=== PATIENT | female | born 1950 | race Caucasian/White ===

== ENCOUNTER → 2017-07-14 11:21 | Outpatient (CLI) | payer MEDICARE, BC, SELFPAY ==
[2017-07-14 11:39] LABS: Basophils # 0.1 K/mm3 (0-0.2); Basophils % 0.9 % (0.1-2.0); Eosinophils # 0.2 K/mm3 (0.0-0.4); Eosinophils % 3.5 % (0.1-12.0); Hematocrit 41.8 % (37.0-47.0); Hemoglobin 13.8 g/dL (12.2-16.2); Lymphocytes # 1.6 K/mm3 (0.7-4.5); Mean Corpuscular HGB Conc 33.1 g/dL (31.8-35.4); Mean Corpuscular Hemoglobin 28.3 pg (27.0-31.2); Mean Corpuscular Volume 85.4 fl (81-99); Mean Platelet Volume 7.2 fl (7.4-10.4); Monocytes # 0.4 K/mm3 (0.1-1.0); Monocytes % 5.6 % (1.7-9.3); Neutrophils # 4.4 K/mm3 (1.8-7.8); Neutrophils % 66.1 % (37.0-80.0); Platelet Count 346 K/mm3 (142-424); Red Blood Count 4.89 M/mm3 (4.20-5.40); Red Cell Distribution Width 13.1 % (11.5-17.5); White Blood Count 6.7 K/mm3 (4.8-10.8)
[2017-07-14 11:58] LABS: Hemoglobin A1C 7.2 % (0.0-7.0)
[2017-07-14 12:44] LABS: Alanine Aminotransferase 29 U/L (12-78); Albumin Level 4.1 gm/dL (3.4-5.0); Albumin/Globulin Ratio 1.6 (1.1-1.8); Alkaline Phosphatase 65 U/L (46-116); Anion Gap 13.1 mEq/L (5-15); Aspartate Amino Transferase 19 U/L (15-37); Bilirubin,Total 0.4 mg/dL (0.2-1.0); Blood Urea Nitrogen 22 mg/dL (7-18); Calcium 9.5 mg/dL (8.5-10.1); Carbon Dioxide 28 mmol/L (21.0-32.0); Chloride 105 mmol/L (98-107); Cholesterol 182 mg/dL (140-200); Creatinine,Serum 0.96 mg/dL (0.55-1.02); Estimated Glomerular Filt Rate 58 ml/min (>60); GFR (African American) 70 ML/MIN (>60); Globulin 2.6 gm/dl (1.3-3.2); Glucose 178 mg/dL (74-106); HDL Cholesterol 46 mg/dL (29-89); LDL Cholesterol 101 mg/dL (0-130); Potassium 5.1 mmoL/L (3.5-5.1); Sodium 141 mmol/L (136-145); Total Protein,Serum 6.7 gm/dL (6.4-8.2); Triglycerides 173 mg/dL (30-200); VLDL Cholesterol 35 mg/dL (0-40)
== END ==
PROVIDERS: Visit Provider Internal Medicine
DX: Z79.899 Other long term (current) drug therapy (principal); I10 Essential (primary) hypertension; E78.5 Hyperlipidemia, unspecified; F41.9 Anxiety disorder, unspecified
CPT/HCPCS: 36415; 80053; 80061; 83036; 85025

== ENCOUNTER → 2018-05-04 14:50 | Outpatient (CLI) | payer MEDICARE, BC, SELFPAY ==
--- NOTE | 2018-05-04 14:56 | MM_ITS ---
MM Dig screening mamm BI w/CAD ORDERING PHYSICIAN : Kulwant Bautista PATIENT AGE: 67 years GENDER: Female COMPARISON: Prior June 2011, April 2015 bilateral mammogram. From [facility] INDICATION: Routine: SCREENINGBilateral breast reductions. No hormones no new complaints. Noncontributory family history. Previous excisional & biopsy breast reductions TECHNIQUE: Standard CC and MLO images were obtained. R2 CAD reviewed. FINDINGS: Very heterogeneous pattern with Moderate asymmetry. Scattered islands of fibroglandular density and minimal nodularity again seen which which appear similar &, overall stable-to 2012 mammograms studies when technique is considered. . No discrete new areas of significant concern... However I would recommended and encouraged annual mammography in this heterogeneous appearing breast , Reflecting the prior breast reduction, yielding slightly difficult to evaluate breast . There are some benign appearing punctate mainly skin calcifications also noted bilaterally, left breast more than right. . IMPRESSION: ...... .No new areas of significant concern Heterogeneous asymmetric breast,- in part reflecting the prior breast reduction procedure Recommend & encouraged bilateral mammography in one year BI-RADS Category: 2 Benign Finding(s) RECOMMENDED FOLLOW-UP: 1YR 1 YEAR FOLLOW-UP (A letter has been sent to the patient regarding results of the study.) .
== END ==
PROVIDERS: PCP Internal Medicine; Visit Provider Internal Medicine
DX: Z12.31 Encounter for screening mammogram for malignant neoplasm of breast (principal)
CPT/HCPCS: 77067

== ENCOUNTER → 2018-09-28 16:31 | Outpatient (CLI) | payer MEDICARE, BC, SELFPAY ==
--- NOTE | 2018-09-28 16:39 | CT_ITS ---
CT HEAD WITHOUT CONTRAST [Referring physician:Kulwant Bautista History:ITS.REASON: DIFFICULTY SPEAKING Ordering physician:Kulwant Bautista Patient age:68 years Comparison:None TECHNIQUE: Axial images obtained without contrast. Brain and bone windows reviewed. All CT scans at the facility use one or more dose reduction, viz: automated exposure control, ma/kV adjustment per patient size (including targeted exams where dose is matched to indication, i.e. head), or iterative reconstruction technique. There is no mass, acute hemorrhage or extra-axial fluid collection. Ventricles, sulci and cortical areas are normal. There are symmetrical periventricular areas of hypodensity involving the white matter with some involvement of the anterior limb of the internal capsule areas bilaterally. There is a 5 mm punctate focus of CSF density in the superior right frontal deep white matter. There is a area of opacification of the superior visualized portion of the right maxillary sinus. The remainder of the visualized paranasal sinuses and mastoid air cells are clear. There is no acute osseous process. Impression:No acute intracranial process. Although nonspecific white matter findings likely from chronic microvascular ischemic change. 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 Right maxillary sinus mucosal thickening.
== END ==
PROVIDERS: PCP Internal Medicine; Visit Provider Internal Medicine
DX: I10 Essential (primary) hypertension (principal); R47.9 Unspecified speech disturbances
CPT/HCPCS: 70450

== ENCOUNTER → 2018-10-07 09:24 | Outpatient (CLI) | payer MEDICARE, BC, SELFPAY ==
--- NOTE | 2018-10-07 | CI_ITS ---
Cerebrovascular Exam Indications: 435.9 Unspecified transient cerebral ischemia. IMPRESSIONS 1. The bilateral vertebral arteries are patent with normal antegrade flow. 2. Study suggests less than 20% stenosis involving the right internal carotid artery and the left internal carotid artery. History: Headaches. Transient ischemic attack. Carotid duplex study. Complete study and Doppler flow study including spectral analysis, color and monroy scale imaging. Height: Height: 165.1cm. Height: 65in. Weight: Weight: 70.3kg. Weight: 154.7lb. Body mass index: BMI: 25.8kg/m^2. Body surface area: BSA: 1.81m^2. Location: Vascular laboratory. Patient status: Outpatient. Tables: Arterial flow: + +--------+---------+ Location V sys V ed + +--------+---------+ Right CCA - proximal 71.7cm/s 13.3cm/s + +--------+---------+ Right CCA - distal 61.9cm/s 11.8cm/s + +--------+---------+ Right ECA 127cm/s --------- + +--------+---------+ Right ICA - proximal 69.5cm/s 22.1cm/s + +--------+---------+ Right ICA - mid 99.3cm/s 35.2cm/s + +--------+---------+ Right ICA - distal 90.5cm/s 39.6cm/s + +--------+---------+ Right vertebral 60.3cm/s --------- + +--------+---------+ Left CCA - proximal 67.8cm/s 15.7cm/s + +--------+---------+ Left CCA - distal 45.7cm/s 15.4cm/s + +--------+---------+ Left ECA 57.3cm/s --------- + +--------+---------+ Left ICA - proximal 51.7cm/s -16.8cm/s + +--------+---------+ Left ICA - mid 91.8cm/s 28.9cm/s + +--------+---------+ Left ICA - distal 98.3cm/s 28.2cm/s + +--------+---------+ Left vertebral 55.9cm/s --------- + +--------+---------+ Velocity ratios: + + + + + + Right, V sys Right, V ed Left, V sys Left, V ed + + + + + + Max ICA/dist CCA 1.6 3.36 2.15 1.88 + + + + + + (Report amended ) Electronically signed by: Rey Epperson [id number]
== END ==
PROVIDERS: PCP Internal Medicine; Visit Provider Internal Medicine
DX: G45.8 Other transient cerebral ischemic attacks and related syndromes (principal)
CPT/HCPCS: 93880

== ENCOUNTER → 2018-12-23 15:01 | Outpatient (CLI) | payer MEDICARE, BC, SELFPAY ==
[2018-12-23 15:49] LABS: Basophils # 0.1 K/mm3 (0-0.2); Basophils % 1.1 % (0.1-2.0); Eosinophils # 0.3 K/mm3 (0.0-0.4); Eosinophils % 4.6 % (0.1-12.0); Hematocrit 39.3 % (37.0-47.0); Lymphocytes # 1.5 K/mm3 (0.7-4.5); Lymphocytes % 25.8 % (10-50); Mean Corpuscular HGB Conc 30.4 g/dL (31.8-35.4); Mean Corpuscular Hemoglobin 26.6 pg (27.0-31.2); Mean Corpuscular Volume 87.3 fl (81-99); Mean Platelet Volume 7.2 fl (7.4-10.4); Monocytes # 0.5 K/mm3 (0.1-1.0); Monocytes % 8.5 % (1.7-9.3); Neutrophils # 3.5 K/mm3 (1.8-7.8); Neutrophils % 59.9 % (37.0-80.0); Platelet Count 281 K/mm3 (142-424); Red Blood Count 4.51 M/mm3 (4.20-5.40); Red Cell Distribution Width 14.4 % (11.5-17.5); White Blood Count 5.8 K/mm3 (4.8-10.8)
[2018-12-23 16:34] LABS: Hemoglobin A1C 6.2 % (0.0-7.0)
[2018-12-23 17:05] LABS: Alanine Aminotransferase 19 U/L (12-78); Albumin Level 3.8 gm/dL (3.4-5.0); Albumin/Globulin Ratio 1.5 (1.1-1.8); Alkaline Phosphatase 63 U/L (46-116); Anion Gap 11.6 mEq/L (5-15); Aspartate Amino Transferase 10 U/L (15-37); Bilirubin,Total 0.3 mg/dL (0.2-1.0); Blood Urea Nitrogen 25 mg/dL (7-18); Calcium 8.8 mg/dL (8.5-10.1); Carbon Dioxide 30 mmol/L (21.0-32.0); Chloride 103 mmol/L (98-107); Chol/HDL Ratio 3.9 (1-3.5); Cholesterol 214 mg/dL (140-200); Creatinine,Serum 0.96 mg/dL (0.55-1.02); Estimated Glomerular Filt Rate 57 ml/min (>60); GFR (African American) 70 ML/MIN (>60); Globulin 2.6 gm/dl (1.3-3.2); Glucose 105 mg/dL (74-106); HDL Cholesterol 55 mg/dL (29-89); LDL Cholesterol 126 mg/dL (0-130); Potassium 4.6 mmoL/L (3.5-5.1); Sodium 140 mmol/L (136-145); Total Protein,Serum 6.4 gm/dL (6.4-8.2); Triglycerides 167 mg/dL (30-200); VLDL Cholesterol 33 mg/dL (0-40)
[2018-12-25 17:27] LABS: Microalbumin, Urine 3.8 ug/mL (Not Estab.)
== END ==
PROVIDERS: Visit Provider Internal Medicine
DX: E11.59 Type 2 diabetes mellitus with other circulatory complications (principal); I10 Essential (primary) hypertension; E78.5 Hyperlipidemia, unspecified; I73.9 Peripheral vascular disease, unspecified; G45.8 Other transient cerebral ischemic attacks and related syndromes
CPT/HCPCS: 36415; 80053; 80061; 82043; 83036; 85025

== ENCOUNTER → 2019-05-12 12:55 | Outpatient (CLI) | payer MEDICARE, BC, SELFPAY | PROVIDERS: PCP Internal Medicine; Visit Provider Specialist | DX: G47.19 Other hypersomnia (principal); G93.40 Encephalopathy, unspecified; R06.83 Snoring; R41.3 Other amnesia; G47.33 Obstructive sleep apnea (adult) (pediatric) | CPT/HCPCS: G0399 ==

== ENCOUNTER → 2019-06-14 08:19 | Outpatient (CLI) | payer MEDICARE, BC, SELFPAY ==
--- NOTE | 2019-06-14 10:13 | MR_ITS ---
PROCEDURE: MR HEAD/BRAIN WO CON CLINICAL INDICATION: memory loss, encephalopathy Memory loss COMPARISON: HEADWO CT head/brain wo con from 09/28/2018 TECHNIQUE: Routine multiplanar multi echo sequences are performed without gadolinium enhancement. FINDINGS: No midline shift, mass effect, intracranial hemorrhage, or hydrocephalus evident. There is slight increased diffusion signal in the periventricular white matter of the right parietal lobe. This however is felt to be due to T2 shine through and not an area of acute infarction. The cerebellopontine angles, cerebellum, and brainstem have an unremarkable appearance. No midline shift or mass effect is evident. There is generalized atrophy with scattered periventricular and subcortical T2 white matter hyperintensities consistent with ischemic gliotic change from microvascular disease. Scattered perivascular dilated spaces are noted. There is opacification of the right maxillary sinus. No mastoid effusion is evident. The pituitary, optic chiasm, and craniocervical junction have an unremarkable appearance. IMPRESSION: 1. No acute intracranial findings. 2. Atrophy with chronic periventricular ischemic gliotic change. 3. Right maxillary sinus disease Dictated by: Rey Epperson MD 06/14/2019 12:14 Electronically signed by Rey Epperson MD in [place] 06/14/2019 12:14
== END ==
PROVIDERS: PCP Internal Medicine; Visit Provider Specialist
DX: G47.19 Other hypersomnia (principal); G47.30 Sleep apnea, unspecified; G93.40 Encephalopathy, unspecified; R06.83 Snoring; R41.3 Other amnesia
CPT/HCPCS: 70551; 95816

== ENCOUNTER → 2019-06-21 12:27 | Outpatient (CLI) | payer MEDICARE, BC, SELFPAY ==
[2019-06-21 15:29] LABS: Thyroid Stimulating Hormone 3.02 uIU/mL (0.465-4.68)
[2019-06-22 09:51] LABS: Folate >20.0 ng/mL (>3.0); Vitamin B12 134 pg/mL (232-1245)
== END ==
PROVIDERS: Visit Provider Specialist
DX: G47.19 Other hypersomnia (principal); G47.30 Sleep apnea, unspecified; G93.40 Encephalopathy, unspecified; R06.83 Snoring; R41.3 Other amnesia
CPT/HCPCS: 36415; 82607; 82746; 84443

== ENCOUNTER → 2019-06-24 08:30 | Outpatient (CLI) | payer MEDICARE, BC, SELFPAY ==
[2019-06-24 09:45] LABS: Chloride 104 mmol/L (98-107); Potassium 5.1 mmoL/L (3.5-5.1); Sodium 140 mmol/L (136-145)
[2019-06-24 09:47] LABS: Blood Urea Nitrogen 21 mg/dl (7-17); Estimated Glomerular Filt Rate 49 ml/min (>60); GFR (African American) 59 ML/MIN (>60)
[2019-06-24 09:48] LABS: Alanine Aminotransferase 18 U/L (12-78); Albumin Level 4.1 g/dl (3.5-5.0); Albumin/Globulin Ratio 2.2 (1.1-1.8); Alkaline Phosphatase 66 U/L (38-126); Anion Gap 14.1 mEq/L (5-15); Aspartate Amino Transferase 20 U/L (14-36); Bilirubin,Total 0.4 mg/dl (0.2-1.3); Calcium 9.3 mg/dl (8.4-10.2); Carbon Dioxide 27 mmol/L (22.0-30.0); Chol/HDL Ratio 2.5 (1-3.5); Cholesterol 112 mg/dl (140-200); Globulin 1.9 g/dL (1.3-3.2); Glucose 150 mg/dl (74-100); HDL Cholesterol 45 mg/dl (40-60); Triglycerides 142 mg/dl (30-150); VLDL Cholesterol 28 mg/dL (0-40)
[2019-06-24 09:59] LABS: Direct LDL Cholesterol 58.52 mg/dL (100-129)
[2019-06-26 16:24] LABS: Antiparietal Cell Antibody 36.8 Units (0.0-20.0)
== END ==
PROVIDERS: PCP Internal Medicine; Visit Provider Nurse Practitioner Family
DX: E53.8 Deficiency of other specified B group vitamins (principal); E78.5 Hyperlipidemia, unspecified; I10 Essential (primary) hypertension; E11.9 Type 2 diabetes mellitus without complications; Z79.84 Long term (current) use of oral hypoglycemic drugs; Z79.891 Long term (current) use of opiate analgesic
CPT/HCPCS: 36415; 80053; 80061; 83036; 83516; 86340

== ENCOUNTER → 2019-10-06 12:50 | Outpatient (CLI) | payer MEDICARE, BC, SELFPAY | PROVIDERS: PCP Internal Medicine; Visit Provider Nurse Practitioner Family | DX: G47.33 Obstructive sleep apnea (adult) (pediatric) (principal) | CPT/HCPCS: 94762 ==

== ENCOUNTER → 2019-12-22 14:21 | Outpatient (CLI) | payer MEDICARE, BC, SELFPAY ==
--- NOTE | 2019-12-22 14:27 | XR_ITS ---
PROCEDURE: XR FOOT WT BEARING LT 3V CLINICAL INDICATION: foot pain COMPARISON: No exams were available for comparison FINDINGS: No fracture or dislocation. No lytic or blastic change. There is normal mineralization. The joint spaces are well-preserved. No significant degenerative/arthritic changes. No erosive changes evident. Other findings:None. IMPRESSION: No acute findings. Dictated by: Rey Epperson MD 12/22/2019 16:32 Rey Epperson MD in [place] 12/22/2019 16:32
--- NOTE | 2019-12-22 14:27 | XR_ITS ---
PROCEDURE: XR FOOT WT BEARING RT 3V CLINICAL INDICATION: foot pain COMPARISON: No exams were available for comparison FINDINGS: No fracture or dislocation. No lytic or blastic change. There is normal mineralization. The joint spaces are well-preserved. No significant degenerative/arthritic changes. No erosive changes evident. Other findings:None. IMPRESSION: No acute findings. Dictated by: Rey Epperson MD 12/22/2019 16:32 Rey Epperson MD in [place] 12/22/2019 16:32
[2019-12-22 14:59] LABS: Basophils # 0.1 K/mm3 (0-0.2); Basophils % 1.1 % (0.1-2.0); Eosinophils # 0.3 K/mm3 (0.0-0.4); Eosinophils % 3.6 % (0.1-12.0); Hematocrit 41.7 % (37.0-47.0); Hemoglobin 13.3 g/dL (12.2-16.2); Lymphocytes # 2.2 K/mm3 (0.7-4.5); Lymphocytes % 26.4 % (10-50); Mean Corpuscular Hemoglobin 27.8 pg (27.0-31.2); Mean Corpuscular Volume 86.9 fl (81-99); Mean Platelet Volume 7.2 fl (7.4-10.4); Monocytes # 0.6 K/mm3 (0.1-1.0); Monocytes % 7.5 % (1.7-9.3); Neutrophils # 5.2 K/mm3 (1.8-7.8); Neutrophils % 61.4 % (37.0-80.0); Platelet Count 315 K/mm3 (142-424); Red Cell Distribution Width 13.4 % (11.5-17.5); White Blood Count 8.4 K/mm3 (4.8-10.8)
[2019-12-22 16:33] LABS: Erythrocyte Sedimentation Rate 11 mm/hr (0-30)
[2019-12-22 16:44] LABS: Alanine Aminotransferase 23 U/L (12-78); Albumin Level 4.4 g/dl (3.5-5.0); Albumin/Globulin Ratio 1.9 (1.1-1.8); Alkaline Phosphatase 95 U/L (38-126); Anion Gap 15.9 mEq/L (5-15); Aspartate Amino Transferase 26 U/L (14-36); Bilirubin,Total 0.4 mg/dl (0.2-1.3); Blood Urea Nitrogen 23 mg/dl (7-17); Calcium 9.2 mg/dl (8.4-10.2); Carbon Dioxide 26 mmol/L (22.0-30.0); Chloride 104 mmol/L (98-107); Estimated Glomerular Filt Rate 37 ml/min (>60); GFR (African American) 45 ML/MIN (>60); Globulin 2.3 g/dL (1.3-3.2); Glucose 116 mg/dl (74-100); Potassium 4.9 mmoL/L (3.5-5.1); Sodium 141 mmol/L (136-145); Total Protein,Serum 6.7 g/dl (6.3-8.2)
[2019-12-22 16:49] LABS: C-Reactive Protein 0.4 mg/L (0-4)
[2019-12-22 17:15] LABS: Hemoglobin A1C 6.4 % (4.0-6.0)
== END ==
PROVIDERS: PCP Internal Medicine; Visit Provider Nurse Practitioner
DX: E11.8 Type 2 diabetes mellitus with unspecified complications (principal); L60.0 Ingrowing nail; Z79.84 Long term (current) use of oral hypoglycemic drugs
CPT/HCPCS: 36415; 73630; 80053; 83036; 85025; 85651; 86140; 87070; 87077; 87186; 87205

== ENCOUNTER → 2020-03-13 10:26 | Outpatient (CLI) | payer MEDICARE, BC, SELFPAY ==
[2020-03-13 12:45] LABS: Coronavirus 19 IgG Antibody Negative (Negative); Coronavirus 19 IgM Antibody Negative (Negative)
== END ==
PROVIDERS: Visit Provider Nurse Practitioner Family
DX: Z01.812 Encounter for preprocedural laboratory examination (principal); Z11.52 Encounter for screening for COVID-19
CPT/HCPCS: 36415; 86328

== ENCOUNTER → 2020-03-14 20:16 | Outpatient (CLI) | payer MEDICARE, BC, SELFPAY | PROVIDERS: PCP Internal Medicine; Visit Provider Nurse Practitioner Family | DX: G47.33 Obstructive sleep apnea (adult) (pediatric) (principal) | CPT/HCPCS: 95811 ==

== ENCOUNTER → 2020-06-26 10:00 | Outpatient (CLI) | payer MEDICARE, BC, SELFPAY ==
--- NOTE | 2020-06-26 10:21 | ECG_ITS ---
APPROVED REPORT Exam: Resting ECG HR:66 bpm ECG Measurements Heart Rate 66 AXES OH 150 P 38 QRSd 90 QRS -23 QT 420 T 30 QTc 440 Conclusion Normal sinus rhythm Poor R Wave Progression ST & T wave abnormality, consider lateral ischemia Abnormal ECG Electronically signed by : Kulwant Bautista, 06/26/2020 11:56:27
== END ==
PROVIDERS: PCP Internal Medicine; Visit Provider Internal Medicine
DX: Z01.810 Encounter for preprocedural cardiovascular examination (principal); M17.12 Unilateral primary osteoarthritis, left knee
CPT/HCPCS: 93005

== ENCOUNTER → 2020-07-04 07:49 | Outpatient (CLI) | payer MEDICARE, BC, SELFPAY ==
--- NOTE | 2020-07-04 | CA_ITS ---
APPROVED REPORT EXAM: Comprehensive 2D, Doppler, and color-flow Echocardiogram Glacing Machine Tender: Letitia Donahue CRT Ht: 5 ft 4 in Wt: 165lbs BSA: 1.80 BP: 110/62 mmHg Indications: Chest Pain, Diabetes, CAD, Hyperlipidemia, Hypertension/HDD, GERD 2D Dimensions LVOT 1.79 cm (M/F) 1.5-2.5 LA Volume 42.50 mL LA Volume Index 23.60 mL/m2 (M/F) 16-34 M-Mode Dimensions RVDd 3.76 cm (0.9-2.6) LA Diam 3.59 cm (1.9-4.0) LVDd 4.86 cm (3.5-5.7) Ao Diam 4.41 cm (2.0-3.7) LVDs 3.76 cm (3.5-5.7) IVSd 1.67 cm (0.6-1.1) PWd 0.95 cm (0.6-1.1) EF (Teich) 45.40% FS 22.60% EDV (Teich) 110.70 mL TAPSE 2.26 (<1.7) ESV (Teich) 60.40 mL LV Diastology E Decel Time 170.00 (160-240 msec) E/A Ratio 0.53 MED E' 3.20 (< 7 cm/sec) MED A' 8.20 cm/s E'/MED E' Ratio 14.72 (>14) LAT E' 4.90 (<10 cm/sec) LAT A' 10.20 cm/s E/LAT E' Ratio 9.61 (>14) Aortic Valve AI PHT 461.00 ms AO Peak GR. 5.60 mmHg Mitral Valve MV A Velocity 89.00 (40-130 cm/s) E/A Ratio 0.53 MV Decel. Time 170.00 (160-240 ms) Pulmonary Valve PV Peak Velocity 101.00 (50-150 cm/s) Tricuspid Valve TR P. Velocity 321.00 cm/s RAP Estimate 10.00 mmHg RVSP 51.10 mmHg Left Ventricle Left atrium is mildly enlarged, left ventricle is normal size, mild concentric left ventricular hypertrophy, visually estimated ejection fraction 55% with no regional wall motion abnormality, grade 1 diastolic dysfunction seen without tissue Doppler evidence of raise left atrial pressure. Right Ventricle Right atrium and right ventricle are normal size and contractility. Aortic Valve Aortic valve is minimally thickened and fibrosed, there is no aortic stenosis, there is mild aortic insufficiency. Mitral Valve Mitral valve grossly normal, there is trace mitral regurgitation. Tricuspid Valve Tricuspid grossly normal, there is trace tricuspid regurgitation. Pulmonic Valve Pulmonic valve is poorly visualized. Great Vessels Aortic root qualitatively appears to be mildly enlarged. Pericardium No significant pericardial effusion noted. Conclusion 1. Mildly enlarged left atrium, normal left ventricular size, mild concentric left ventricular hypertrophy, visually estimated ejection fraction 55% with no regional wall motion abnormality, grade 1 diastolic dysfunction seen without tissue Doppler evidence of raise left atrial pressure. 2. Thickened and calcified aortic valve with mild aortic stenosis. 3. Qualitatively mildly enlarged aortic root and ascending aorta. 4. Trace mitral and tricuspid regurgitation. 5. No significant pericardial effusion noted. Electronically signed by : Bob Lemus, 07/04/2020 19:12:12
[2020-07-04 09:53] LABS: Activated Partial Thrombo Time 23.4 seconds (22.8-30.6); INR 0.86 (0.9-1.1); Prothrombin Time 10.3 seconds (10.1-12.5)
== END ==
PROVIDERS: PCP Internal Medicine; Visit Provider Internal Medicine Cardiovascular Disease
DX: R07.9 Chest pain, unspecified (principal); R79.1 Abnormal coagulation profile
CPT/HCPCS: 36415; 85610; 85730; 93306

== ENCOUNTER → 2020-12-07 12:11 | Outpatient (CLI) | payer MEDICARE, BC, SELFPAY ==
[2020-12-07 14:25] LABS: Vitamin B12 747 pg/mL (239-931)
[2020-12-07 16:44] LABS: Folate > 20.00 ng/mL
[2020-12-08 16:20] LABS: Antiparietal Cell Antibody 31.4 Units (0.0-20.0)
== END ==
PROVIDERS: Visit Provider Specialist
DX: G47.33 Obstructive sleep apnea (adult) (pediatric) (principal); E53.8 Deficiency of other specified B group vitamins; F39 Unspecified mood [affective] disorder; Z87.898 Personal history of other specified conditions
CPT/HCPCS: 36415; 82607; 82746; 83516; 86340

== ENCOUNTER → 2022-09-18 12:08 | Outpatient (CLI) | payer MEDICARE, BC, SELFPAY ==
[2022-09-18 13:06] LABS: Microalbumin < 6.000 mg/L (0-16.7)
[2022-09-18 13:20] LABS: Creatinine,Urine Random 82 mg/dL (Not Estab.)
[2022-09-18 13:26] LABS: Alanine Aminotransferase 18 U/L (12-78); Albumin Level 4.3 g/dl (3.5-5.0); Albumin/Globulin Ratio 2.2 (1.1-1.8); Alkaline Phosphatase 49 U/L (38-126); Anion Gap 11.5 mEq/L (5-15); Aspartate Amino Transferase 23 U/L (14-36); Bilirubin,Total 0.4 mg/dl (0.2-1.3); Blood Urea Nitrogen 28 mg/dl (7-17); Calcium 9.3 mg/dl (8.4-10.2); Carbon Dioxide 29 mmol/L (22.0-30.0); Chloride 102 mmol/L (98-107); Cholesterol 177 mg/dl (140-200); Estimated Glomerular Filt Rate 40 ml/min (>60); GFR (African American) 48 ML/MIN (>60); Glucose 123 mg/dl (74-100); HDL Cholesterol 59 mg/dl (40-60); Potassium 4.5 mmoL/L (3.5-5.1); Sodium 138 mmol/L (136-145); Total Protein,Serum 6.3 g/dl (6.3-8.2); Triglycerides 129 mg/dl (30-150); VLDL Cholesterol 26 mg/dL (0-40)
[2022-09-18 13:36] LABS: Direct LDL Cholesterol 91.34 mg/dL (100-129)
[2022-09-18 14:22] LABS: Basophils % 0.3 % (0.1-2.0); Eosinophils # 0.1 K/mm3 (0.0-0.4); Eosinophils % 1.6 % (0.1-12.0); Hemoglobin 12.1 g/dL (12.2-16.2); Lymphocytes # 0.6 K/mm3 (0.7-4.5); Lymphocytes % 6.9 % (10-50); Mean Corpuscular HGB Conc 31.9 g/dL (31.8-35.4); Mean Corpuscular Hemoglobin 27.3 pg (27.0-31.2); Mean Corpuscular Volume 85.5 fl (81-99); Mean Platelet Volume 9.1 fl (7.4-10.4); Monocytes # 0.5 K/mm3 (0.1-1.0); Monocytes % 6.5 % (1.7-9.3); Neutrophils # 6.7 K/mm3 (1.8-7.8); Neutrophils % 84.7 % (37.0-80.0); Platelet Count 293 K/mm3 (142-424); Red Blood Count 4.45 M/mm3 (4.20-5.40); White Blood Count 7.9 K/mm3 (4.8-10.8)
[2022-09-18 15:45] LABS: Hemoglobin A1C 6.2 % (4.0-6.0)
== END ==
PROVIDERS: PCP Internal Medicine; Visit Provider Internal Medicine
DX: I25.10 Atherosclerotic heart disease of native coronary artery without angina pectoris (principal); I10 Essential (primary) hypertension; E11.59 Type 2 diabetes mellitus with other circulatory complications; E78.5 Hyperlipidemia, unspecified; E53.8 Deficiency of other specified B group vitamins; Z86.73 Personal history of transient ischemic attack (TIA), and cerebral infarction without residual deficits; Z79.84 Long term (current) use of oral hypoglycemic drugs
CPT/HCPCS: 80053; 80061; 82043; 82570; 83036; 85025

== ENCOUNTER 2022-11-14 11:10 | Emergency (ER) | payer MEDICARE, BC, SELFPAY ==
[2022-11-14] VITALS (7 sets, daily range): BP systolic 130–148; BP diastolic 72–80; PULSE 58–75; RESP 17–19; TEMP 36.7; O2SAT 92–98; BMI 26.6
--- NOTE | 2022-11-14 11:10 | ECG_ITS ---
APPROVED REPORT Exam: Resting ECG HR:56 bpm ECG Measurements Heart Rate 56 AXES DC 165 P 46 QRSd 110 QRS -21 QT 422 T 3 QTc 413 Conclusion SINUS BRADYCARDIA BORDERLINE LEFT AXIS DEVIATION [QRS AXIS < -20] NONSPECIFIC ST & T-WAVE ABNORMALITY BORDERLINE ECG UNCONFIRMED REPORT Electronically signed by : Dano Morelos MD 11/14/2022 19:56:45
[2022-11-14 11:22] LABS: POC Glucose,Bedside 131 (70-110)
--- NOTE | 2022-11-14 11:41 | XR_ITS ---
FINAL REPORT CLINICAL HISTORY: weakness FINDINGS: SINGLE VIEW CHEST The heart is normal in size. The mediastinum is unremarkable. There are mild right base opacities, favor atelectasis. There is no pneumothorax. IMPRESSION: Favor right base atelectasis. Reviewed, Interpreted and Dictated by Clovis Skaggs III, MD Transcribed by Mary Sampson Authenticated and [facility]
--- NOTE | 2022-11-14 11:41 | CT_ITS ---
FINAL REPORT TECHNIQUE: Thin section axial CT with IV contrast supplemented with multiplanar reconstruction under CT angiogram protocol. This study was performed with techniques to keep radiation doses as low as reasonably achievable (ALARA). Individualized dose reduction techniques using automated exposure control or adjustment of mA and/or kV according to the patient''s size were employed. NASCET criteria was utilized during interpretation. CLINICAL HISTORY: off balance, vision changes, LKN 1000 yesterday FINDINGS: Aortic arch: Arch shows no significant narrowing. Great vessel origins are widely patent. Right carotid: No significant stenosis is seen of the cervical common or internal carotid artery. Left carotid: No significant stenosis is seen of the cervical common or internal carotid artery. Vertebral: Left vertebral artery is dominant. No significant stenosis is present. IMPRESSION: No significant stenosis. Reviewed, Interpreted and Dictated by Clovis Skaggs III, MD Transcribed by Mary Sampson Authenticated and [facility]
--- NOTE | 2022-11-14 11:41 | CT_ITS ---
FINAL REPORT TECHNIQUE: Thin section axial CT with IV contrast supplemented with multiplanar reconstruction under CT angiogram protocol. 3-D reconstructions were performed. This study was performed with techniques to keep radiation doses as low as reasonably achievable (ALARA). Individualized dose reduction techniques using automated exposure control or adjustment of mA and/or kV according to the patient''s size were employed. CLINICAL HISTORY: off balance, vision changes, LKN 1000 yesterday FINDINGS: The distal vertebral, basilar and distal internal carotid arteries have an unremarkable appearance. No aneurysm is seen. Major intracranial vessels are patent without significant stenosis. IMPRESSION: No significant stenosis. Reviewed, Interpreted and Dictated by Clovis Skaggs III, MD Transcribed by Mary Sampson Authenticated and [facility]
--- NOTE | 2022-11-14 11:41 | CT_ITS ---
FINAL REPORT CLINICAL HISTORY: off balance, vision changes, LKN 1000 yesterday FINDINGS: Axial images of the head were obtained without contrast. Coronal reformatted images were also obtained. This study was performed with techniques to keep radiation doses as low as reasonably achievable (ALARA). Individualized dose reduction techniques using automated exposure control or adjustment of mA and/or kV according to the patient's size were employed. There is generalized age-appropriate atrophy. Periventricular low-attenuation areas are seen consistent with mild chronic ischemic changes. There is no evidence of intracranial hemorrhage or mass. There are several small chronic lacunar infarcts. There is no evidence of acute infarct. There is no evidence of shift of the midline structures. No skull abnormality is seen on the bone window images. IMPRESSION: Atrophy and mild periventricular chronic ischemic changes. No acute intracranial abnormality identified. Reviewed, Interpreted and Dictated by Clovis Skaggs III, MD Transcribed by Mary Sampson Authenticated and [facility]
[2022-11-14 11:52] LABS: Basophils % 0.6 % (0.1-2.0); Eosinophils # 0.2 K/mm3 (0.0-0.4); Eosinophils % 3.6 % (0.1-12.0); Hematocrit 39.3 % (37.0-47.0); Hemoglobin 12.9 g/dL (12.2-16.2); Lymphocytes # 1.3 K/mm3 (0.7-4.5); Lymphocytes % 22.9 % (10-50); Mean Corpuscular HGB Conc 32.7 g/dL (31.8-35.4); Mean Corpuscular Hemoglobin 27.9 pg (27.0-31.2); Mean Corpuscular Volume 85.2 fl (81-99); Mean Platelet Volume 7.8 fl (7.4-10.4); Monocytes # 0.4 K/mm3 (0.1-1.0); Monocytes % 7.3 % (1.7-9.3); Neutrophils # 3.6 K/mm3 (1.8-7.8); Neutrophils % 65.6 % (37.0-80.0); Platelet Count 275 K/mm3 (142-424); Red Blood Count 4.61 M/mm3 (4.20-5.40); Red Cell Distribution Width 13.8 % (11.5-17.5); White Blood Count 5.5 K/mm3 (4.8-10.8)
[2022-11-14 11:53] LABS: Chloride 105 mmol/L (98-107)
[2022-11-14 11:54] LABS: Potassium 4.1 mmoL/L (3.5-5.1); Sodium 140 mmol/L (136-145)
[2022-11-14 11:56] LABS: Alanine Aminotransferase 24 U/L (12-78); Aspartate Amino Transferase 30 U/L (14-36); Blood Urea Nitrogen 26 mg/dl (7-17); Creatinine Clearance Estimated 42 mL/min (50-200); Estimated Glomerular Filt Rate 40 ml/min (>60); GFR (African American) 48 ML/MIN (>60)
[2022-11-14 11:57] LABS: Albumin Level 3.9 g/dl (3.5-5.0); Albumin/Globulin Ratio 1.7 (1.1-1.8); Alkaline Phosphatase 52 U/L (38-126); Anion Gap 12.1 mEq/L (5-15); Bilirubin,Total 0.4 mg/dl (0.2-1.3); Calcium 9.4 mg/dl (8.4-10.2); Carbon Dioxide 27 mmol/L (22.0-30.0); Globulin 2.3 g/dL (1.3-3.2); Glucose 140 mg/dl (74-100); Magnesium 1.4 mg/dl (1.6-2.3); Total Protein,Serum 6.2 g/dl (6.3-8.2)
--- NOTE | 2022-11-14 12:30 | HMH.EDGENADL ---
Discharge Plan Disposition Patient Disposition: Home, Self-Care Condition: Good Prescriptions Prescriptions: New levofloxacin 750 mg tablet 750 mg PO DAILY 7 Days Qty: 7 0RF No Action icosapent ethyl 1 gram capsule 2 g PO ONCE paroxetine HCl 25 mg tablet extended release 24 hr 25 mg PO DAILY Patient Comments: TAKE 2 TABLETS BY MOUTH ONCE DAILY melatonin 10 mg capsule 10 mg PO HS atenolol 50 mg tablet 50 mg PO DAILY Patient Comments: TAKE 1 TABLET BY MOUTH ONCE DAILY sitagliptin phos-metformin 50-1,000 mg tablet 1 tab PO ONCE bupropion HCl 300 mg tablet extended release 24 hr PO DAILY amlodipine 5 mg tablet 5 mg PO DAILY lisinopril-hydrochlorothiazide 20-12.5 mg tablet 1 tab PO DAILY omeprazole 20 mg capsule,delayed release(DR/EC) 20 mg PO ONCE Patient Comments: TAKE 1 CAPSULE BY MOUTH IN THE MORNING FOR GERD simvastatin 40 mg tablet 40 mg PO HS Patient Comments: TAKE 1 TABLET BY MOUTH ONCE DAILY AT BEDTIME aspirin [Adult Low Dose Aspirin] 81 mg tablet,delayed release (DR/EC) 81 mg PO DAILY vit C-vit F-ftcuop-oejyhswc-omega 3 100 mg-15 unit-2 mg-100 mg capsule [id number]-[id number]-mg capsule See Rx Instructions PO .COMPLEX Rx Instructions: PO DAILY; vitamin E 200 unit capsule 200 unit PO DAILY cyanocobalamin (vitamin B-12) 1,000 mcg/mL solution 1,000 mcg SQ QMONTH Referrals Follow up/Referrals: Kulwant Bautista MD [Primary Care Provider] - See instructions Clinical Impressions Clinical Impression: Acute UTI, SHAD (acute kidney injury), Hypomagnesemia, Intention tremor Instructions Patient Instructions: Acute Kidney Injury, DI for Urinary Tract Infection (UTI), DI for Hypomagnesemia Discharge ED Provider: Tamiko Gibbs General Adult HPI General Chief complaint: Neuro Symptoms/Deficit Stated complaint: Neuro symptoms Time Seen by Provider: 11/14/22 11:21 Mode of Arrival: Family Vehicle Source of Information: Patient and Spouse Limitations: No Limitations Description of Symptoms (Recalled from ER Triage Doc. by RN): Pt sent over from [facility], [facility], after evaluation for poissible stroke symtoms. Pt reports yesterday, after water aerobics class, she felt off . States she was having difficulty moving her left side d/t new tremors. Pt states she would see things not there like bugs and fuzzy brown spots . reports that the pt had a couple bad hours but after she woke up things were better and wanted to make sure she was ok . NIHSS 0 at this time. History of Present Illness HPI narrative: This patient is a 72-year-old female with a history of diabetes and previous intracranial hemorrhage presenting from primary care provider's office for evaluation with concern for neurologic symptoms. Patient reports that for few days now, she has felt off. Yesterday, she seemed to be in her normal state of health when she went to [employer] aerobics around 10 AM. Once there, she stated that she felt like she was off balance, felt dizzy and like everything was spinning, and was seeing fuzzy brown spots. Patient felt like her tremor was significant worse on the left side and she was having issues walking and holding onto things. Patient states that she had some juice and ate once she got home because she was starving, and then she laid down to take a nap. When she woke up, she felt like she was better and thought that she was okay. They took their dog to the vet this morning and everything was fine. She went to see PCP today who noted a new bilateral intention tremor and sent the patient here for further evaluation and management. She states that she is currently feeling okay aside from the tremor and feeling slightly weak. She states that she still feels a little bit off, but her symptoms are significantly improved from how they were yesterday. She denies any current headaches, visi
[2022-11-14 12:45] LABS: Appearance,Urine CLEAR (Clear); Bilirubin,Urine Negative (Negative); Blood, Urine Negative (Negative); Color,Urine YELLOW (Yellow); Glucose,Urine (UA) Negative (Negative); Ketones,Urine Negative (Negative); Leukocyte Esterase,Urine 2+ (Negative); Microscopic, Urine URINE MICROSCOPIC (MICROSCOPIC); Nitrate,Urine POSITIVE (Negative); Protein,Urine Negative (Negative); Urobilinogen,Urine 0.2 EU/dl (0.2)
[2022-11-14 13:21] LABS: Bacteria,Urine 2+ /lpf; WBC,Urine 20-50 #/hpf (0-3)
--- NOTE | 2022-11-14 13:39 | PC.NURSE ---
SANDRA Stevenson rounded on patient, no needs at this time. Call light within reach.
== END 2022-11-14 15:12 | disposition home or self-care (01) ==
PROVIDERS: Emergency Provider Emergency Medicine; PCP Internal Medicine
DX: N17.9 Acute kidney failure, unspecified (principal); N39.0 Urinary tract infection, site not specified; E83.42 Hypomagnesemia; R25.1 Tremor, unspecified; Z87.891 Personal history of nicotine dependence; R00.1 Bradycardia, unspecified
CPT/HCPCS: 70450; 70496; 70498; 71045; 80053; 81001; 82962; 83735; 85025; 87086; 87088; 87186; 93005; 96365; 99285; J3475; Q9967

== ENCOUNTER 2022-11-17 21:07 | Emergency (ER) | payer MEDICARE, BC, SELFPAY ==
[2022-11-17 21:18] VITALS: BP 185/86; PULSE 65; RESP 20; TEMP 36.4; O2SAT 96; BMI 26.6
[2022-11-17 21:39] LABS: Basophils # 0.1 K/mm3 (0-0.2); Basophils % 0.7 % (0.1-2.0); Eosinophils # 0.4 K/mm3 (0.0-0.4); Eosinophils % 4.5 % (0.1-12.0); Hematocrit 42.1 % (37.0-47.0); Hemoglobin 13.3 g/dL (12.2-16.2); Lymphocytes # 1.4 K/mm3 (0.7-4.5); Lymphocytes % 17.3 % (10-50); Mean Corpuscular HGB Conc 31.7 g/dL (31.8-35.4); Mean Corpuscular Hemoglobin 27.1 pg (27.0-31.2); Mean Corpuscular Volume 85.5 fl (81-99); Mean Platelet Volume 7.6 fl (7.4-10.4); Monocytes # 0.6 K/mm3 (0.1-1.0); Monocytes % 7.6 % (1.7-9.3); Neutrophils # 5.8 K/mm3 (1.8-7.8); Neutrophils % 69.9 % (37.0-80.0); Platelet Count 294 K/mm3 (142-424); Red Blood Count 4.93 M/mm3 (4.20-5.40); Red Cell Distribution Width 13.8 % (11.5-17.5); White Blood Count 8.3 K/mm3 (4.8-10.8)
[2022-11-17 21:55] LABS: Alanine Aminotransferase 23 U/L (12-78); Albumin Level 4.2 g/dl (3.5-5.0); Albumin/Globulin Ratio 1.8 (1.1-1.8); Alkaline Phosphatase 71 U/L (38-126); Anion Gap 15.2 mEq/L (5-15); Aspartate Amino Transferase 28 U/L (14-36); Bilirubin,Total 0.2 mg/dl (0.2-1.3); Blood Urea Nitrogen 28 mg/dl (7-17); Calcium 9.1 mg/dl (8.4-10.2); Carbon Dioxide 25 mmol/L (22.0-30.0); Chloride 104 mmol/L (98-107); Creatinine Clearance Estimated 46 mL/min (50-200); Estimated Glomerular Filt Rate 44 ml/min (>60); GFR (African American) 53 ML/MIN (>60); Globulin 2.4 g/dL (1.3-3.2); Glucose 147 mg/dl (74-100); Potassium 4.2 mmoL/L (3.5-5.1); Sodium 140 mmol/L (136-145); Total Protein,Serum 6.6 g/dl (6.3-8.2)
[2022-11-17 22:00] VITALS: BP 158/86; PULSE 64; RESP 18; O2SAT 95
--- NOTE | 2022-11-17 22:15 | PC.NURSE ---
patient assisted to bathroom
[2022-11-17 22:26] LABS: Microscopic, Urine URINE MICROSCOPIC (MICROSCOPIC)
[2022-11-17 22:30] VITALS: BP 139/80; PULSE 64; RESP 20; O2SAT 95
[2022-11-17 22:33] LABS: Appearance,Urine CLEAR (Clear); Bilirubin,Urine Negative (Negative); Blood, Urine Negative (Negative); Color,Urine YELLOW (Yellow); Glucose,Urine (UA) Negative (Negative); Ketones,Urine Negative (Negative); Leukocyte Esterase,Urine TRACE (Negative); Nitrate,Urine Negative (Negative); Protein,Urine Negative (Negative); Specific Gravity, Urine 1.025 (1.005-1.030); Urobilinogen,Urine 0.2 EU/dl (0.2)
[2022-11-17 22:52] LABS: RBC,Urine Occasional #/hpf (0-3)
[2022-11-17 23:00] VITALS: BP 142/83; PULSE 63; RESP 16; O2SAT 94
[2022-11-17 23:30] VITALS: BP 147/78; PULSE 66; RESP 18; O2SAT 93
[2022-11-17 23:55] LABS: Magnesium 1.4 mg/dl (1.6-2.3)
[2022-11-18] VITALS: BP 143/76; PULSE 68; RESP 16; O2SAT 94
[2022-11-18 00:30] VITALS: BP 149/77; PULSE 70; RESP 16; O2SAT 95
--- NOTE | 2022-11-18 00:35 | HMH.EDGENADL ---
Discharge Plan Disposition Patient Disposition: Home, Self-Care Condition: Good Prescriptions Prescriptions: New ondansetron HCl 4 mg tablet 4 mg PO Q8H PRN (Reason: nausea and vomiting) 5 Days Qty: 30 0RF magnesium chloride 70 mg tablet,delayed release (DR/EC) 140 mg PO TID 5 Days Qty: 30 0RF No Action icosapent ethyl 1 gram capsule 2 g PO ONCE paroxetine HCl 25 mg tablet extended release 24 hr 25 mg PO DAILY Patient Comments: TAKE 2 TABLETS BY MOUTH ONCE DAILY melatonin 10 mg capsule 10 mg PO HS atenolol 50 mg tablet 50 mg PO DAILY Patient Comments: TAKE 1 TABLET BY MOUTH ONCE DAILY sitagliptin phos-metformin 50-1,000 mg tablet 1 tab PO ONCE bupropion HCl 300 mg tablet extended release 24 hr PO DAILY amlodipine 5 mg tablet 5 mg PO DAILY lisinopril-hydrochlorothiazide 20-12.5 mg tablet 1 tab PO DAILY omeprazole 20 mg capsule,delayed release(DR/EC) 20 mg PO ONCE Patient Comments: TAKE 1 CAPSULE BY MOUTH IN THE MORNING FOR GERD simvastatin 40 mg tablet 40 mg PO HS Patient Comments: TAKE 1 TABLET BY MOUTH ONCE DAILY AT BEDTIME aspirin [Adult Low Dose Aspirin] 81 mg tablet,delayed release (DR/EC) 81 mg PO DAILY vit C-vit J-kaarwo-omquxtbr-omega 3 100 mg-15 unit-2 mg-100 mg capsule [id number]-mg capsule See Rx Instructions PO .COMPLEX Rx Instructions: PO DAILY; vitamin E 200 unit capsule 200 unit PO DAILY cyanocobalamin (vitamin B-12) 1,000 mcg/mL solution 1,000 mcg SQ QMONTH levofloxacin 750 mg tablet 750 mg PO DAILY 7 Days Qty: 7 0RF Referrals Follow up/Referrals: Kulwant Bautista MD [Primary Care Provider] - See instructions Activity Restrictions/Add. Instructions Additional Instructions/Restrictions: Please take magnesium as prescribed. Please take Zofran as needed for nausea. Please follow-up with your primary care provider. Please return to the emergency department if you develop any new or worsening symptoms or become concerned for your health. Clinical Impressions Clinical Impression: Acute dehydration, Hypomagnesemia Instructions Patient Instructions: Magnesium, DI for Dehydration -- Adult Discharge ED Provider: Rosalio Conti Adult HPI General Chief complaint: Recheck/Abnormal Lab/Rx Stated complaint: weakness, dizziness, h/a, naesua Time Seen by Provider: 11/17/22 23:32 Mode of Arrival: Wheelchair Source of Information: Patient and Spouse Limitations: No Limitations Description of Symptoms (Recalled from ER Triage Doc. by RN): pt c/o HADDAD, BLE/BUE heaviness, dizziness, N/V intermittantly since 11/14. pt states she was seen here in the ED on 11/14 and was positive for UTI. pt has been on levaquin. History of Present Illness HPI narrative: 72-year-old female history of diabetes, recently seen for tremors, noted to have UTI, SHAD and hypomagnesemia. She presents for multiple complaints she reports that she is feeling weak in the bilateral lower extremities and in the right arm, though now spontaneously improved compared to earlier today. No reported facial droop or slurred speech. She reports that she has been taking her Levaquin as prescribed but reports that it makes her feel nauseous and she has not been able to eat or drink as much is normal. She denies fevers. She reports that she had a headache earlier but it is improved currently. She reports that she is primarily concerned about feeling weak and nauseous. Related Data Home Medications Medication Instructions Recorded Confirmed atenolol 50 mg tablet 50 mg PO DAILY 05/03/19 11/14/22 sitagliptin phosphate 50 1 tab PO ONCE 05/03/19 11/14/22 mg-metformin 1,000 mg tablet paroxetine HCl 25 mg 25 mg PO DAILY 09/22/19 11/14/22 tablet,extended release 24 hr icosapent ethyl 1 gram capsule 2 g PO ONCE 02/28/20 11/14/22 bupropion HCl 300 mg 24 hr tablet, mg PO DAILY 05/31/20 11/14/22
[2022-11-18 00:50] VITALS: BP 127/74; PULSE 69; RESP 18; O2SAT 92
[2022-11-18 01:43] VITALS: BP 134/71; PULSE 63; RESP 11; TEMP 36.4; O2SAT 94
== END 2022-11-18 01:56 | disposition home or self-care (01) ==
PROVIDERS: Emergency Medicine; Emergency Provider Emergency Medicine; PCP Internal Medicine
DX: E86.0 Dehydration (principal); E83.42 Hypomagnesemia; R53.1 Weakness; R42 Dizziness and giddiness; Z87.891 Personal history of nicotine dependence
CPT/HCPCS: 80053; 81001; 83735; 85025; 96361; 96365; 96375; 99285; J2405

== ENCOUNTER 2023-03-21 11:35 | Outpatient (CLI) | payer MEDICARE, BC, SELFPAY ==
[2023-03-21 12:29] LABS: Hemoglobin A1C 6.1 % (4.0-6.0)
[2023-03-21 12:34] LABS: Creatinine,Urine Random 114 mg/dL (Not Estab.)
[2023-03-21 12:36] LABS: Microalbumin < 6.000 mg/L (0-16.7)
[2023-03-21 12:41] LABS: Alanine Aminotransferase 17 U/L (12-78); Albumin Level 4.1 g/dl (3.5-5.0); Albumin/Globulin Ratio 2.1 (1.1-1.8); Alkaline Phosphatase 112 U/L (38-126); Aspartate Amino Transferase 22 U/L (14-36); Bilirubin,Total 0.3 mg/dl (0.2-1.3); Blood Urea Nitrogen 32 mg/dl (7-17); Calcium 8.7 mg/dl (8.4-10.2); Carbon Dioxide 28 mmol/L (22.0-30.0); Chloride 103 mmol/L (98-107); Cholesterol 170 mg/dl (140-200); Estimated Glomerular Filt Rate 44 ml/min (>60); GFR (African American) 53 ML/MIN (>60); Glucose 124 mg/dl (74-100); Magnesium 1.2 mg/dl (1.6-2.3); Total Protein,Serum 6.1 g/dl (6.3-8.2); Triglycerides 158 mg/dl (30-150); VLDL Cholesterol 32 mg/dL (0-40)
[2023-03-21 12:43] LABS: Anion Gap 9.5 mEq/L (5-15); HDL Cholesterol 43 mg/dl (40-60); Potassium 4.5 mmoL/L (3.5-5.1); Sodium 136 mmol/L (136-145)
[2023-03-21 12:52] LABS: Direct LDL Cholesterol 91.58 mg/dL (100-129)
== END 2023-03-21 23:59 ==
LOC: LAB.DROPOF 11:36
PROVIDERS: PCP Internal Medicine; Visit Provider Internal Medicine
DX: E11.59 Type 2 diabetes mellitus with other circulatory complications (principal); I25.10 Atherosclerotic heart disease of native coronary artery without angina pectoris; E78.5 Hyperlipidemia, unspecified; E53.8 Deficiency of other specified B group vitamins; E83.42 Hypomagnesemia; I10 Essential (primary) hypertension; I77.9 Disorder of arteries and arterioles, unspecified; Z79.84 Long term (current) use of oral hypoglycemic drugs
CPT/HCPCS: 80053; 80061; 82043; 82570; 83036; 83735

== ENCOUNTER 2023-04-14 18:54 | Emergency (ER) | payer MEDICARE, BC, SELFPAY ==
[2023-04-14 18:55] VITALS: BMI 26.6
--- NOTE | 2023-04-14 19:25 | XR_ITS ---
PROCEDURE INFORMATION: Exam: XR Right Foot Exam date and time: 04/14/2023 7:21 PM Age: 72 years old Clinical indication: Injury or trauma; Other: Stepped on nail; Puncture; Foot; Right; Foreign body involvement not specified TECHNIQUE: Imaging protocol: Radiologic exam of the right foot. Views: 3 or more views. COMPARISON: CR XR FOOT WT BEARING RT 3V 12/22/2019 2:30 PM FINDINGS: Bones/joints: Osteopenia. Soft tissues: Normal. IMPRESSION: 1. No evidence of acute osseous injury. 2. No evidence of radiopaque foreign body.
[2023-04-14 19:59] VITALS: BP 112/63; PULSE 67; RESP 16; TEMP 36.6; O2SAT 96; BMI 26.6
--- NOTE | 2023-04-14 19:59 | ED_ITS ---
Discharge Plan Disposition Patient Disposition: Home, Self-Care Condition: Good Prescriptions Prescriptions: New cephalexin 500 mg capsule 500 mg PO QID Qty: 40 0RF No Action icosapent ethyl 1 gram capsule 2 g PO ONCE paroxetine HCl 25 mg tablet extended release 24 hr 25 mg PO DAILY Patient Comments: TAKE 2 TABLETS BY MOUTH ONCE DAILY atenolol 50 mg tablet 50 mg PO DAILY Patient Comments: TAKE 1 TABLET BY MOUTH ONCE DAILY sitagliptin phos-metformin 50-1,000 mg tablet 1 tab PO ONCE amlodipine 5 mg tablet 5 mg PO DAILY lisinopril-hydrochlorothiazide 20-12.5 mg tablet 1 tab PO DAILY omeprazole 20 mg capsule,delayed release(DR/EC) 20 mg PO ONCE Patient Comments: TAKE 1 CAPSULE BY MOUTH IN THE MORNING FOR GERD simvastatin 40 mg tablet 40 mg PO HS Patient Comments: TAKE 1 TABLET BY MOUTH ONCE DAILY AT BEDTIME aspirin [Adult Low Dose Aspirin] 81 mg tablet,delayed release (DR/EC) 81 mg PO DAILY vit C-vit Y-fkhyia-nabcqqjd-omega 3 100 mg-15 unit-2 mg-100 mg capsule [id number] ne-cxdw-tm-mg capsule See Rx Instructions PO .COMPLEX Rx Instructions: PO DAILY; vitamin E 200 unit capsule 200 unit PO DAILY cyanocobalamin (vitamin B-12) 1,000 mcg/mL solution 1,000 mcg SQ QMONTH magnesium chloride 70 mg tablet,delayed release (DR/EC) 140 mg PO TID 5 Days Qty: 30 0RF Referrals Follow up/Referrals: Kulwant Bautista MD [Primary Care Provider] - See instructions Rupinder Vidal DPM [Staff Physician] - See instructions Activity Restrictions/Add. Instructions Additional Instructions/Restrictions: Keep the wound clean and dry. Keep a dressing on it if you are going to be getting it dirty. Watch the wound for signs of infection, such as redness, swelling, drainage, fe joshua. etc. Take tylenol for pain. Follow up with your regular doctor. I want you to follow up with Dr. Vidal (podiatry). Return in 10 days to have the sutures removed. GO TO THE ER FOR ANY WORSENING SYMPTOMS OR CONCERNS. 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 She has a puncture wound and a laceration on her right heel. She is a diabetic. Her tetanus immunization is not up to date. Related Data Home Medications Medication Instructions Recorded Confirmed atenolol 50 mg tablet 50 mg PO DAILY 05/03/19 02/05/23 sitagliptin phosphate 50 1 tab PO ONCE 05/03/19 02/05/23 mg-metformin 1,000 mg tablet paroxetine HCl 25 mg 25 mg PO DAILY 09/22/19 02/05/23 tablet,extended release 24 hr icosapent ethyl 1 gram capsule 2 g PO ONCE 02/28/20 02/05/23 amlodipine 5 mg tablet 5 mg PO DAILY 11/29/20 02/05/23 aspirin 81 mg tablet,delayed 81 mg PO DAILY 05/30/21 02/05/23 release (Adult Low Dose Aspirin) cyanocobalamin (vitamin B-12) 1,000 mcg SQ QMONTH 05/30/21 02/05/23 1,000 mcg/mL injection solution lisinopril 20 1 tab PO DAILY 05/30/21 02/05/23 mg-hydrochlorothiazide 12.5 mg tablet omeprazole 20 mg capsule,delayed 20 mg PO ONCE 05/30/21 02/05/23 release simvastatin 40 mg tablet 40 mg PO HS 05/30/21 02/05/23 vit C-vit P-dottax-lqjekzwp-omega See Rx Instructions PO .COMPLEX 05/30/21 02/05/23 3 100 mg-15 unit-2 mg-100 mg capsule vitamin E 200 unit capsule 200 unit PO DAILY 05/30/21 02/05/23 Previous Rx's Medication Instructions Recorded magnesium chloride 70 mg 140 mg PO TID 5 days #30 tabs 11/18/22 (magnesium chloride) tablet,delayed release cephalexin 500 mg capsule 500 mg PO QID #40 caps 04/14/23 Allergies Allergy/AdvReac Type Severity Reaction Status Date / Time Penicillins [PENICILLINS] Allergy Severe BREATHING Verified 04/14/23 20:03 DIFFICULTY Sulfa (Sulfonamide Allergy Verified 04/14/23 20:03 Antibiotics) [facility] Disclaimer: The information contained in this section may have been updated after the patient was seen, as this information can be updated by other users. Medical History Deficient knowledge of hysterectomy Surgical History Hx of breast reduction, elective Family History Other Family history non-contributory Social History Smoking Status: Former smoker alcohol intake: current substance use type: denies use current occupational status: retired Travel in the last 8 weeks: None household members: spouse housing: house ROS Obtained: Yes All systems reviewed & no additional complaints except as documented Constitutional Constitutional: Denies chills and Denies fever(s) Eyes Eyes: Denies eye discharge ENT Ears, Nose, Mouth, and Throat: Denies dizziness, Denies otalgia and Denies sore throat Cardiovascular Cardiovascular: Denies chest pain Respiratory Respiratory: Denies shortness of breath, Denies chest congestion, Denies cough, Denies stridor and Denies wheezing Gastrointestinal Gastrointestingal: Denies nausea or vomiting Musculoskeletal Musculoskeletal: Reports system reviewed and no additional complaints, except as documented and Denies arthralgias Integumentary/Breasts Skin/Breast: Reports as per HPI and Reports wounds Neurologic Neurologic: Denies dizziness and Denies paresthesias Allergic/Immunologic Allergic/Immunologic: Denies wheezing Physical Exam General General appearance: alert and in no apparent distress Head Head exam: atraumatic, normocephalic and normal inspection Eye Eye exam: Present normal appearance, PERRL and EOMI ENT ENT exam: Present normal exam, normal oropharynx, mucous membranes moist, TM's normal bilaterally and normal external ear exam Neck Neck exam: Present normal inspection, full ROM and trachea midline; Absent meningismus or lymphadenopathy Chest Chest inspection: Present normal inspection and symmetric chest wall rise; Absent tenderness Respiratory Respiratory exam: Present normal lung sounds bilaterally; Absent respiratory distress Cardiovascular Cardiovascular exam: Present regular rate and normal rhythm; Absent JVD Abdominal Exam Abdominal exam: Present soft and normal bowel sounds; Absent distention, tenderness or guarding Extremities Exam Extremities exam: Present normal inspection, full ROM and normal capillary refill; Absent calf tenderness Back Exam Back exam: Present normal inspection; Absent tenderness Neurological Exam Neurological exam: Present alert and oriented X3 Psychiatric Psychiatric exam: Present normal affect and normal mood Skin Skin exam: Present other (there is 3 cm linear laceration on the bottom of her right heel, no deep tissue damage noted, no foreign body noted. ) Lymphatic Lymphatic Findings: no adenopathy Medical Decision Making Medical Records Medical records reviewed: No I reviewed the patient's medical records. [place] Inquiry Pt receiving controlled substance: No Orders (Tests/Meds): ORDERS Category Date Time Status Foot XR right minimum 3 views [XR foot RT min 3V] Stat Exams 04/14/23 19:25 Completed Radiology Data #1: Image(s): Foot/Toes Image Reviewed: Yes I reviewed the patient's radiology image and Yes I have reviewed radiologist's interpretation Preliminary Findings: Normal/NAD and No Fracture Seen PROCEDURE INFORMATION: Exam: XR Right Foot Exam date and time: 04/14/2023 7:21 PM Age: 72 years old Clinical indication: Injury or trauma; Other: Stepped on nail; Puncture; Foot; Right; Foreign body involvement not specified TECHNIQUE: Imaging protocol: Radiologic exam of the right foot. Views: 3 or more views. COMPARISON: CR XR FOOT WT BEARING RT 3V 12/22/2019 2:30 PM FINDINGS: Bones/joints: Osteopenia. Soft tissues: Normal. IMPRESSION: 1. No evidence of acute osseous injury. 2. No evidence of radiopaque foreign body. Procedures Risk/Benefits of Procedure(s) Were Explained: Yes Laceration Laceration 1: Site: foot Side (If applicable): right Size (cm): 3 Description: linear Depth: simple, single layer Local Anesthetic: lidocaine 1% Amount of anesthesia used (mL): 1 Pre-repair: wound explored, irrigated extensively and deep structures intact Skin layer closed with: nylon Size (cm): 5-0 Number of sutures: 8 Technique: simple, interrupted (She tolerated this well, good closure was obtained, the edges were approximated well. )
[2023-04-14] MEDS: TET/DIPHTH/PERT-ADULT 0.5ML SYRINGE 0.5 ML IM (20:59)
--- NOTE | 2023-04-14 21:03 | PC.NURSE ---
8 stitches were placed in right heel
[2023-04-14 21:05] VITALS: BP 112/63; PULSE 67; RESP 16; TEMP 36.6; O2SAT 96
== END 2023-04-14 21:05 | disposition home or self-care (01) ==
PROVIDERS: Emergency Provider Nurse Practitioner Family; PCP Internal Medicine
DX: S91.311A Laceration without foreign body, right foot, initial encounter (principal); S91.331A Puncture wound without foreign body, right foot, initial encounter; E11.9 Type 2 diabetes mellitus without complications; Z23 Encounter for immunization; W45.0XXA Nail entering through skin, initial encounter; Z79.84 Long term (current) use of oral hypoglycemic drugs
CPT/HCPCS: 12002; 73630; 90471; 90715; 99204; 99213; G0463

== ENCOUNTER 2023-06-20 12:29 | Outpatient (CLI) | payer MEDICARE, BC, SELFPAY ==
[2023-06-20 15:06] LABS: Hemoglobin A1C 6.7 % (4.0-6.0)
[2023-06-20 16:00] LABS: Magnesium 1.7 mg/dl (1.6-2.3)
== END 2023-06-20 23:59 ==
LOC: LAB.DROPOF 12:30
PROVIDERS: PCP Internal Medicine; Visit Provider Internal Medicine
DX: E11.59 Type 2 diabetes mellitus with other circulatory complications (principal); I25.10 Atherosclerotic heart disease of native coronary artery without angina pectoris; I10 Essential (primary) hypertension; E83.42 Hypomagnesemia; D51.0 Vitamin B12 deficiency anemia due to intrinsic factor deficiency; I77.9 Disorder of arteries and arterioles, unspecified; Z79.84 Long term (current) use of oral hypoglycemic drugs
CPT/HCPCS: 83036; 83735

== ENCOUNTER 2023-09-18 16:09 | Outpatient (CLI) | payer MEDICARE, BC, SELFPAY ==
[2023-09-18 15:06] LABS: Basophils # 0.1 K/mm3 (0-0.2); Basophils % 1.1 % (0.1-2.0); Eosinophils # 0.2 K/mm3 (0.0-0.4); Eosinophils % 3.2 % (0.1-12.0); Hematocrit 37.2 % (37.0-47.0); Hemoglobin 12.5 g/dL (12.2-16.2); Lymphocytes % 19.2 % (10-50); Mean Corpuscular HGB Conc 33.7 g/dL (31.8-35.4); Mean Corpuscular Hemoglobin 28.8 pg (27.0-31.2); Mean Corpuscular Volume 85.5 fl (81-99); Mean Platelet Volume 8.8 fl (7.4-10.4); Monocytes # 0.4 K/mm3 (0.1-1.0); Monocytes % 8.2 % (1.7-9.3); Neutrophils # 3.5 K/mm3 (1.8-7.8); Neutrophils % 68.2 % (37.0-80.0); Platelet Count 231 K/mm3 (142-424); Red Blood Count 4.35 M/mm3 (4.20-5.40); Red Cell Distribution Width 14.6 % (11.5-17.5); White Blood Count 5.1 K/mm3 (4.8-10.8)
[2023-09-18 15:34] LABS: Alanine Aminotransferase 14 U/L (12-78); Albumin/Globulin Ratio 1.8 (1.1-1.8); Alkaline Phosphatase 95 U/L (38-126); Anion Gap 7.8 mEq/L (5-15); Aspartate Amino Transferase 21 U/L (14-36); Bilirubin,Total 0.5 mg/dl (0.2-1.3); Blood Urea Nitrogen 26 mg/dl (7-17); Calcium 9.3 mg/dl (8.4-10.2); Carbon Dioxide 29 mmol/L (22.0-30.0); Chloride 105 mmol/L (98-107); Chol/HDL Ratio 3.4 (1-3.5); Cholesterol 159 mg/dl (140-200); Estimated Glomerular Filt Rate 61 ml/min (>60); GFR (African American) 74 ML/MIN (>60); Globulin 2.2 g/dL (1.3-3.2); Glucose 126 mg/dl (74-100); HDL Cholesterol 47 mg/dl (40-60); Magnesium 1.4 mg/dl (1.6-2.3); Potassium 4.8 mmoL/L (3.5-5.1); Sodium 137 mmol/L (136-145); Total Protein,Serum 6.2 g/dl (6.3-8.2); Triglycerides 139 mg/dl (30-150); VLDL Cholesterol 28 mg/dL (0-40)
[2023-09-18 15:38] LABS: Hemoglobin A1C 6.3 % (4.0-6.0)
[2023-09-18 15:44] LABS: Direct LDL Cholesterol 76.85 mg/dL (100-129)
== END 2023-09-18 23:59 | disposition home or self-care (01) ==
LOC: LAB.DROPOF 16:10
PROVIDERS: PCP Internal Medicine; Visit Provider Internal Medicine
DX: E83.42 Hypomagnesemia (principal); I10 Essential (primary) hypertension; E11.59 Type 2 diabetes mellitus with other circulatory complications; E78.5 Hyperlipidemia, unspecified; E11.69 Type 2 diabetes mellitus with other specified complication; E53.8 Deficiency of other specified B group vitamins
CPT/HCPCS: 80053; 80061; 83036; 83735; 85025

== ENCOUNTER 2024-02-13 14:16 | Emergency (ER) | payer MEDICARE, BC, SELFPAY ==
[2024-02-13 14:17] VITALS: BP 120/80; PULSE 64; RESP 13; TEMP 36.5; O2SAT 95; BMI 25.4
--- NOTE | 2024-02-13 14:23 | ED_ITS ---
<Statement entered by Lizeth Cespedes MD - 02/13/24 23:22> I was consulted by the LADONNA, and we discussed the complexity of the problems being addressed. I approved the treatment and management plan for this patient's care in the emergency department, thus performing a substantive portion of the medical decision making. Lizeth Cespedes MD, LYNDA, FACEP Discharge Plan Disposition Patient Disposition: Home, Self-Care Condition: Good Prescriptions Prescriptions: New nitrofurantoin monohyd/m-cryst 100 mg capsule 100 mg PO BID 5 Days Qty: 10 0RF Rx Instructions: must administer with a meal/food No Action paroxetine HCl 20 mg tablet 20 mg PO DAILY Patient Comments: TAKE 1 TABLET BY MOUTH IN THE EVENING paroxetine HCl 30 mg tablet 30 mg PO DAILY Patient Comments: TAKE 1 TABLET BY MOUTH ONCE DAILY IN THE MORNING aspirin [Adult Low Dose Aspirin] 81 mg tablet,delayed release (DR/EC) 81 mg PO DAILY vit C-vit L-eumxgt-fmu-om-3 [id number] xm-fflj-ar-mg capsule See Rx Instructions PO .COMPLEX Rx Instructions: PO DAILY; vitamin E 200 unit capsule 200 unit PO DAILY cyanocobalamin (vitamin B-12) 1,000 mcg/mL solution 1,000 mcg SQ QMONTH metformin 1,000 mg tablet 1,000 mg PO BIDWMEAL Qty: 180 1RF ciprofloxacin HCl 250 mg tablet 250 mg PO BID Qty: 6 1RF simvastatin 40 mg tablet 40 mg PO HS Qty: 90 1RF magnesium oxide 400 mg magnesium tablet 400 mg PO DAILY Qty: 90 1RF lisinopril-hydrochlorothiazide 20-12.5 mg tablet See Rx Instructions .ROUTE .COMPLEX Qty: 90 1RF Dose Instruction: Take 1 tablet by mouth once daily Rx Instructions: Take 1 tablet by mouth once daily atenolol 50 mg tablet See Rx Instructions .ROUTE .COMPLEX Qty: 90 1RF Dose Instruction: Take 1 tablet by mouth once daily for 90 days Rx Instructions: Take 1 tablet by mouth once daily for 90 days omeprazole 20 mg capsule,delayed release(DR/EC) 20 mg PO ONCE Qty: 90 1RF amlodipine 5 mg tablet 5 mg PO DAILY Qty: 90 1RF Ozempic 0.25 mg or 0.5 mg (2 mg/3 mL) pen injector 0.5 mg SQ WEEKLY Qty: 3 0RF Rx Instructions: INJECT 0.5 MG WEEKLY FOR 4 WEEKS trazodone 50 mg tablet 50 mg PO HS Qty: 30 2RF Referrals Follow up/Referrals: Kulwant Bautista MD [Primary Care Provider] - See instructions Activity Restrictions/Add. Instructions Additional Instructions/Restrictions: Follow-up with your PCP on Friday for recheck. Return to ER for any worsening signs or symptoms as needed. I have sent a prescription to your pharmacy. Please take it till it is completed. Clinical Impressions Clinical Impression: Urinary tract infectious disease Qualifiers: Urinary tract infection type: site unspecified Hematuria presence: with hematuria Qualified Code(s): N39.0 - Urinary tract infection, site not specified Instructions Patient Instructions: DI for Urinary Tract Infection (UTI) Print Language Print Language: Setswana Discharge ED Provider: Juan Muhammad General Adult HPI General Chief complaint: Headache Stated complaint: headache, memory loss, stress Time Seen by Provider: 02/13/24 14:23 History of Present Illness HPI narrative: Patient presents for multiple complaints but primarily is here to be evaluated for possible stroke. Patient has had a reported infarct in her remote past and continues periodically to have memory issues. Additionally patient has obstructive sleep apnea on CPAP, reported insomnia for which she sees Dr. Ybarra, type 2 diabetes mellitus with diabetic polyneuropathy. Patient states that she has been having trouble sleeping over the last week on top of her normal chronic sleep issues. She saw her PCP who prescribed her trazodone yesterday. However patient states it is not helping and this morning she woke up with a headache. As she thought she might be having a stroke she attempted to go to Dr. Ybarra's office however they were closed today. She did decide to come to the ER for evaluation. On arrival patient denies chest pain fever chills hemoptysis hematochezia melena nausea vomiting diarrhea neck pain change in vision or sensory. Related Data Home Medications ?Medication ?Instructions ?Recorded ?Confirmed aspirin 81 mg tablet,delayed 81 mg PO DAILY 05/30/21 02/11/24 release (Adult Low Dose Aspirin) cyanocobalamin (vitamin B-12) 1,000 mcg SQ QMONTH 05/30/21 02/11/24 1,000 mcg/mL injection solution vit C-vit O-lbjzsi-sexeghgt-omega See Rx Instructions PO .COMPLEX 05/30/21 02/11/24 3 100 mg-15 unit-2 mg-100 mg capsule vitamin E 200 unit capsule 200 unit PO DAILY 05/30/21 02/11/24 paroxetine HCl 20 mg tablet 20 mg PO DAILY 09/18/23 02/11/24 paroxetine HCl 30 mg tablet 30 mg PO DAILY 09/18/23 02/11/24 Previous Rx's ?Medication ?Instructions ?Recorded magnesium oxide 400 mg PO DAILY #90 tabs 09/18/23 lisinopril 20 See Rx Instructions .Route 09/22/23 mg-hydrochlorothiazide 12.5 mg .COMPLEX #90 tabs tablet atenolol 50 mg tablet See Rx Instructions .Route 10/08/23 .COMPLEX #90 tabs metformin 1,000 mg tablet 1,000 mg PO BIDWMEAL #180 tabs 12/18/23 ciprofloxacin HCl 250 mg tablet 250 mg PO BID #6 tabs 01/08/24 simvastatin 40 mg tablet 40 mg PO HS #90 tabs 01/08/24 amlodipine 5 mg tablet 5 mg PO DAILY #90 tabs 01/20/24 omeprazole 20 mg capsule,delayed 20 mg PO ONCE #90 caps 01/20/24 release semaglutide 0.25 mg or 0.5 mg (2 0.5 mg (0.736 mL) SQ WEEKLY #3 mL 01/29/24 mg/3 mL) subcutaneous pen injector (Ozempic) trazodone 50 mg tablet 50 mg PO HS For sleep #30 tabs 02/11/24 nitrofurantoin 100 mg PO BID 5 days #10 caps 02/13/24 monohydrate/macrocrystals 100 mg capsule Allergies Allergy/AdvReac Type Severity Reaction Status Date / Time Penicillins (PENICILLINS) Allergy Severe BREATHING Verified 02/11/24 13:22 DIFFICULTY Sulfa (Sulfonamide Allergy Verified 02/11/24 13:22 Antibiotics) [facility] Disclaimer: The information contained in this section may have been updated after the patient was seen, as this information can be updated by other users. Medical History Deficient knowledge of hysterectomy Surgical History Hx of hysterectomy, total Hx of total knee replacement Hx of breast reduction, elective Family History Other Family history non-contributory Social History Smoking Status: Never smoker alcohol intake: current alcohol intake frequency: holidays/special occasions only substance use type: denies use current occupational status: retired Travel in the last 8 weeks: None household members: spouse housing: house Other Medical History Have you received the Pneumonia Vaccine: Yes ROS Obtained: Yes Systems reviewed as appropriate & no additional complaints except as documented Physical Exam General General appearance: alert and in no apparent distress Respiratory Respiratory exam: Present normal lung sounds bilaterally Cardiovascular Cardiovascular exam: Present regular rate Neurological Exam Neurological exam: Present alert, oriented X3, CN II-XII intact and normal gait; Absent motor sensory deficit Medical Decision Making Medical Records Medical records reviewed: Yes I reviewed the patient's medical records. Screening: Per USPSTF and CDC recommendations, given the prevalence of disease in our region, it is our hospital?s policy to screen for HIV and viral Hepatitis for all patients aged 18 and over and those with ongoing risk factors. [place] Inquiry Pt receiving controlled substance: No Vital Signs: 02/13/24 14:17 02/13/24 14:30 02/13/24 15:45 Temperature 97.7 F Temperature Source Oral Pulse Rate 62 75 Pulse Rate [Left Radial] 64 Respiratory Rate 13 Blood Pressure 117/70 Blood Pressure [Right Arm] 120/80 Blood Pressure Mean [Right Arm] 93 02 Sat by Pulse Oximetry 95 99 94 L Oxygen Delivery Method Room Air Room Air 02/13/24 16:43 Temperature 98.0 F Temperature Source Pulse Rate 73 Pulse Rate [Left Radial] Respiratory Rate 16 Blood Pressure 120/72 Blood Pressure [Right Arm] Blood Pressure Mean [Right Arm] 02 Sat by Pulse Oximetry Oxygen Delivery Method Room Air Lab Data Lab results reviewed: Yes I reviewed the patient's lab results. Lab Results 02/13/24 14:45: WBC 4.8, RBC 4.56, Hgb 13.2, Hct 37.6, MCV 82.5, MCH 28.9, MCHC 35.0, RDW 14.3, Plt Count 203, MPV 7.4, Neut % (Auto) 64.8, Lymph % (Auto) 22.0, [place] % (Auto) 7.1, Eos % (Auto) 4.5, Baso % (Auto) 1.6, Neut # (Auto) 3.1, Lymph # (Auto) 1.1, [place] # (Auto) 0.3, Eos # (Auto) 0.2, Baso # (Auto) 0.1, Sodium 141, Potassium 4.1, Chloride 107, Carbon Dioxide 27, Anion Gap 11.1, BUN 24 H, C reatinine 1.10 H, Estimated Creat Clear 47, Estimated GFR 48 L, Est GFR ( Amer) 59, Glucose 135 H, Calcium 9.0, Total Bilirubin 0.6, AST 26, ALT 20, Alkaline Phosphatase 84, Total Protein 5.9 L, Albumin 4.0, Globulin 1.9, A lbumin/Globulin Ratio 2.1 H, HIV 1&2 Antibody Rapid Nonreactive 02/13/24 15:34: Urine Color Yellow, Urine Appearance Clear, Urine pH 6.0, Ur Specific [place] 1.010, Urine Protein Negative, Urine Glucose (UA) Negative, Urine Ketones Negative, Urine Blood Negative, Urine Nitrate Negative, Urine Bilirubin Negative, Urine Urobilinogen 0.2, Ur Leukocyte Esterase Negative, Urine RBC 3-5, Urine WBC 50-100, Ur Squamous Epith Cells 5-10, Urine Bacteria 2+ 02/13/24 14:45 02/13/24 14:45 Orders (Tests/Meds): ED MEDICATIONS Discontinued Medications Generic Name Dose Route Start Last Admin Trade Name Freq PRN Reason Stop Dose Admin Acetaminophen 1,000 mg 02/13/24 14:39 02/13/24 14:49 Acetaminophen 500mg Tab PO 02/13/24 14:40 1,000 mg ONCE ONE Administration Diphenhydramine HCl 50 mg 02/13/24 14:39 02/13/24 14:49 Diphenhydramine 50mg/Ml Vial IV 02/13/24 14:40 50 mg ONCE ONE Administration Iopamidol 80 ml 02/13/24 15:12 02/13/24 15:15 Iopamidol-370 (76%);100ml Bottle IV 02/13/24 15:13 80 ml ONCE ONE Administration Nitrofurantoin Macrocrystals 100 mg 02/13/24 16:11 02/13/24 16:25 Nitrofurantoin 100mg Capsule PO 02/13/24 16:12 100 mg ONCE ONE Administration Sodium Chloride 10 ml 02/13/24 14:50 Sodium Chloride 0.9% 10ml Flush Syringe IV 03/14/24 14:49 NEEDED PRN Maintain IV Site Sodium Chloride 50 ml 02/13/24 15:12 02/13/24 15:14 0.9 % Sodium Chloride 50 Ml Vial IV 02/13/24 15:13 50 ml ONCE ONE Administration Sodium Chloride 10 ml 02/13/24 15:12 02/13/24 15:14 Sodium Chloride 0.9% 10ml Syr (Rad Only) IV 02/13/24 15:13 10 ml ONCE ONE Administration ORDERS Category Date Time Status CT angio head Stat Cat Scan 02/13/24 14:[address] angio neck Stat Cat Scan 02/13/24 14:[address] head/brain wo con Stat Cat Scan 02/13/24 14:39 Completed CBC w/Auto Diff [Complete Blood Count Auto Diff] Stat Lab 02/13/24 14:45 Completed CMP [Comprehensive Metabolic Panel] Stat Lab 02/13/24 14:45 Completed HIV (1&2) Antibody Rapid Stat Lab 02/13/24 14:45 Completed Hep C Ab with Reflex to RNA Stat Lab 02/13/24 14:45 Received UA [Urinalysis and Microscopic] Stat Lab 02/13/24 15:34 Completed Urine Culture Stat Micro 02/13/24 15:34 Received Medical Decision Narrative: In summary patient is a 73-year-old female who presents to the emergency department for evaluation of self-reported feelings of a stroke. Patient is hemodynamically stable upon arrival, afebrile. Sickle exam is remarkable for a Mcgee Coma Score 15, patient is awake alert and oriented person place and circumstance, cranial nerves II through XII are intact grossly to exam, patient has no gait abnormalities as she walked without assistance to the room in the ER, pupils equal round reactive to light without nystagmus, neck is supple without JVD or carotid bruits, breath sounds clinical bilaterally to the bases with adventitious sounds, patient has normal sinus rhythm apparently on the bedside monitor.. Differential diagnosis includes although not very likely based on her physiologic exam CVA versus TIA, anxiety, insomnia, encephalopathy etc. Initial workup will be conducted with hematologic labs CT scan of the head without contrast CTA of the head and neck urinalysis. Initial interventions include Tylenol and ibuprofen. Initial workup reviewed by me shows that her hematologic labs are nonactionable however her urinalysis is suggestive of a urinary tract infection. My informal interpretation of her imaging shows no acute intracranial processes prior to radiology read. Upon repeat evaluation patient reported complete resolution of her headache. Given this patient is appropriate for discharge with a prescription for Macrobid with first dose given here. Patient follow-up with PCP next week. Critical Care Critical Care Time Critical Care Time: No
--- NOTE | 2024-02-13 14:26 | ECG_ITS ---
APPROVED REPORT Exam: Resting ECG HR:71 bpm ECG Measurements Heart Rate 71 AXES GA 169 P 64 QRSd 97 QRS -11 QT 387 T 73 QTc 410 Conclusion SINUS RHYTHM NONSPECIFIC T-WAVE ABNORMALITY BORDERLINE ECG UNCONFIRMED REPORT Electronically signed by : TEJ PUGA, 02/15/2024 04:32:18
[2024-02-13 14:30] VITALS: BP 117/70; PULSE 62; O2SAT 99
--- NOTE | 2024-02-13 14:39 | CT_ITS ---
FINAL REPORT CLINICAL HISTORY: Memory loss and confusion COMPARISON: 11/14/2022 FINDINGS: Axial images of the head were obtained without contrast. Coronal reformatted images were also obtained. This study was performed with techniques to keep radiation doses as low as reasonably achievable (ALARA). Individualized dose reduction techniques using automated exposure control or adjustment of mA and/or kV according to the patient's size were employed. There is generalized age-appropriate atrophy. Periventricular low-attenuation areas are seen consistent with mild chronic ischemic changes. There is no evidence of intracranial hemorrhage or mass. There are several chronic basal ganglier lacunar infarcts which are stable. There is no evidence of acute infarct. There is no evidence of shift of the midline structures. No skull abnormality is seen on the bone window images. IMPRESSION: Atrophy and mild periventricular chronic ischemic changes. No acute intracranial abnormality identified. Reviewed, Interpreted and Dictated by Clovis Skaggs III, MD Transcribed by Daiana Mark Authenticated and [facility]
--- NOTE | 2024-02-13 14:40 | CT_ITS ---
FINAL REPORT TECHNIQUE: Thin section axial CT with IV contrast supplemented with multiplanar reconstruction under CT angiogram protocol. 3-D reconstructions were performed. This study was performed with techniques to keep radiation doses as low as reasonably achievable (ALARA). Individualized dose reduction techniques using automated exposure control or adjustment of mA and/or kV according to the patient''s size were employed. CLINICAL HISTORY: Memory loss and confusion FINDINGS: The distal vertebral, basilar and distal internal carotid arteries have an unremarkable appearance. No aneurysm is seen. Major intracranial vessels are patent without significant stenosis. IMPRESSION: No significant stenosis. Stable exam. Reviewed, Interpreted and Dictated by Clovis Skaggs III, MD Transcribed by Daiana Mark Authenticated and [facility]
--- NOTE | 2024-02-13 14:40 | CT_ITS ---
FINAL REPORT TECHNIQUE: Thin-section axial CT with IV contrast supplemented with multi planar reconstruction under CT angiogram protocol was performed of the neck. This study was performed technique to keep radiation doses as low as reasonably achievable, (ALARA). NASCET criteria was utilized during interpretation. CLINICAL HISTORY: Memory loss and confusion COMPARISON: 11/14/2022 FINDINGS: Aortic arch: Arch shows no significant narrowing. Great vessel origins are widely patent. Right carotid: No significant stenosis is seen at the cervical common or internal carotid artery. Left carotid: No significant stenosis is seen at the cervical common or internal carotid artery. Vertebrals: Left vertebral artery is dominant. No significant stenosis is present. IMPRESSION: No evidence of significant stenosis or major branch occlusion. Stable exam. Reviewed, Interpreted and Dictated by Clovis Skaggs III, MD Transcribed by Daiana Mark Authenticated and [facility]
[2024-02-13] MEDS: ACETAMINOPHEN 500MG TAB 1000 MG PO (14:49)
[2024-02-13] MEDS: diphenhydrAMINE 50MG/ML VIAL 50 MG IV (14:49)
[2024-02-13 14:53] LABS: Basophils # 0.1 K/mm3 (0-0.2); Basophils % 1.6 % (0.1-2.0); Eosinophils # 0.2 K/mm3 (0.0-0.4); Eosinophils % 4.5 % (0.1-12.0); Hematocrit 37.6 % (37.0-47.0); Hemoglobin 13.2 g/dL (12.2-16.2); Lymphocytes # 1.1 K/mm3 (0.7-4.5); Mean Corpuscular Hemoglobin 28.9 pg (27.0-31.2); Mean Corpuscular Volume 82.5 fl (81-99); Mean Platelet Volume 7.4 fl (7.4-10.4); Monocytes # 0.3 K/mm3 (0.1-1.0); Monocytes % 7.1 % (1.7-9.3); Neutrophils # 3.1 K/mm3 (1.8-7.8); Neutrophils % 64.8 % (37.0-80.0); Platelet Count 203 K/mm3 (142-424); Red Blood Count 4.56 M/mm3 (4.20-5.40); Red Cell Distribution Width 14.3 % (11.5-17.5); White Blood Count 4.8 K/mm3 (4.8-10.8)
[2024-02-13 15:03] LABS: Alanine Aminotransferase 20 U/L (12-78); Albumin/Globulin Ratio 2.1 (1.1-1.8); Alkaline Phosphatase 84 U/L (38-126); Anion Gap 11.1 mEq/L (5-15); Aspartate Amino Transferase 26 U/L (14-36); Bilirubin,Total 0.6 mg/dl (0.2-1.3); Blood Urea Nitrogen 24 mg/dl (7-17); Carbon Dioxide 27 mmol/L (22.0-30.0); Chloride 107 mmol/L (98-107); Creatinine Clearance Estimated 47 mL/min (50-200); Estimated Glomerular Filt Rate 48 ml/min (>60); GFR (African American) 59 ML/MIN (>60); Globulin 1.9 g/dL (1.3-3.2); Glucose 135 mg/dl (74-100); Potassium 4.1 mmoL/L (3.5-5.1); Sodium 141 mmol/L (136-145); Total Protein,Serum 5.9 g/dl (6.3-8.2)
[2024-02-13] MEDS: 0.9 % SODIUM CHLORIDE 50 ML VIAL IV (15:14)
[2024-02-13] MEDS: SODIUM CHLORIDE 0.9% 10ML SYR (RAD ONLY) 10 ML IV (15:14)
[2024-02-13] MEDS: IOPAMIDOL-370 (76%);100ML BOTTLE 80 ML IV (15:15)
[2024-02-13 15:36] LABS: Microscopic, Urine URINE MICROSCOPIC (MICROSCOPIC)
[2024-02-13 15:45] VITALS: PULSE 75; O2SAT 94
[2024-02-13 15:47] LABS: Appearance,Urine CLEAR (Clear); Bilirubin,Urine Negative (Negative); Blood, Urine Negative (Negative); Color,Urine YELLOW (Yellow); Glucose,Urine (UA) Negative (Negative); Ketones,Urine Negative (Negative); Leukocyte Esterase,Urine Negative (Negative); Nitrate,Urine Negative (Negative); Protein,Urine Negative (Negative); Urobilinogen,Urine 0.2 EU/dl (0.2)
[2024-02-13 16:06] LABS: Bacteria,Urine 2+ /lpf; WBC,Urine 50-100 #/hpf (0-3)
[2024-02-13] MEDS: NITROFURANTOIN 100MG CAPSULE 100 MG PO (16:25)
[2024-02-13 16:43] VITALS: BP 120/72; PULSE 73; RESP 16; TEMP 36.7; O2SAT 95
[2024-02-13 17:44] LABS: HIV (1&2) Antibody Rapid NONREACTIVE (NONREACTIVE)
[2024-02-14 09:01] LABS: HCV Ab Non Reactive (Non Reactive)
== END 2024-02-13 16:43 | disposition home or self-care (01) ==
PROVIDERS: Physician Assistant; Emergency Provider Student in an Organized Health Care Education/Training Program; PCP Internal Medicine
DX: N39.0 Urinary tract infection, site not specified (principal); R51.9 Headache, unspecified; R41.3 Other amnesia
CPT/HCPCS: 70450; 70496; 70498; 80053; 81001; 85025; 86803; 87086; 87389; 93005; 96374; 99285; J1200; Q9967

== ENCOUNTER 2024-07-01 11:40 | Outpatient (CLI) | payer MEDICARE, BC, SELFPAY ==
[2024-07-01 15:32] LABS: Hemoglobin A1C 5.5 % (4.0-6.0)
[2024-07-01 15:37] LABS: Creatinine,Urine Random 171 mg/dL (Not Estab.)
[2024-07-01 15:44] LABS: Albumin Level 4.1 g/dl (3.5-5.0); Chloride 102 mmol/L (98-107); Potassium 4.7 mmoL/L (3.5-5.1); Sodium 138 mmol/L (136-145)
[2024-07-01 15:47] LABS: Alanine Aminotransferase 16 U/L (12-78); Albumin/Globulin Ratio 1.9 (1.1-1.8); Alkaline Phosphatase 84 U/L (38-126); Anion Gap 12.7 mEq/L (5-15); Aspartate Amino Transferase 25 U/L (14-36); Bilirubin,Total 0.7 mg/dl (0.2-1.3); Blood Urea Nitrogen 20 mg/dl (7-17); Calcium 9.2 mg/dl (8.4-10.2); Carbon Dioxide 28 mmol/L (22.0-30.0); Cholesterol 112 mg/dl (140-200); Estimated Glomerular Filt Rate 48 ml/min (>60); GFR (African American) 59 ML/MIN (>60); Globulin 2.2 g/dL (1.3-3.2); Glucose 86 mg/dl (74-100); Total Protein,Serum 6.3 g/dl (6.3-8.2); Triglycerides 157 mg/dl (30-150); VLDL Cholesterol 31 mg/dL (0-40)
[2024-07-01 15:48] LABS: Chol/HDL Ratio 2.9 (1-3.5); HDL Cholesterol 39 mg/dl (40-60); Magnesium 1.2 mg/dl (1.6-2.3)
[2024-07-01 15:59] LABS: Direct LDL Cholesterol 41.06 mg/dL (100-129)
--- OUTSIDE RECORDS SUMMARY | 2024-07-02 10:07 | XMS_ITS | Clinical Summary ---
Author Organization [facility] Address [address] [place] [address] Phone Care Team Providers Care Rehabilitation Psychologist Name Role Phone Karley CONTEH, Chava Vaca Unavailable [phone] FANTASMA CONTEH, VEL Eugene Primary Care Provider [phone] Reason for Visit and Chief Complaint The Chief Complaint is: left knee pain Problems Includes: Problems addressed during this encounter and other active Problems All Visits Onset Date Resolved Date Provider Condition S tatus Joint Pain in the Left Knee 02/23/2020 Chava Crandall MD Active Last Documented On 0 1:09PM ; [facility] Plan of Treatment Follow up: 12 months with xoa - Last Documented On 08/15/2020 2:19PM ; [facility] Assessments Includes: Assessments from this encounter Findings Overall, the patient is very pleased with her knee surgery. We discussed the importance of continuing to follow our postoperative protocols diligently. They are at increased risk for permanent knee pain, stiffness, dissatisfaction. They expressed understanding. Follow up for six weeks - Last Documented On 08/15/2020 2:19PM ; [facility] Medical Equipment - Implanted Devices Includes: Current Devices No Medical Equipment Recorded Medications Includes: Medications discussed during this encounter and other current Medications New / Renewed during this visit Chava Crandall MD on 07/24/2020 Ultram 50 MG Oral Tablet Provider: Chava hook MD 5 day supply: 30 tablet, 0 refills Diagnosis: 1-2 po q6h prn pain Pharmacy: [id number] - [address], [phone] - Last Documented On 1 4:39PM By Shan Crandall ; [facility], [facility] Current Medications (continue as prescribed) B Complex-B12 Oral Tablet 02/23/2020 Provider: Diagnosis: Last Documented On 0 1:28PM By Rosie Morley ; [facility], [facility] Adult Aspirin Regimen 81 MG Oral Tablet Delayed Releas e 02/23/2020 Provider: Diagnosis: Last Documented On 0 1:28PM By Rosie Morley ; [facility] MegaRed [place]-3 Krill Oil 500 MG Oral Capsule 02/23/20 20 Provider: Diagnosis: Last Documented On 0 1:28PM By Rosie Morley ; [facility], [facility] Ocuvite Adult 50+ Oral Capsule 02/23/2020 Provider: Diagnosis: Last Documented On 0 1:28PM By Rosie Morley ; [facility], [facility] Vascepa 1 GM Oral Capsule 02/23/2020 Provider: Diagnosis: Last Documented On 0 1:27PM By Rosie Morley ; [facility], [facility] Simvastatin 40 MG Oral Tablet 02/23/2020 Provider: Diagnosis: Last Documented On 0 1:27PM By Rosie Morley ; [facility], [facility] Paxil CR 25 MG Oral Tablet Extended Release 24 Hour Provider: Diagnosis: Last Documented On 0 1:27PM By Rosie Morley ; [facility], [facility] Omeprazole 20 MG Oral Tablet Delayed Release 02/22 Provider: Diagnosis: Last Documented On 0 1:27PM By Rosie Morley ; [facility], [facility] Lisinopril-hydroCHLOROthiazide 10-12.5 MG Oral Tablet 02/23/2020 Provider: Diagnosis: Last Documented On 0 1:27PM By Rosie Morley ; [facility], [facility] Janumet 50-1000 MG Oral Tablet 02/23/2020 Provider: Diagnosis: Last Documented On 0 1:26PM By Rosie Morley ; [facility] buPROPion HCl ER (XL) 300 MG Oral Tablet Extended Release 24 Hour 02/23/2020 Provider: Diagnosis: Last Documented On 0 1:26PM By Rosie Morley ; [facility] Atenolol 50 MG Oral Tablet 02/23/2020 Provider: Diagnosis: Last Documented On 0 1:26PM By Rosie Morley ; [facility] amLODIPine Besylate 10 MG Oral Tablet 02/23/2020 Pro vider: Diagnosis: Last Documented On 0 1:26PM By Rosie Morley ; [facility] Past Medications on file Neurontin 300 MG Oral Capsule 07/06/2020 - 10/04/2020 Provider: Chava peña MD Diagnosis: 1 every bedtime *DO NOT FILL UNTIL 07-07-20 Last Documented On 1 4:40PM By Shan Crandall ; [facility] Ultram 50 MG Oral Tablet 07/06/2020 - 07/11/2020 Provider: Chava peña MD Diagnosis: 1-2 po q6h prn pain *DO NOT FILL UNTIL 07-07-20 Last Documented On 1 4:40PM By Shan Crandall ; [facility] oxyCODONE HCl 5 MG Oral Tablet 07/06/2020 - 07/11/2020 Provider: Chava peña MD Diagnosis: 1-2 po q 4-6h *DO NOT FILL UNTIL 07-07-20 Last Documented On 1 4:40PM By Shan Cradnall ; [facility], [facility] Ondansetron HCl 4 MG Oral Tablet 07/06/2020 - 07/11/2020 Provider: Chava Crandall MD Diagnosis: 2niu9-2t *DO NOT FILL UNTIL 07-07-20 Last Documented On 1 2:32PM By Mally Patel ; [facility] Meloxicam 15 MG Oral Tablet 07/06/2020 - 07/20/2020 Provider: Chava peña MD Diagnosis: once a day *DO NOT FILL UNTIL 07-07-20 Last Documented On 1 2:32PM By Mally Patel ; [facility] Colace 100 MG Oral Capsule 07/06/2020 - 10/04/2020 Provider: Chava peña MD Diagnosis: 1-2 tabs daily *DO NOT FILL UNTIL 07-07-20 Last Documented On 1 2:32PM By Mally Patel ; [facility] Cefadroxil 500 MG Oral Capsule 07/06/2020 - 2020 Provider: Chava peña MD Diagnosis: twice a day *DO NOT FILL UNTIL 07-07-20 Last Documented On 1 2:32PM By Mally Patel ; [facility] Acetaminophen 500 MG Oral Tablet 07/06/2020 - 08/05/2020 Provider: Chava Crandall MD Diagnosis: 2 three times a day *DO NOT FILL UNTIL 07-07-20 Last Documented On 1 2:32PM By Mally Patel ; [facility] Medications Administered Includes: Administered Medications from this encounter No Administered Medications Recorded Vital Signs Includes: Vital Signs from this encounter Vital Name 07/24/2020 03:54P Blood Pressure Sitting (mmHg) 128/64 Pulse Rate-Sitting (bpm) 62 Height (in) 64.5 Weight (lb) 158 Body Mass Index (kg/m2) 26.7 Body Surface Area (m2) 1.8 Note: rj Last Documented: On 07/24/2020 3:56PM ; [facility], [facility] Results Includes: Results discussed during this encounter No Results Recorded For Specified Dates History of Present Illness Includes: History of Present Illness from this encounter MUNIR Alba is a 70 year old female. - Allergy list reviewed - Problem list reviewed - Medication reconciliation performed - Medication list reviewed with patient Social History Description Last Updated Non-smoker 02/23/2020 Last Documented On 1 3:53PM ; [facility] Caffeine use 02/23/2020 Last Documented On 1 3:53PM ; [facility] Not a current smoker. 02/23/2020 Last Documented On 1 3:53PM ; [facility] Not exercising regularly 02/23/2020 Last Documented On 1 3:53PM ; [facility] Not using alcohol 02/23/2020 Last Documented On 1 3:53PM ; [facility] Not using drugs 02/23/2020 Last Documented On 1 3:53PM ; [facility] Recent change in diet 02/23/2020 Last Documented On 1 3:53PM ; [facility] Smoking Status Unknown Procedures and Surgical History Includes: Procedures from this encounter Procedures Code Diagnosis Performing Provider Service L ocation Service Date use of tobacco assessment performed 1000F Last Documented On 1 3:53PM ; [facility] Pt received screening for fall risk G8270 Last Documented On 1 3:53PM ; [facility] an X-ray was performed 45114 Last Documented On 1 3:53PM ; [facility] an MRI was performed 93183 Last Documented On 1 3:53PM ; [facility] Medical History Includes: Medical History addressed during this encounter Description Last Updated Use of CPAP 04/06/2020 Last Documented On 1 3:53PM ; [facility] Anemia 02/23/2020 Last Documented On 1 3:53PM ; [facility] Heartburn / Acid Reflux 02/23/2020 Last Documented On 1 3:53PM ; [facility] History of depression 02/23/2020 Last Documented On 1 3:53PM ; [facility] History of diabetes mellitus 02/23/2020 Last Documented On 1 3:53PM ; [facility] History of diverticulitis of colon 02/22 Last Documented On 1 3:53PM ; [facility] History of heart disease 02/23/2020 Last Documented On 1 3:53PM ; [facility] History of Rheumatology 02/23/2020 Last Documented On 1 3:53PM ; [facility] Hypertension 02/23/2020 Last Documented On 1 3:53PM ; [facility] Sleep Apnea 02/23/2020 Last Documented On 1 3:53PM ; [facility] Thyroid Disease 02/23/2020 Last Documented On 1 3:53PM ; [facility] A recent immunization for flu 02/23/2020 Last Documented On 1 3:53PM ; [facility] A recent immunization for pneumococcal p neumonia 02/23/2020 Last Documented On 1 3:53PM ; [facility], [facility] History of Arthroscopy 02/23/2020 Last Documented On 1 3:53PM ; [facility] Hysterectomy 02/23/2020 Last Documented On 1 3:53PM ; [facility], [facility] Family History Includes: Family History addressed during this encounter Description Last Updated Diabetes mellitus 02/23/2020 Last Documented On 1 3:53PM ; [facility] Family history of heart disease 02/23/20 20 Last Documented On 1 3:53PM ; [facility] Family history of hypertension 0 Last Documented On 1 3:53PM ; [facility] Stroke / Seizures 02/23/2020 Last Documented On 1 3:53PM ; [facility] Review of Systems Includes: Review of Systems from this encounter Systemic: Feeling tired. No recent weight loss and no recent weight gain. Head: No headache. Sinus pain. Eyes: No vision problems, no Cataracts, no Glasses/Contacts, and no Glaucoma. Otolaryngeal: No hearing loss and no tinnitus. Cardiovascular: Chest pain or discomfort, palpitations, and Hypertension. No High Cholesterol. Pulmonary: No daytime asthma symptoms and no chronic cough. No wheezing. Gastrointestinal: Heartburn. No abdominal pain. No Indigestion, no Acid Reflux, no Peptic Ulcer, no GI Stomach Bleed, and no Ulcers. Endocrine: No hot flashes. Muscle weakness and Diabetes. No Hypothyroid and no Hyperthyroid. Hematologic: No easy bleeding and no tendency for easy bruising. Anemia. Musculoskeletal: No Arthritis and no lower back pain. No soft tissue swelling and no localized joint pain. Neurological: Dizziness. No convulsions and no numbness. Psychological: Anxiety. No emotional lability and no depression. Insomnia. Not crying for no reason. Skin: No dry skin. Ulcers. No Scars. Rash: Allergic and Immunologic: Complaint of seasonal allergic reaction. Mental Status Includes: Mental Status from this encounter Description Anxiety Functional Status Includes: Functional Status from this encounter No Functional Status Recorded Physical Exam Includes: Physical Exam from this encounter Allergies Includes: Active Allergies Substance Type Reaction Onset Date Resolved Date Statu s Penicillins Allergy 08/01/2021 Active Last Documented On 2 1:49PM ; [facility] Neurontin Allergy hallucinations 07/24/2020 Acti ve Last Documented On 2 1:32PM ; [facility], [facility] Encounters Encounter Provider Location Date Check-In Time Check-Out Time Diagnosis Post Op Chava Crandall MD [facility] 07/25/19 2:20PM 4:15PM Insurance Includes: Active Insurance Policies Plan Name Member ID Group # Subscriber Relationship Effect briana Dates 1 - Medicare Part B [facility] [id number] Pattie Alba Self 07/08/2013 - Unknown 2 - [facility] [id number] Pattie Alba Self 03/10/2019 - Unknown Clinical Notes Includes: Clinical Notes from this encounter No Clinical Notes Recorded
--- OUTSIDE RECORDS SUMMARY | 2024-07-02 10:08 | XMS_ITS ---
Author Organization [facility] , [facility] Address [address] [place] [address] Phone Care Team Providers Care Cargo Services Coordinator Name Role Phone Karley CONTEH, Chava Vaca Unavailable [phone] VEL MEEK MD Primary Care Provider [phone] Reason for Referral Date Encounter Description Provider Reason for Referral 04/06/20 Follow Up Chava peña MD Referral To Physician - for elevated bp 02/23/20 Physician Specified Chava Crandall MD Referral To Physician - for elevated bp Problems Includes: Active, inactive, and resolved Problems All Visits Onset Date Resolved Date Provider Condition S tatus Joint Pain in the Left Knee 02/23/2020 Chava Crandall MD Active Last Documented On 0 1:09PM ; [facility], [facility] Plan of Treatment No Plan of Treatment Recorded Assessments Includes: Assessments for all patient encounters No Assessments Recorded Medical Equipment - Implanted Devices Includes: Current and historical Devices No Medical Equipment Recorded Medications Includes: Current and historical Medications Current Medications (continue as prescribed) B Complex-B12 Oral Tablet 02/23/2020 Provider: Diagnosis: Last Documented On 0 1:28PM By Rosie Morley ; [facility], [facility] Adult Aspirin Regimen 81 MG Oral Tablet Delayed Releas e 02/23/2020 Provider: Diagnosis: Last Documented On 0 1:28PM By Rosie Morley ; [facility], [facility] MegaRed [place]-3 Krill Oil 500 MG Oral Capsule 02/23/20 20 Provider: Diagnosis: Last Documented On 0 1:28PM By Rosie Morley ; [facility], [facility] Ocuvite Adult 50+ Oral Capsule 02/23/2020 Provider: Diagnosis: Last Documented On 0 1:28PM By Rosie Morley ; [facility], [facility] Vascepa 1 GM Oral Capsule 02/23/2020 Provider: Diagnosis: Last Documented On 0 1:27PM By Rosie Morley ; [facility], [facility] Simvastatin 40 MG Oral Tablet 02/23/2020 Provider: Diagnosis: Last Documented On 0 1:27PM By Rosie Morley ; [facility], [facility] Paxil CR 25 MG Oral Tablet Extended Release 24 Hour Provider: Diagnosis: Last Documented On 0 1:27PM By Rosie Morley ; [facility], [facility] Omeprazole 20 MG Oral Tablet Delayed Release 02/22 Provider: Diagnosis: Last Documented On 0 1:27PM By Rosie Morley ; [facility], [facility] Lisinopril-hydroCHLOROthiazide 10-12.5 MG Oral Tablet 02/23/2020 Provider: Diagnosis: Last Documented On 0 1:27PM By Rosie Morley ; [facility], [facility] Janumet 50-1000 MG Oral Tablet 02/23/2020 Provider: Diagnosis: Last Documented On 0 1:26PM By Rosie Morley ; [facility], [facility] buPROPion HCl ER (XL) 300 MG Oral Tablet Extended Release 24 Hour 02/23/2020 Provider: Diagnosis: Last Documented On 0 1:26PM By Rosie Morley ; [facility], [facility] Atenolol 50 MG Oral Tablet 02/23/2020 Provider: Diagnosis: Last Documented On 0 1:26PM By Rosie Morley ; [facility], [facility] amLODIPine Besylate 10 MG Oral Tablet 02/23/2020 Pro vider: Diagnosis: Last Documented On 0 1:26PM By Rosie Morley ; [facility], [facility] Past Medications on file Ultram 50 MG Oral Tablet 07/24/2020 - 07/29/2020 Provider: Chava peña MD Diagnosis: 1-2 po q6h prn pain Last Documented On 1 4:39PM By Shan Crandall ; [facility], [facility] Neurontin 300 MG Oral Capsule 07/06/2020 - 10/04/2020 Provider: Chava peña MD Diagnosis: 1 every bedtime *DO NOT FILL UNTIL 07-07-20 Last Documented On 1 4:40PM By Shan Crandall ; [facility] Ultram 50 MG Oral Tablet 07/06/2020 - 07/11/2020 Provider: Chava peña MD Diagnosis: 1-2 po q6h prn pain *DO NOT FILL UNTIL 07-07-20 Last Documented On 1 4:40PM By Shan Crandall ; [facility] oxyCODONE HCl 5 MG Oral Tablet 07/06/2020 - 07/11/2020 Provider: Chava peña MD Diagnosis: 1-2 po q 4-6h *DO NOT FILL UNTIL 07-07-20 Last Documented On 1 4:40PM By Shan Crandall ; [facility] Ondansetron HCl 4 MG Oral Tablet 07/06/2020 - 07/11/2020 Provider: Chava Crandall MD Diagnosis: [id number] *DO NOT FILL UNTIL 07-07-20 Last Documented On 1 2:32PM By Mally Patel ; [facility] Meloxicam 15 MG Oral Tablet 07/06/2020 - 07/20/2020 Provider: Chava peña MD Diagnosis: once a day *DO NOT FILL UNTIL 07-07-20 Last Documented On 1 2:32PM By Mally Patel ; [facility] Colace 100 MG Oral Capsule 07/06/2020 - 10/04/2020 Provider: Chava peña MD Diagnosis: 1-2 tabs daily *DO NOT FILL UNTIL 07-07-20 Last Documented On 1 2:32PM By Mally Patel ; [facility] Cefadroxil 500 MG Oral Capsule 07/06/2020 - 2020 Provider: Chava peña MD Diagnosis: twice a day *DO NOT FILL UNTIL 07-07-20 Last Documented On 1 2:32PM By Mally Patel ; [facility] Acetaminophen 500 MG Oral Tablet 07/06/2020 - 08/05/2020 Provider: Chava Crandall MD Diagnosis: 2 three times a day *DO NOT FILL UNTIL 07-07-20 Last Documented On 1 2:32PM By Mally Patel ; [facility] Medications Administered Includes: Administered Medications in patient's chart No Administered Medications Recorded Results Includes: Results from 07/03/2023 through 07/02/2024 No Results Recorded For Specified Dates History of Present Illness History of Present Illness not supported for this document type No History of Present Illness Recorded Social History Description Last Updated Non-smoker 02/23/2020 Last Documented On 0 2:21PM ; [facility] Caffeine use 02/23/2020 Last Documented On 0 2:21PM ; [facility] Not a current smoker. 02/23/2020 Last Documented On 0 2:21PM ; [facility] Not exercising regularly 02/23/2020 Last Documented On 0 2:21PM ; [facility] Not using alcohol 02/23/2020 Last Documented On 0 2:21PM ; [facility] Not using drugs 02/23/2020 Last Documented On 0 2:21PM ; [facility] Recent change in diet 02/23/2020 Last Documented On 0 2:21PM ; [facility] Smoking Status Unknown Medical History Includes: Medical History in patient's chart Description Last Updated Use of CPAP 04/06/2020 Last Documented On 1 9:51AM ; [facility] Anemia 02/23/2020 Last Documented On 0 2:21PM ; [facility] Heartburn / Acid Reflux 02/23/2020 Last Documented On 0 2:21PM ; [facility] History of depression 02/23/2020 Last Documented On 0 2:21PM ; [facility] History of diabetes mellitus 02/23/2020 Last Documented On 0 2:21PM ; [facility] History of diverticulitis of colon 02/22 Last Documented On 0 2:21PM ; [facility] History of heart disease 02/23/2020 Last Documented On 0 2:21PM ; [facility] History of Rheumatology 02/23/2020 Last Documented On 0 2:21PM ; [facility] Hypertension 02/23/2020 Last Documented On 0 2:21PM ; [facility] Sleep Apnea 02/23/2020 Last Documented On 0 2:21PM ; [facility] Thyroid Disease 02/23/2020 Last Documented On 0 2:21PM ; [facility] A recent immunization for flu 02/23/2020 Last Documented On 0 2:21PM ; [facility] A recent immunization for pneumococcal p neumonia 02/23/2020 Last Documented On 0 2:21PM ; [facility] History of Arthroscopy 02/23/2020 Last Documented On 0 2:21PM ; [facility] Hysterectomy 02/23/2020 Last Documented On 0 2:21PM ; [facility] Family History Includes: Family History in patient's chart Description Last Updated Diabetes mellitus 02/23/2020 Last Documented On 0 2:21PM ; [facility] Family history of heart disease 02/23/20 20 Last Documented On 0 2:21PM ; [facility] Family history of hypertension 0 Last Documented On 0 2:21PM ; [facility] Stroke / Seizures 02/23/2020 Last Documented On 0 2:21PM ; [facility] Review of Systems Review of Systems not supported for this document type No Review of Systems Recorded Mental Status Description Anxiety Functional Status No Functional Status Recorded Physical Exam Physical Exam not supported for this document type No Physical Exam Recorded Immunizations Includes: Immunizations in patient's chart Vaccine Dose # Date Site Reaction(s) Status Source Influenza 1 03/10/2019 Complete (Reported) Patient Last Documented On 0 1:11PM ; [facility] Influenza 2 12/13/2019 Complete (Reported) Patient Last Documented On 1 12:03PM ; [facility] PCV (Pneumovax 23) 1 03/10/2019 Complete ( Reported) Patient Last Documented On 0 1:11PM ; [facility] PCV (Pneumovax 23) 2 12/13/2019 Complete ( Reported) Patient Last Documented On 1 12:03PM ; [facility] Allergies Includes: Active, inactive, and resolved Allergies Substance Type Reaction Onset Date Resolved Date Statu s Penicillins Allergy 08/01/2021 Active Last Documented On 2 1:49PM ; [facility] Neurontin Allergy hallucinations 07/24/2020 Acti ve Last Documented On 2 1:32PM ; [facility], [facility] Insurance Includes: Active Insurance Policies Plan Name Member ID Group # Subscriber Relationship Effect briana Dates 1 - Medicare Part B [facility] [id number] Pattie Atkinson 07/08/2013 - Unknown 2 - [facility] [id number] Pattie Atkinson 03/10/2019 - Unknown Clinical Notes Includes: Signed Clinical Notes starting from 02/21/2022 No Clinical Notes Recorded
--- OUTSIDE RECORDS SUMMARY | 2024-07-02 10:08 | XMS_ITS | Clinical Summary ---
Author Organization [facility] , [facility] Address [address] [place] [address] Phone Care Team Providers Care Structural Designer Name Role Phone Karley CONTEH, Chava Vaca Unavailable [phone] VEL MEEK MD Primary Care Provider [phone] Reason for Visit and Chief Complaint The Chief Complaint is: left knee pain Problems Includes: Problems addressed during this encounter and other active Problems All Visits Onset Date Resolved Date Provider Condition S tatus Joint Pain in the Left Knee 02/23/2020 Chava Crandall MD Active Last Documented On 0 1:09PM ; [facility] Plan of Treatment Overall the patient is very pleased with her progress, she had some mild concern that she overdid it with the walking and standing, exercise. I described that she is still quite early in her recovery and this is normal. We will plan for follow-up one year postop for x-ray and exam - Last Documented On 09/18/2020 2:12PM ; [facility] Assessments Includes: Assessments from this encounter Findings 3 months status post left TKA - Last Documented On 09/18/2020 2:12PM ; [facility] Medical Equipment - Implanted Devices Includes: Current Devices No Medical Equipment Recorded Medications Includes: Medications discussed during this encounter and other current Medications Current Medications (continue as prescribed) B Complex-B12 Oral Tablet 02/23/2020 Provider: Diagnosis: Last Documented On 0 1:28PM By Rosie Morley ; [facility], [facility] Adult Aspirin Regimen 81 MG Oral Tablet Delayed Releas e 02/23/2020 Provider: Diagnosis: Last Documented On 0 1:28PM By Rosie Morley ; [facility], [facility] MegaRed [place]-3 Krill Oil 500 MG Oral Capsule 02/23/20 20 Provider: Diagnosis: Last Documented On 0 1:28PM By Rosie Morley ; [facility], [facility] Ocuvite Adult 50+ Oral Capsule 02/23/2020 Provider: Diagnosis: Last Documented On 0 1:28PM By Rosie Morley ; [facility], [facility] Vascepa 1 GM Oral Capsule 02/23/2020 Provider: Diagnosis: Last Documented On 0 1:27PM By Rosie Morley ; [facility], [facility] Simvastatin 40 MG Oral Tablet 02/23/2020 Provider: Diagnosis: Last Documented On 0 1:27PM By Rosie Morley ; [facility], [facility] Paxil CR 25 MG Oral Tablet Extended Release 24 Hour Provider: Diagnosis: Last Documented On 0 1:27PM By Rosie Morley ; [facility], [facility] Omeprazole 20 MG Oral Tablet Delayed Release 02/22 Provider: Diagnosis: Last Documented On 0 1:27PM By Rosie Morley ; [facility], [facility] Lisinopril-hydroCHLOROthiazide 10-12.5 MG Oral Tablet 02/23/2020 Provider: Diagnosis: Last Documented On 0 1:27PM By Rosie Morley ; [facility], [facility] Janumet 50-1000 MG Oral Tablet 02/23/2020 Provider: Diagnosis: Last Documented On 0 1:26PM By Rosie Morley ; [facility], [facility] buPROPion HCl ER (XL) 300 MG Oral Tablet Extended Release 24 Hour 02/23/2020 Provider: Diagnosis: Last Documented On 0 1:26PM By Rosie Morley ; [facility], [facility] Atenolol 50 MG Oral Tablet 02/23/2020 Provider: Diagnosis: Last Documented On 0 1:26PM By Rosie Morley ; [facility], [facility] amLODIPine Besylate 10 MG Oral Tablet 02/23/2020 Pro vider: Diagnosis: Last Documented On 0 1:26PM By Rosie Morley ; [facility], [facility] Past Medications on file Ultram 50 MG Oral Tablet 07/24/2020 - 07/29/2020 Provider: Chava peña MD Diagnosis: 1-2 po q6h prn pain Last Documented On 1 4:39PM By Shan Crandall ; [facility] Neurontin 300 MG Oral Capsule 07/06/2020 - 10/04/2020 Provider: Chava peña MD Diagnosis: 1 every bedtime *DO NOT FILL UNTIL 07-07-20 Last Documented On 1 4:40PM By Shan Crandall ; [facility] Ultram 50 MG Oral Tablet 07/06/2020 - 07/11/2020 Provider: Chava peña MD Diagnosis: 1-2 po q6h prn pain *DO NOT FILL UNTIL 07-07-20 Last Documented On 1 4:40PM By Shan Crandall ; [facility] oxyCODONE HCl 5 MG Oral Tablet 07/06/2020 - 07/11/2020 Provider: Chava peña MD Diagnosis: 1-2 po q 4-6h *DO NOT FILL UNTIL 07-07-20 Last Documented On 1 4:40PM By Shan Crandall ; [facility] Ondansetron HCl 4 MG Oral Tablet 07/06/2020 - 07/11/2020 Provider: Chava Crandall MD Diagnosis: [id number] *DO NOT FILL UNTIL 07-07-20 Last Documented On 1 2:32PM By Mally Patel ; [facility] Meloxicam 15 MG Oral Tablet 07/06/2020 - 07/20/2020 Provider: Chava peña MD Diagnosis: once a day *DO NOT FILL UNTIL 07-07-20 Last Documented On 1 2:32PM By Mally Patel ; [facility] Colace 100 MG Oral Capsule 07/06/2020 - 10/04/2020 Provider: Chava peña MD Diagnosis: 1-2 tabs daily *DO NOT FILL UNTIL 07-07-20 Last Documented On 1 2:32PM By Mally Patel ; [facility] Cefadroxil 500 MG Oral Capsule 07/06/2020 - 2020 Provider: Chava peña MD Diagnosis: twice a day *DO NOT FILL UNTIL 07-07-20 Last Documented On 1 2:32PM By Mally Patel ; [facility] Acetaminophen 500 MG Oral Tablet 07/06/2020 - 08/05/2020 Provider: Chava Crandall MD Diagnosis: 2 three times a day *DO NOT FILL UNTIL 07-07-20 Last Documented On 1 2:32PM By Mally Patel ; [facility] Medications Administered Includes: Administered Medications from this encounter No Administered Medications Recorded Vital Signs Includes: Vital Signs from this encounter Vital Name 09/18/2020 11:00A Blood Pressure Sitting (mmHg) 108/62 Pulse Rate-Sitting (bpm) 74 Height (in) 64.5 Weight (lb) 158 Body Mass Index (kg/m2) 26.7 Body Surface Area (m2) 1.8 Note: rj Last Documented: On 09/18/2020 11:19A M ; [facility] Results Includes: Results discussed during this encounter No Results Recorded For Specified Dates History of Present Illness Includes: History of Present Illness from this encounter MUNIR Alba is a 70 year old female. - Allergy list reviewed - Problem list reviewed - Medication reconciliation performed - Medication list reviewed with patient Social History Description Last Updated Non-smoker 02/23/2020 Last Documented On 1 11:00AM ; [facility] Caffeine use 02/23/2020 Last Documented On 1 11:00AM ; [facility] Not a current smoker. 02/23/2020 Last Documented On 1 11:00AM ; [facility] Not exercising regularly 02/23/2020 Last Documented On 1 11:00AM ; [facility] Not using alcohol 02/23/2020 Last Documented On 1 11:00AM ; [facility] Not using drugs 02/23/2020 Last Documented On 1 11:00AM ; [facility] Recent change in diet 02/23/2020 Last Documented On 1 11:00AM ; [facility], [facility] Smoking Status Unknown Procedures and Surgical History Includes: Procedures from this encounter Procedures Code Diagnosis Performing Provider Service L ocation Service Date use of tobacco assessment performed 1000F Last Documented On 1 11:00AM ; [facility] Pt received screening for fall risk G8270 Last Documented On 1 11:00AM ; [facility], [facility] an X-ray was performed 86366 Last Documented On 1 11:00AM ; [facility], [facility] an MRI was performed [id number] Last Documented On 1 11:00AM ; [facility], [facility] Medical History Includes: Medical History addressed during this encounter Description Last Updated Use of CPAP 04/06/2020 Last Documented On 1 11:00AM ; [facility] Anemia 02/23/2020 Last Documented On 1 11:00AM ; [facility] Heartburn / Acid Reflux 02/23/2020 Last Documented On 1 11:00AM ; [facility], [facility] History of depression 02/23/2020 Last Documented On 1 11:00AM ; [facility], [facility] History of diabetes mellitus 02/23/2020 Last Documented On 1 11:00AM ; [facility], [facility] History of diverticulitis of colon 02/22 Last Documented On 1 11:00AM ; [facility], [facility] History of heart disease 02/23/2020 Last Documented On 1 11:00AM ; [facility] History of Rheumatology 02/23/2020 Last Documented On 1 11:00AM ; [facility] Hypertension 02/23/2020 Last Documented On 1 11:00AM ; [facility] Sleep Apnea 02/23/2020 Last Documented On 1 11:00AM ; [facility] Thyroid Disease 02/23/2020 Last Documented On 1 11:00AM ; [facility] A recent immunization for flu 02/23/2020 Last Documented On 1 11:00AM ; [facility] A recent immunization for pneumococcal p neumonia 02/23/2020 Last Documented On 1 11:00AM ; [facility] History of Arthroscopy 02/23/2020 Last Documented On 1 11:00AM ; [facility] Hysterectomy 02/23/2020 Last Documented On 1 11:00AM ; [facility] Family History Includes: Family History addressed during this encounter Description Last Updated Diabetes mellitus 02/23/2020 Last Documented On 1 11:00AM ; [facility] Family history of heart disease 02/23/20 20 Last Documented On 1 11:00AM ; [facility] Family history of hypertension 0 Last Documented On 1 11:00AM ; [facility] Stroke / Seizures 02/23/2020 Last Documented On 1 11:00AM ; [facility] Review of Systems Includes: Review [...] Active Last Documented On 2 1:49PM ; [facility] Neurontin Allergy hallucinations 07/24/2020 Acti ve Last Documented On 2 1:32PM ; [facility], [facility] Encounters Encounter Provider Location Date Check-In Time Check-Out Time Diagnosis Post Op Chava Crandall MD [facility] 09/19/19 21 10:40AM 11:39AM Insurance Includes: Active Insurance Policies Plan Name Member ID Group # Subscriber Relationship Effect briana Dates 1 - Medicare Part B [facility] [id number] Pattie Alba Self 07/08/2013 - Unknown 2 - [facility] [id number] Pattie Atkinson 03/10/2019 - Unknown Clinical Notes Includes: Clinical Notes from this encounter No Clinical Notes Recorded
--- OUTSIDE RECORDS SUMMARY | 2024-07-02 10:08 | XMS_ITS | Clinical Summary ---
Author Organization [facility] Address [address] [place] [address] Phone Care Team Providers Care Wire Sawyer Name Role Phone Karley CONTEH, Chava Vaca Unavailable + [phone] FANTASMA CONTEH, VEL E Primary Care Provider [phone] Reason for Visit and Chief Complaint [Patient Encounter] Problems Includes: Problems addressed during this encounter and other active Problems All Visits Onset Date Resolved Date Provider Condition S tatus Joint Pain in the Left Knee 02/23/2020 Chava Crandall MD Active Last Documented On 0 1:09PM ; [facility], [facility] Plan of Treatment No Plan of Treatment Recorded Assessments Includes: Assessments from this encounter No Assessments Recorded Medical Equipment - Implanted Devices Includes: Current Devices No Medical Equipment Recorded Medications Includes: Medications discussed during this encounter and other current Medications Current Medications (continue as prescribed) B Complex-B12 Oral Tablet 02/23/2020 Provider: Diagnosis: Last Documented On 0 1:28PM By Rosie Morley ; [facility], [facility] Adult Aspirin Regimen 81 MG Oral Tablet Delayed Releas e 02/23/2020 Provider: Diagnosis: Last Documented On 0 1:28PM By Rosie Morley ; [facility], [facility] MegaRed [place]-3 Krill Oil 500 MG Oral Capsule 02/23/20 20 Provider: Diagnosis: Last Documented On 0 1:28PM By Rosie Morley ; [facility], [facility] Ocuvite Adult 50+ Oral Capsule 02/23/2020 Provider: Diagnosis: Last Documented On 0 1:28PM By Rosie Morley ; [facility], [facility] Vascepa 1 GM Oral Capsule 02/23/2020 Provider: Diagnosis: Last Documented On 0 1:27PM By Rosie Morley ; [facility] Simvastatin 40 MG Oral Tablet 02/23/2020 Provider: Diagnosis: Last Documented On 0 1:27PM By Rosie Morley ; [facility], [facility] Paxil CR 25 MG Oral Tablet Extended Release 24 Hour Provider: Diagnosis: Last Documented On 0 1:27PM By Rosie Morley ; [facility] Omeprazole 20 MG Oral Tablet Delayed Release 02/22 Provider: Diagnosis: Last Documented On 0 1:27PM By Rosie Morley ; [facility] Lisinopril-hydroCHLOROthiazide 10-12.5 MG Oral Tablet 02/23/2020 Provider: Diagnosis: Last Documented On 0 1:27PM By Rosie Morley ; [facility] Janumet 50-1000 MG Oral Tablet 02/23/2020 Provider: Diagnosis: Last Documented On 0 1:26PM By Rosie Morley ; [facility] buPROPion HCl ER (XL) 300 MG Oral Tablet Extended Release 24 Hour 02/23/2020 Provider: Diagnosis: Last Documented On 0 1:26PM By Rosie Morley ; [facility] Atenolol 50 MG Oral Tablet 02/23/2020 Provider: Diagnosis: Last Documented On 0 1:26PM By Rosie Morley ; [facility] amLODIPine Besylate 10 MG Oral Tablet 02/23/2020 Pro vider: Diagnosis: Last Documented On 0 1:26PM By Rosie Morley ; [facility] Medications Administered Includes: Administered Medications from this encounter No Administered Medications Recorded Results Includes: Results discussed during this encounter No Results Recorded For Specified Dates History of Present Illness Includes: History of Present Illness from this encounter No History of Present Illness Recorded Social History No Social History Recorded - Smoking Status Unknown Medical History Includes: Medical History addressed during this encounter No Medical History Recorded Family History Includes: Family History addressed during this encounter No Family History Recorded Review of Systems Includes: Review of Systems from this encounter No Review of Systems Recorded Mental Status Includes: Mental Status from this encounter No Mental Status Recorded Functional Status Includes: Functional Status from this encounter No Functional Status Recorded Physical Exam Includes: Physical Exam from this encounter No Physical Exam Recorded Allergies Includes: Active Allergies Substance Type Reaction Onset Date Resolved Date Statu s Penicillins Allergy 08/01/2021 Active Last Documented On 2 1:49PM ; [facility] Neurontin Allergy hallucinations 07/24/2020 Acti ve Last Documented On 2 1:32PM ; [facility] Encounters Encounter Provider Location Date Check-In Time Check-Out Time Diagnosis [Patient Encounter] Chava Crandall MD [facility] 07/15/19 21 8:42AM 11:59PM Insurance Includes: Active Insurance Policies Plan Name Member ID Group # Subscriber Relationship Effect briana Dates 1 - Medicare Part B [facility] [id number] Pattie Atkinson 07/08/2013 - Unknown 2 - [facility] [id number] Pattie Atkinson 03/10/2019 - Unknown Clinical Notes Includes: Clinical Notes from this encounter No Clinical Notes Recorded
--- OUTSIDE RECORDS SUMMARY | 2024-07-02 10:08 | XMS_ITS ---
Care Plan - [facility], [facility] Created on: July 02, 2024 Parth Pattie Rafael : 1950 Sex: Female Author Organization [facility] Address [address] [place] [address] Phone Care Team Providers Care Gear Changer Name Role Phone Karley CONTEH, Chava Vaca Unavailable + [phone] FANTASMA CONTEH, VEL Eugene Primary Care Provider [phone]
--- OUTSIDE RECORDS SUMMARY | 2024-07-02 10:08 | XMS_ITS | Clinical Summary ---
Author Organization [facility] Address [address] [place] [address] Phone Care Team Providers Care Flavoring Machine Operator Name Role Phone Karley CONTEH, Chava Vaca Unavailable [phone] VEL MEEK MD Primary Care Provider [phone] Reason for Visit and Chief Complaint The Chief Complaint is: left knee pain Problems Includes: Problems addressed during this encounter and other active Problems All Visits Onset Date Resolved Date Provider Condition S tatus Joint Pain in the Left Knee 02/23/2020 Chava Crandall MD Active Last Documented On 0 1:09PM ; [facility] Plan of Treatment Fall Risk Assessment: This patient has been identified as a fall risk. Balance/gait along with postural blood pressure, vision and home fall hazards have been assessed. Medications have been reviewed, and recommendations made with regard to contributing factors for future falls. Plan of care: Consideration of vitamin D supplementation along with balance and strength training with consideration for formal physical therapy has been discussed with the patient. - Last Documented On 08/01/2021 2:05PM ; [facility], [facility] Overall the patient is very pleased with her knee surgery, she has no complaints today. We will plan for follow-up 5 year postop intervals. - Last Documented On 08/01/2021 2:05PM ; [facility], [facility] Assessments Includes: Assessments from this encounter Findings One year status post left TKA - Last Documented On 08/01/2021 2:05PM ; [facility], [facility] Medical Equipment - Implanted Devices Includes: Current Devices No Medical Equipment Recorded Medications Includes: Medications discussed during this encounter and other current Medications Current Medications (continue as prescribed) B Complex-B12 Oral Tablet 02/23/2020 Provider: Diagnosis: Last Documented On 0 1:28PM By Rosie Morley ; [facility], [facility] Adult Aspirin Regimen 81 MG Oral Tablet Delayed Releas e 02/23/2020 Provider: Diagnosis: Last Documented On 0 1:28PM By Rosie Morley ; [facility], [facility] MegaRed [place]-3 Krill Oil 500 MG Oral Capsule 02/23/20 20 Provider: Diagnosis: Last Documented On 0 1:28PM By Rosie Morley ; [facility], [facility] Ocuvite Adult 50+ Oral Capsule 02/23/2020 Provider: Diagnosis: Last Documented On 0 1:28PM By Rosie Morley ; [facility], [facility] Vascepa 1 GM Oral Capsule 02/23/2020 Provider: Diagnosis: Last Documented On 0 1:27PM By Rosie Morley ; [facility], [facility] Simvastatin 40 MG Oral Tablet 02/23/2020 Provider: Diagnosis: Last Documented On 0 1:27PM By Rosie Morley ; [facility], [facility] Paxil CR 25 MG Oral Tablet Extended Release 24 Hour Provider: Diagnosis: Last Documented On 0 1:27PM By Rosie Morley ; [facility], [facility] Omeprazole 20 MG Oral Tablet Delayed Release 02/22 Provider: Diagnosis: Last Documented On 0 1:27PM By Rosie Morley ; [facility], [facility] Lisinopril-hydroCHLOROthiazide 10-12.5 MG Oral Tablet 02/23/2020 Provider: Diagnosis: Last Documented On 0 1:27PM By Rosie Morley ; [facility], [facility] Janumet 50-1000 MG Oral Tablet 02/23/2020 Provider: Diagnosis: Last Documented On 0 1:26PM By Rosie Morley ; [facility], [facility] buPROPion HCl ER (XL) 300 MG Oral Tablet Extended Release 24 Hour 02/23/2020 Provider: Diagnosis: Last Documented On 0 1:26PM By Rosie Morley ; [facility], [facility] Atenolol 50 MG Oral Tablet 02/23/2020 Provider: Diagnosis: Last Documented On 0 1:26PM By Rosie Morley ; [facility], [facility] amLODIPine Besylate 10 MG Oral Tablet 02/23/2020 Pro vider: Diagnosis: Last Documented On 0 1:26PM By Rosie Morley ; [facility] Past Medications on file Ultram 50 MG Oral Tablet 07/24/2020 - 07/29/2020 Provider: Chava peña MD Diagnosis: 1-2 po q6h prn pain Last Documented On 1 4:39PM By Shan Crandall ; [facility], [facility] Neurontin 300 MG Oral Capsule 07/06/2020 - 10/04/2020 Provider: Chava peña MD Diagnosis: 1 every bedtime *DO NOT FILL UNTIL 07-07-20 Last Documented On 1 4:40PM By Shan Crandall ; [facility], [facility] Ultram 50 MG Oral Tablet 07/06/2020 - 07/11/2020 Provider: Chava peña MD Diagnosis: 1-2 po q6h prn pain *DO NOT FILL UNTIL 07-07-20 Last Documented On 1 4:40PM By Shan Crandall ; [facility], [facility] oxyCODONE HCl 5 MG Oral Tablet 07/06/2020 - 07/11/2020 Provider: Chava peña MD Diagnosis: 1-2 po q 4-6h *DO NOT FILL UNTIL 07-07-20 Last Documented On 1 4:40PM By Shan Crandall ; [facility], [facility] Ondansetron HCl 4 MG Oral Tablet 07/06/2020 - 07/11/2020 Provider: Chava Crandall MD Diagnosis: [id number] *DO NOT FILL UNTIL 07-07-20 Last Documented On 1 2:32PM By Mally Patel ; [facility] Meloxicam 15 MG Oral Tablet 07/06/2020 - 07/20/2020 Provider: Chava peña MD Diagnosis: once a day *DO NOT FILL UNTIL 07-07-20 Last Documented On 1 2:32PM By Mally Patel ; [facility] Colace 100 MG Oral Capsule 07/06/2020 - 10/04/2020 Provider: Chava peña MD Diagnosis: 1-2 tabs daily *DO NOT FILL UNTIL 07-07-20 Last Documented On 1 2:32PM By Mally Patel ; [facility] Cefadroxil 500 MG Oral Capsule 07/06/2020 - 2020 Provider: Chava peña MD Diagnosis: twice a day *DO NOT FILL UNTIL 07-07-20 Last Documented On 1 2:32PM By Mally Patel ; [facility] Acetaminophen 500 MG Oral Tablet 07/06/2020 - 08/05/2020 Provider: Chava Crandall MD Diagnosis: 2 three times a day *DO NOT FILL UNTIL 07-07-20 Last Documented On 1 2:32PM By Mally Patel ; [facility] Medications Administered Includes: Administered Medications from this encounter No Administered Medications Recorded Vital Signs Includes: Vital Signs from this encounter Vital Name 08/01/2021 01:49P Blood Pressure Sitting (mmHg) 122/87 Pulse Rate-Sitting (bpm) 68 Height (in) 64.5 Weight (lb) 158 Body Mass Index (kg/m2) 26.7 Body Surface Area (m2) 1.8 Note: ab Last Documented: On 08/01/2021 1:50PM ; [facility], [facility] Results Includes: Results discussed during this encounter No Results Recorded For Specified Dates History of Present Illness Includes: History of Present Illness from this encounter MUNIR Alba is a 71 year old female. - Allergy list reviewed - Problem list reviewed - Medication reconciliation performed - Medication list reviewed - Medication list reviewed with patient Social History Description Last Updated Non-smoker 02/23/2020 Last Documented On 2 1:32PM ; [facility] Caffeine use 02/23/2020 Last Documented On 2 1:32PM ; [facility] Not a current smoker. 02/23/2020 Last Documented On 2 1:32PM ; [facility] Not exercising regularly 02/23/2020 Last Documented On 2 1:32PM ; [facility] Not using alcohol 02/23/2020 Last Documented On 2 1:32PM ; [facility] Not using drugs 02/23/2020 Last Documented On 2 1:32PM ; [facility] Recent change in diet 02/23/2020 Last Documented On 2 1:32PM ; [facility] Smoking Status Unknown Procedures and Surgical History Includes: Procedures from this encounter Procedures Code Diagnosis Performing Provider Service L ocation Service Date use of tobacco assessment performed 1000F Last Documented On 2 1:32PM ; [facility] patient screened for future fall risk 3288F Last Documented On 2 1:33PM ; [facility] Pt received screening for fall risk G8270 Last Documented On 2 1:32PM ; [facility] Medical History Includes: Medical History addressed during this encounter Description Last Updated Use of CPAP 04/06/2020 Last Documented On 2 1:32PM ; [facility] Anemia 02/23/2020 Last Documented On 2 1:32PM ; [facility] Heartburn / Acid Reflux 02/23/2020 Last Documented On 2 1:32PM ; [facility] History of depression 02/23/2020 Last Documented On 2 1:32PM ; [facility] History of diabetes mellitus 02/23/2020 Last Documented On 2 1:32PM ; [facility] History of diverticulitis of colon 02/22 Last Documented On 2 1:32PM ; [facility] History of heart disease 02/23/2020 Last Documented On 2 1:32PM ; [facility] History of Rheumatology 02/23/2020 Last Documented On 2 1:32PM ; [facility] Hypertension 02/23/2020 Last Documented On 2 1:32PM ; [facility] Sleep Apnea 02/23/2020 Last Documented On 2 1:32PM ; [facility] Thyroid Disease 02/23/2020 Last Documented On 2 1:32PM ; [facility] A recent immunization for flu 02/23/2020 Last Documented On 2 1:32PM ; [facility] A recent immunization for pneumococcal p neumonia 02/23/2020 Last Documented On 2 1:32PM ; [facility] History of Arthroscopy 02/23/2020 Last Documented On 2 1:32PM ; [facility] Hysterectomy 02/23/2020 Last Documented On 2 1:32PM ; [facility] Family History Includes: Family History addressed during this encounter Description Last Updated Diabetes mellitus 02/23/2020 Last Documented On 2 1:32PM ; [facility] Family history of heart disease 02/23/20 20 Last Documented On 2 1:32PM ; [facility] Family history of hypertension 0 Last Documented On 2 1:32PM ; [facility] Stroke / Seizures 02/23/2020 Last Documented On 2 1:32PM ; [facility] Review of Systems Includes: Review of [...] and Immunologic: Complaint of seasonal allergic reaction. reviewed 08-01-21 Mental Status Includes: Mental Status from this encounter Description Anxiety Functional Status Includes: Functional Status from this encounter No Functional Status Recorded Physical Exam Includes: Physical Exam from this encounter Allergies Includes: Active Allergies Substance Type Reaction Onset Date Resolved Date Statu s Penicillins Allergy 08/01/2021 Active Last Documented On 2 1:49PM ; [facility] Neurontin Allergy hallucinations 07/24/2020 Acti ve Last Documented On 2 1:32PM ; [facility] Encounters Encounter Provider Location Date Check-In Time Check- Out Time Diagnosis Follow Up Iban Stone PA-C [facility] 2 1:37PM 2:08PM Insurance Includes: Active Insurance Policies Plan Name Member ID Group # Subscriber Relationship Effect briana Dates 1 - Medicare Part B [facility] [id number] Pattie Alba Self 07/08/2013 - Unknown 2 - [facility] [id number] Pattie Alba Self 03/10/2019 - Unknown Clinical Notes Includes: Clinical Notes from this encounter No Clinical Notes Recorded
--- OUTSIDE RECORDS SUMMARY | 2024-07-02 10:08 | XMS_ITS ---
Author Organization Unknown TREATMENT PLAN Planned [facility] Start Date Provider Encounter for Check-up [id number] [facility]
--- OUTSIDE RECORDS SUMMARY | 2024-07-02 10:08 | XMS_ITS | Clinical Summary ---
Author Organization [facility] Address [address] [place] [address] Phone Care Team Providers Care Chairman And Chief Executive Officer Name Role Phone Karley CONTEH, Chava Vaca Unavailable [phone] FANTASMA CONTEH, VEL Eugene Primary Care Provider [phone] Reason for Visit and Chief Complaint The Chief Complaint is: left knee pain Problems Includes: Problems addressed during this encounter and other active Problems All Visits Onset Date Resolved Date Provider Condition S tatus Joint Pain in the Left Knee 02/23/2020 Chava Crandall MD Active Last Documented On 0 1:09PM ; [facility] Plan of Treatment Overall the patient is pleased with her progress, continues to participate diligently in physical therapy. I encouraged her to continue resting with heel supported, prones daily. plan for follow-up 4 weeks - Last Documented On 08/21/2020 2:27PM ; [facility] Assessments Includes: Assessments from this encounter Findings 7 weeks status post left TKA - Last Documented On 08/21/2020 2:27PM ; [facility] Medical Equipment - Implanted Devices Includes: Current Devices No Medical Equipment Recorded Medications Includes: Medications discussed during this encounter and other current Medications Current Medications (continue as prescribed) B Complex-B12 Oral Tablet 02/23/2020 Provider: Diagnosis: Last Documented On 0 1:28PM By Rosie Morley ; [facility] Adult Aspirin Regimen 81 MG Oral Tablet Delayed Releas e 02/23/2020 Provider: Diagnosis: Last Documented On 0 1:28PM By Rosie Morley ; [facility] MegaRed Ewing-3 Krill Oil 500 MG Oral Capsule 02/23/20 20 Provider: Diagnosis: Last Documented On 0 1:28PM By Rosie Morley ; [facility] Ocuvite Adult 50+ Oral Capsule 02/23/2020 Provider: Diagnosis: Last Documented On 0 1:28PM By Rosie Morley ; [facility] Vascepa 1 GM Oral Capsule 02/23/2020 Provider: Diagnosis: Last Documented On 0 1:27PM By Rosie Morley ; [facility] Simvastatin 40 MG Oral Tablet 02/23/2020 Provider: Diagnosis: Last Documented On 0 1:27PM By Rosie Morley ; [facility] Paxil CR 25 MG Oral Tablet Extended Release 24 Hour Provider: Diagnosis: Last Documented On 0 1:27PM By Rosie Morley ; [facility] Omeprazole 20 MG Oral Tablet Delayed Release 02/22 Provider: Diagnosis: Last Documented On 0 1:27PM By Rosie Morley ; [facility] Lisinopril-hydroCHLOROthiazide 10-12.5 MG Oral Tablet 02/23/2020 Provider: Diagnosis: Last Documented On 0 1:27PM By Rosie Morley ; [facility] Janumet 50-1000 MG Oral Tablet 02/23/2020 Provider: Diagnosis: Last Documented On 0 1:26PM By Rosie Morley ; [facility] buPROPion HCl ER (XL) 300 MG Oral Tablet Extended Release 24 Hour 02/23/2020 Provider: Diagnosis: Last Documented On 0 1:26PM By Rosie Morley ; [facility] Atenolol 50 MG Oral Tablet 02/23/2020 Provider: Diagnosis: Last Documented On 0 1:26PM By Rosie Morley ; [facility] amLODIPine Besylate 10 MG Oral Tablet 02/23/2020 Pro vider: Diagnosis: Last Documented On 0 1:26PM By Rosie Morley ; [facility] Past Medications on file Ultram 50 MG Oral Tablet 07/24/2020 - 07/29/2020 Provider: Chava peña MD Diagnosis: 1-2 po q6h prn pain Last Documented On 1 4:39PM By Shan Crandall ; [facility] Neurontin 300 MG Oral Capsule 07/06/2020 - 10/04/2020 Provider: Chaav peña MD Diagnosis: 1 every bedtime *DO NOT FILL UNTIL 07-07-20 Last Documented On 1 4:40PM By Shan Crandall ; [facility] Ultram 50 MG Oral Tablet 07/06/2020 - 07/11/2020 Provider: Chava peña MD Diagnosis: 1-2 po q6h prn pain *DO NOT FILL UNTIL 07-07-20 Last Documented On 1 4:40PM By Shan Crandall ; [facility] oxyCODONE HCl 5 MG Oral Tablet 07/06/2020 - 07/11/2020 Provider: Chava peña MD Diagnosis: 1-2 po q 4-6h *DO NOT FILL UNTIL 07-07-20 Last Documented On 1 4:40PM By Shan Crandall ; [facility] Ondansetron HCl 4 MG Oral Tablet 07/06/2020 - 07/11/2020 Provider: Chava Crandall MD Diagnosis: 8igs2-4a *DO NOT FILL UNTIL 07-07-20 Last Documented On 1 2:32PM By Mally Patel ; [facility] Meloxicam 15 MG Oral Tablet 07/06/2020 - 07/20/2020 Provider: Chava peña MD Diagnosis: once a day *DO NOT FILL UNTIL 07-07-20 Last Documented On 1 2:32PM By Mally Patel ; [facility] Colace 100 MG Oral Capsule 07/06/2020 - 10/04/2020 Provider: Chava peña MD Diagnosis: 1-2 tabs daily *DO NOT FILL UNTIL 07-07-20 Last Documented On 1 2:32PM By Mally Patel ; [facility] Cefadroxil 500 MG Oral [...] Vital Signs from this encounter Vital Name 08/21/2020 07:54A Blood Pressure Sitting (mmHg) 115/70 Pulse Rate-Sitting (bpm) 62 Height (in) 64.5 Weight (lb) 158 Body Mass Index (kg/m2) 26.7 Body Surface Area (m2) 1.8 Note: rj Last Documented: On 08/21/2020 8:01AM ; [facility] Results Includes: Results discussed during [...] Updated Non-smoker 02/23/2020 Last Documented On 1 7:52AM ; [facility] Caffeine use 02/23/2020 Last Documented On 1 7:52AM ; [facility] Not a current smoker. 02/23/2020 Last Documented On 1 7:52AM ; [facility] Not exercising regularly 02/23/2020 Last Documented On 1 7:52AM ; [facility] Not using alcohol 02/23/2020 Last Documented On 1 7:52AM ; [facility] Not using drugs 02/23/2020 Last Documented On 1 7:52AM ; [facility] Recent change in diet 02/23/2020 Last Documented On 1 7:52AM ; [facility] Smoking Status Unknown Procedures and Surgical History Includes: Procedures from this encounter Procedures Code Diagnosis Performing Provider Service L ocation Service Date use of tobacco assessment performed 1000F Last Documented On 1 7:54AM ; [facility] Pt received screening for fall risk G8270 Last Documented On 1 7:54AM ; [facility] an X-ray was performed 58474 Last Documented On 1 7:54AM ; [facility] an MRI was performed [id number] Last Documented On 1 7:54AM ; [facility] Medical History Includes: Medical History addressed during this encounter Description Last Updated Use of CPAP 04/06/2020 Last Documented On 1 7:52AM ; [facility] Anemia 02/23/2020 Last Documented On 1 7:52AM ; [facility] Heartburn / Acid Reflux 02/23/2020 Last Documented On 1 7:52AM ; [facility] History of depression 02/23/2020 Last Documented On 1 7:52AM ; [facility] History of diabetes mellitus 02/23/2020 Last Documented On 1 7:52AM ; [facility] History of diverticulitis of colon 02/22 Last Documented On 1 7:52AM ; [facility] History of heart disease 02/23/2020 Last Documented On 1 7:52AM ; [facility] History of Rheumatology 02/23/2020 Last Documented On 1 7:52AM ; [facility] Hypertension 02/23/2020 Last Documented On 1 7:52AM ; [facility] Sleep Apnea 02/23/2020 Last Documented On 1 7:52AM ; [facility] Thyroid Disease 02/23/2020 Last Documented On 1 7:52AM ; [facility] A recent immunization for flu 02/23/2020 Last Documented On 1 7:52AM ; [facility] A recent immunization for pneumococcal p neumonia 02/23/2020 Last Documented On 1 7:52AM ; [facility] History of Arthroscopy 02/23/2020 Last Documented On 1 7:52AM ; [facility] Hysterectomy 02/23/2020 Last Documented On 1 7:52AM ; [facility] Family History Includes: Family History addressed during this encounter Description Last Updated Diabetes mellitus 02/23/2020 Last Documented On 1 7:52AM ; [facility] Family history of heart disease 02/23/20 20 Last Documented On 1 7:52AM ; [facility] Family history of hypertension 0 Last Documented On 1 7:52AM ; [facility] Stroke / Seizures 02/23/2020 Last Documented On 1 7:52AM ; [facility] Review of Systems Includes: Review of [...] Active Last Documented On 2 1:49PM ; [facility] Neurontin Allergy hallucinations 07/24/2020 Acti ve Last Documented On 2 1:32PM ; [facility] Encounters Encounter Provider Location Date Check-In Time Check-Out Time Diagnosis Post Op Chava Crandall MD [facility] 08/22/19 21 7:48AM 8:25AM Insurance Includes: Active Insurance Policies Plan Name Member ID Group # Subscriber Relationship Effect briana Dates 1 - Medicare Part B [facility] [id number] Pattie Alba Self 07/08/2013 - Unknown 2 - [facility] [id number] Pattie Alba Self 03/10/2019 - Unknown Clinical Notes Includes: Clinical Notes from this encounter No Clinical Notes Recorded
== END 2024-07-01 23:59 | disposition home or self-care (01) ==
LOC: LAB.DROPOF 07-02 10:06
PROVIDERS: PCP Internal Medicine; Visit Provider Internal Medicine
DX: E78.5 Hyperlipidemia, unspecified (principal); E11.42 Type 2 diabetes mellitus with diabetic polyneuropathy; E11.59 Type 2 diabetes mellitus with other circulatory complications; I10 Essential (primary) hypertension; E83.42 Hypomagnesemia
CPT/HCPCS: 80053; 80061; 82043; 82570; 83036; 83735

== ENCOUNTER 2024-10-04 10:15 | Outpatient (CLI) | payer MEDICARE, BC, SELFPAY ==
[2024-10-04 14:08] LABS: Hemoglobin A1C 5.5 % (4.0-6.0)
[2024-10-04 14:34] LABS: Magnesium 1.6 mg/dl (1.6-2.3)
--- OUTSIDE RECORDS SUMMARY | 2024-10-05 15:28 | XMS_ITS | Encounter Summary ---
Author Organization [employer] ([place], [place], [place], [place]) Address [address] [place] [address] Care Team Providers Care Enhanced Environmental Operator Name Role Phone Unavailable Primary Care Provider Unavailabl e Encounter Details Date Type Department Care Team (Late st Contact Info) Description 07/02/2018 Transcribed Document [facility] Family Medicine [address] [place] [address] ProviderOsiris MD [address] [place] [address] Social History Tobacco Use Types Packs/Day Years Used Date Smoking Tobacco: Never Assessed Comments Unknown Sex and Gender Information Value Date Recorded Sex Assigned at Female 09/04/2021 8:29 PM CDT Legal Sex Female 8:29 PM CDT Gender Identity Female 09/04/2021 8:29 PM CDT Sexual Orientation Not on file documented as of this encounter Miscellaneous Notes * [employer]ner Conversion Note - Historical ProviderMD - 07/02/2018 7:25 AM CDT [facility] Main OR PostOp Summary Primary Physician: ROSSI JULIAN MD Finalized Date/Time: 07/02/18 11:16:41 Pt. Name: PATTIE ALBA /Sex: 1950 Female Med Rec #: [id number] Physician: ROSSI JULIAN MD Financial #: [id number] Pt. Type: O Room/Bed: [facility]/ Admit/Disch: 07/02/18 04:56:00 - Institution: [facility] Main OR PostOp Case Times Entry 1 In PACU II 07/02/18 10:35:00 Ready for PACU II 07/02/18 11:14:00 Discharge Discharge from PACU 07/02/18 11:14:00 II Last Modified By: Lela Rene Rn 07/02/18 11:16:40 [facility] Main OR PostOp Case Times Audit 07/02/18 11:16:40 Engine Research Engineer: BORA Modifier: MARIYASTELLA <+> 1 Ready for PACU II Discharge <+> 1 Discharge from PACU II Finalized By: Lela Rene, Rn Document Signatures Signed By: Lela Rene Rn 07/02/18 11:16 Electronically signed by [facility] Conversion Floor Representative Cerner at 06/26/2022 11:21 AM CDT documented in this encounter Plan of Treatment Not on file documented as of this encounter Visit Diagnoses Not on filedocumented in this encounter
--- OUTSIDE RECORDS SUMMARY | 2024-10-05 15:28 | XMS_ITS | Encounter Summary ---
Author Organization [employer] ([place], [place], [place], [place]) Address [address] [place] [address] Care Team Providers Care Electronic Warfare Specialist Name Role Phone Unavailable Primary Care Provider Unavailabl e Encounter Details Date Type Department Care Team (Late st Contact Info) Description 06/19/2018 Transcribed Document [facility] Family Medicine [address] [place] [address] ProviderOsiris MD [address] [place] [address] Social History Tobacco Use Types [...] Cerner Conversion Note - Historical ProviderMD - 06/19/2018 2:20 PM CDT PAT Adult Entered On: 06/19/2018 14:24 EDT Performed On: 06/19/2018 14:20 EDT by LEWIS MARTINEZ RN Vital Measurements Temperature Source : Temporal artery scanning Temperature Mode : Fahrenheit Temperature, Fahrenheit : 98.5 Deg F Clinical Temperature, C : 36.9 Deg C Peripheral Pulse Rate : 70 bpm Respiratory Rate : 16 Breaths/Min Systolic Blood Pressure : 134 mmHg Diastolic Blood Pressure : 92 mmHg (HI) Oxygen Saturation : 95 % Oxygen Therapy Mode : Room air LEWIS MARTINEZ RN - 06/19/2018 14:37 EDT Height and Weight, Clinical Dosing Height Source : Stated Height Entry Format : Crawford Height, Feet : 5 ft(Converted to: 152 cm, 60 Inch) Height, Inches : 4.6 Inch(Converted to: 0 ft 5 Inch, 11.68 cm) Clinical Height : 164.08 cm Weight Source : Standing scale Weight Entry Format : Crawford Clinical Dosing Weight : 72.73 kg Weight, Pounds : 160 lb Body Surface Area (BSA) : 1.79 m2 Body Mass Index : 27 kg/m2 (HI) [place] Body Weight : 56 kg LEWIS MARTINEZ RN - 06/19/2018 14:20 EDT Health Histories Smoking Status : Former smoker, quit more than 30 days ago Smokeless Tobacco Status : Never LEWIS MARTINEZ RN - 06/19/2018 14:20 EDT Social History (As Of: 06/19/2018 14:24:08 EDT) Tobacco: Former smoker, quit more than 30 days ago Smoking Status. Comments: 06/19/2018 14:18 - LEWIS MARTINEZ RN: quit 35 years ago (Last Updated: 06/19/2018 14:18:33 EDT by LEWIS MARTINEZ RN) Alcohol: Alcohol Use History No. (Last Updated: 06/19/2018 14:18:33 EDT by LEWIS MARTINEZ RN) Substance Abuse: Drug Use Hx: No. (Last Updated: 06/19/2018 14:18:33 EDT by LEWIS MARTINEZ RN) Infectious Disease History Infectious Disease History : Chicken pox/Shingles, Influenza, Measles Fever/Chills Last 48 Hours : No Travel To Regions with Travel Advisories : No Travel Outside [place] Within Last 30 Days : No Contact With Traveler to Advisory Region : No Tuberculosis Symptoms : None LEWIS MARTINEZ RN - 06/19/2018 14:20 EDT Anesthesia/Transfusion History Family History of Anesthesia Reaction : No prior transfusion(s) Transfusion History : Prior anesthesia without reaction Family History of Anesthesia Reaction : None LEWIS MARTINEZ RN - 06/19/2018 14:20 EDT Functional Assessment Functional ADL Evaluation Index EBN Bathing : Independent (2) Dressing : Independent (2) Toileting : Independent (2) Transferring Bed or Chair : Independent (2) Continence : Independent (2) Feeding : Independent (2) LEWIS MARTINEZ RN - 06/19/2018 14:20 EDT ADL Index Score : 12 LEWIS MARTINEZ RN - 06/19/2018 14:20 EDT Advance Directive Patient has Advance Directive *Q : No, patient refuses Advance Directive information LEWIS MARTINEZ RN - 06/19/2018 14:20 EDT Psychosocial History Do You Have a History of the Following? : Anxiety, Depression Currently in Unsafe Situation : No Tried to Harm Yourself in the Past? : No Thoughts of Harming/Killing Yourself : No LEWIS MARTINEZ RN - 06/19/2018 14:20 EDT Teaching/Learning Assessment Barriers To Learning : None evident Individuals Taught : Patient Readiness to Learn : Cooperative LEWIS MARTINEZ RN - 06/19/2018 14:20 EDT Education Topics, Periop Preadmission Perioperative Education Grid Arrival Time/Place : Verbalizes understanding Infection Control : Verbalizes understanding NPO Status/Directions : Verbalizes understanding Preprocedure Tests/Labs : Verbalizes understanding Remove Body Piercings : Verbalizes understanding Responsible Adult : Verbalizes understanding Take/Hold Medications Pre-Procedure : Verbalizes understanding LEWIS MARTINEZ RN - 06/19/2018 14:20 EDT General Info Want Family/Rep/Phys Notified of Admit : No Emergency Contact #1 : [place] Emergency Contact #1 Emergency Contact #1 Relationship : spouse Emergency Contact #2 : - Emergency Contact #2 Phone Number : - Emergency Contact #2 Relationship : - Primary Language : German Communication Barrier : None LEWIS MARTINEZ RN - 06/19/2018 14:20 EDT Brian Scale Brian Sensory Perception : No impairment Brian Moisture : Rarely moist Brian Activity : Walks frequently Brian Mobility : No limitation Brian Nutrition : Adequate Brian Friction and Shear : No apparent problem Brian Score : 22 LEWIS MARTINEZ RN - 06/19/2018 14:20 EDT Sleep Apnea Risk Assmt Hx of Obstructive Sleep Apnea Diagnosis : No Snore Loudly : No Tired, Fatigued, or Sleepy During Day : No Observed Stopping Breathing During Sleep : No Have/Are Being Treated for Hypertension : Yes BMI Greater Than 35 kg/m2 : No Age over 50 Years Old : Yes Neck Circumference Greater Than 40 cm : No Gender Male : No STOP-BANG Sleep Apnea Risk Level Score : 2 LEWIS MARTINEZ RN - 06/19/2018 14:20 EDT documented in this encounter Plan of Treatment Not on file documented as of this encounter Visit Diagnoses Not on filedocumented in this encounter
--- OUTSIDE RECORDS SUMMARY | 2024-10-05 15:28 | XMS_ITS | Encounter Summary ---
Author Organization [employer] ([place], [place], [place], [place]) Address [address] [place] [address] Care Team Providers Care Landscape Photographer Name Role Phone Unavailable Primary Care Provider Unavailabl e Encounter Details Date Type Department Care Team (Late st Contact Info) Description 07/02/2018 Transcribed Document [facility] [place] [facility] [address] [place] [address] ProviderOsiris MD [facility] [place] [address] Social History Tobacco Use Types Packs/Day Years Used Date Smoking Tobacco: Never Assessed Comments Unknown Sex and Gender Information Value Date Recorded Sex Assigned at Female 09/04/2021 8:29 PM CDT Legal Sex Female 8:29 PM CDT Gender Identity Female 09/04/2021 8:29 PM CDT Sexual Orientation Not on file documented as of this encounter Miscellaneous Notes * Cerner Conversion Note - Osiris ProviderMD - 07/02/2018 7:25 AM CDT [place] [facility] IntraOp Summary Primary Physician: ROSSI JULIAN MD Finalized Date/Time: 07/07/18 13:03:04 Pt. Name: PATTIE ALBA /Sex: 1950 Female Med Rec #: [id number] Physician: ROSSI JULIAN MD Financial #: [id number] Pt. Type: O Room/Bed: Admit/Disch: 07/02/18 04:56:00 - 07/02/18 11:14:00 Institution: [facility] IntraOp Case Attendance Entry 1 Entry 2 Entry 3 Case Attendee JULIAN, ROSSI, MD Little, Grady E, MD MARK, ELIZABETH, NA Role Performed Surgeon/Proceduralist, Anesthesiologist DIRECTOR PRODUCT/Nurse Motor And Controls Tester First Time In 07/02/18 07:10:00 07/02/18 07:10:00 07/02/18 07:28:00 Time Out 07/02/18 09:36:00 07/02/18 07:31:00 07/02/18 09:36:00 Procedure Submandibular Gland Submandibular Gland Submandibular Gland Excision Excision Excision Other Attendee Superficial Wound Closed By: Last Modified By: Russel Lauren RN Cutwright, Shawsta, RN Cutwright, Shawsta, RN 07/02/18 09:36:35 07/02/18 09:36:35 07/02/18 09:36:35 Entry 4 Entry 5 Entry 6 Case Attendee RICARDO CLANCY MD-Concetta Rosa, Surgical Phillip, Bel Ferraro Rn Caretaker Cert Role Performed Surgeon/Proceduralist, Scrub, First Sugar Sampler, Second Second Time In 07/02/18 07:10:00 07/02/18 07:10:00 07/02/18 07:10:00 Time Out 07/02/18 09:36:00 07/02/18 09:36:00 07/02/18 09:36:00 Procedure Submandibular Gland Submandibular Gland Submandibular Gland Excision Excision Excision Other Attendee Superficial Wound Closed By: Last Modified By: Russel Lauren RN Cutwright, Shawsta, RN Cutwright, Shawsta, RN 07/02/18 09:36:35 07/02/18 09:36:35 07/02/18 09:36:35 Entry 7 Entry 8 Case Attendee Russel Lauren RN HARRIMAN, KELLY, NA Role Performed Sugar Sampler, First DIRECTOR PRODUCT/Nurse Motor And Controls Tester Time In 07/02/18 07:10:00 07/02/18 08:51:00 Time Out 07/02/18 09:36:00 07/02/18 09:04:00 Procedure Submandibular Gland Submandibular Gland Excision Excision Other Attendee Superficial Wound Closed By: Last Modified By: Russel Lauren RN Cutwright, Shawsta, RN 07/02/18 09:36:35 07/02/18 09:37:21 [facility] IntraOp Case Attendance Audit 07/02/18 09:37:21 Pack Puller: [email or web address] Modifier: [email or web address] 8 <+> Case Attendee 8 <*> Procedure Submandibular Gland Excision 07/02/18 09:36:35 Pack Puller: [email or web address] Modifier: [email or web address] 1 <+> Time Out 1 <*> Procedure Submandibular Gland Excision 2 <*> Procedure Submandibular Gland Excision 3 <+> Time Out 3 <*> Procedure Submandibular Gland Excision 4 <+> Time Out 4 <*> Procedure Submandibular Gland Excision 5 <+> Time Out 5 <*> Procedure Submandibular Gland Excision 6 <+> Time Out 6 <*> Procedure Submandibular Gland Excision 7 <+> Time Out 7 <*> Procedure Submandibular Gland Excision 8 <*> Procedure Submandibular Gland Excision 07/02/18 09:05:29 Pack Puller: [email or web address] Modifier: [email or web address] <+> 8 Role Performed <+> 8 Time In <+> 8 Time Out <+> 8 Procedure 07/02/18 08:03:43 Pack Puller: [email or web address] Modifier: [email or web address] 1 <*> Procedure Submandibular Gland Excision 2 <*> Procedure Submandibular Gland Excision 3 <*> Procedure Submandibular Gland Excision 4 <*> Procedure Submandibular Gland Excision 5 <*> Procedure Submandibular Gland Excision 6 <*> Procedure Submandibular Gland Excision 7 <+> Time In 7 <*> Procedure Submandibular Gland Excision 07/02/18 08:03:16 Pack Puller: [email or web address] Modifier: [email or web address] <+> 7 Case Attendee <+> 7 Role Performed <+> 7 Procedure 07/02/18 07:57:34 Pack Puller: [email or web address] Modifier: [email or web address] <+> 1 Procedure 2 <*> Procedure Submandibular Gland Excision 3 <*> Procedure Submandibular Gland Excision 4 <+> Time In 4 <*> Procedure Submandibular Gland Excision 5 <+> Time In 5 <*> Procedure Submandibular Gland Excision 6 <+> Time In 6 <*> Procedure Submandibular Gland Excision 07/02/18 07:45:17 Pack Puller: [email or web address] Modifier: [email or web address] <+> 4 Case Attendee <+> 4 Role Performed <+> 4 Procedure <+> 5 Case Attendee <+> 5 Role Performed <+> 5 Procedure <+> 6 Case Attendee <+> 6 Role Performed <+> 6 Procedure 07/02/18 07:41:21 Pack Puller: [email or web address] Modifier: [email or web address] <+> 1 Time In <+> 2 Case Attendee <+> 2 Role Performed <+> 2 Time In <+> 2 Time Out <+> 2 Procedure <+> 3 Case Attendee <+> 3 Role Performed <+> 3 Time In <+> 3 Procedure [facility] IntraOp Case Times Entry 1 Patient In Room Time 07/02/18 07:10:00 Out Room Time 07/02/18 09:36:00 Anesthesia Start Time 07/02/18 07:10:00 Stop Time 07/02/18 09:36:00 Anesthesia Ready 07/02/18 07:10:00 Surgery / Procedure Times Start Time 07/02/18 07:25:00 Stop Time 07/02/18 09:21:00 Last Modified By: Russel Lauren RN 07/02/18 09:36:34 [facility] IntraOp Case Times Audit 07/02/18 09:36:34 Pack Puller: [email or web address] Modifier: [email or web address] <+> 1 Out Room Time <+> 1 Stop Time <+> 1 Stop Time 07/02/18 07:45:48 Pack Puller: [email or web address] Modifier: [email or web address] <+> 1 Start Time <+> 1 Start Time <+> 1 Anesthesia Ready [facility] IntraOp Cautery Entry 1 ESU Identification Cautery Type Monopolar ESU ID Number [id number] ID Type Hospital Number Cautery Settings Cut Setting 15 Coag Setting 15 Bipolar Setting 15 ESU Grounding Pad Ground Pad Type Adult Grounding Pad Site Right thigh Grounding Pad Site Warm, dry and intact Skin Condition Before Cautery Grounding Pad Site Warm, dry and intact Skin Condition After Cautery Last Modified By: Russel Lauren RN 07/02/18 07:47:31 [facility] IntraOp Communication Entry 1 Communication To Family/Significant other Comment start Communication By Bel Fisher Rn Date and Time 07/02/18 07:47:00 Last Modified By: Russel Lauren RN 07/02/18 07:47:48 [facility] IntraOp Counts Verification Entry 1 Procedure Submandibular Gland Excision Count Info Count Type Sponge, Sharps, Miscellaneous Counts Verification Baseline/pre-procedure Sequence Count Results Not Applicable Counts Performed By Count Performed By Concetta Morejon, Surgical (Scrub) Caretaker Cert Count Performed By Bel Fisher Rn (RN) Last Modified By: Russel Lauren RN 07/02/18 07:48:07 [facility] IntraOp Counts Final Entry 1 Procedure Submandibular Gland Excision Final Count Info Count Type Sponge, Sharps, Miscellaneous Counts Verification Skin Closure/end of Sequence procedure Count Results Correct, surgeon notified Counts Performed By Count Performed By Concetta Morejon, Surgical (Scrub) Caretaker Cert Count Performed By Russel Lauren RN (RN) Last Modified By: Russel Lauren RN 07/02/18 09:21:10 [facility] IntraOp Counts Final Audit 07/02/18 09:21:10 Pack Puller: [email or web address] Modifier: [email or web address] 1 <*> Procedure Submandibular Gland Excision 1 <+> Count Performed By (RN) 1 <+> Counts Verification Sequence [facility] IntraOp Cultures and Spec Summary Entry 1 Cultrures and Specimens Specimen Ordered: Yes Specimens Types Pathology Specimen(s) Labeled Pathology and Sent to Last Modified By: Russel Lauren RN 07/02/18 09:04:18 [facility] IntraOp Cultures and Spec Summary Audit 07/02/18 09:04:18 Pack Puller: [email or web address] Modifier: [email or web address] <+> 1 Specimen Ordered: [facility] IntraOp Departure from OR Entry 1 Integumentary Assessment Integumentary WDL Assessment WDL Transfer/Handoff Transfer to PACU Phase I Handoff Method Bedside/Face to face Post-op Transport Stretcher/Gurney Via Patient Transport ELIZABETH FLORES NA, Accompanied by Bel Fisher Rn Last Modified By: Russel Lauren RN 07/02/18 07:49:09 [facility] IntraOp Dressing and Packing Entry 1 Location LEFT JAWLINE Wound Dressing Item Skin Closure Glue Applied By ROSSI JULIAN MD Last Modified By: Russel Lauren RN 07/02/18 09:04:46 [facility] IntraOp Fire Risk Assessment Entry 1 Fire Info Surgical Site or 1- Yes Incision Above the Xyphoid Open O2 Source 0- No (Mask or Cannula) Available Ignition 1- Yes (ESU, Laser, Light Source) Fire Risk 2 Assessment Score Fire Score Fire Risk Yes Assessment Complete Fire Risk Bel Fisher Rn Assessment Verified By Fire Risk 07/02/18 06:50:00 Assessment Verified Date/Time Fire Risk Standard Fire Yes Safety Precautions Followed Last Modified By: Russel Lauren RN 07/02/18 07:49:33 [facility] IntraOp General Case Django Developer 1 Case Information OR OR 09 [facility] Case Level 1 Room Verified Yes Wound Class I - Clean Specialty SN ENT Surgery Anesthesia Type General ASA Class 3 Diagnosis Preop Diagnosis left submandibular gland edema, sialoadenitis Postop Same As Preop Yes Postop Diagnosis left submandibular gland edema, sialoadenitis Last Modified By: Russel Lauren RN 07/02/18 09:10:36 [facility] IntraOp General Case Data Audit 07/02/18 09:10:36 Pack Puller: [email or web address] Modifier: [email or web address] <+> 1 Postop Same As Preop [facility] IntraOp Intraoperative Assessment Entry 1 Handoff Method Other Valid History / Yes Physical in Chart Preoperative Yes Checklist Reviewed/Evaluated Allergies Reviewed Yes Patient is Latex No Sensitive Isolation Not applicable Precautions Noted Level of WDL Consciousness (WDL = Alert, Oriented to Person, Place, and Time) Skin Assessment Yes Verified Present Upon IVs Arrival to OR Last Modified By: Russel Lauren RN 07/02/18 07:52:14 [facility] IntraOp Intraoperative Equipment Entry 1 Type Equipment Equipment Equipment Other Intraop Monitoring Electrocardiogram Three lead placement (ECG) Electrode Placement Blood Pressure Non-Invasive BP Device Source Blood Pressure Arm, left upper Location Pulse Oximeter Hand, right Probe Site Antiembolic Devices Antiembolic Devices Sequential compression device, knee high Antiembolic Device Bilateral Location Scopes Photo/Video Documentation Photo No Video No Last Modified By: Russel Lauren RN 07/02/18 07:53:09 [facility] IntraOp Medication Admin Entry 1 Entry 2 Medication/Irrigant Xylocaine 1% w/ thrombin 5000units epinephrine 1:200,000 topical kit 30ml vial - [id number] (recombinant) - [id number] Combo Med List Time Administered Route of LOCAL INJECTION Administration Dose Dose 5000 Unit of Measure ml units Volume QS Administered By ROSSI JULIAN MD WILSON, ROBERT E, MD-TRINIDAD Procedure Irrigation Irrigant Volume In Irrigant Volume Out Last Modified By: CutwrightRussel RN Cutwright, Shawsta, RN 07/02/18 07:53:20 07/02/18 08:56:42 [facility] IntraOp Medication Admin Audit 07/02/18 08:56:42 Pack Puller: [email or web address] Modifier: [email or web address] <+> 2 Medication/Irrigant <+> 2 Administered By <+> 2 Dose <+> 2 Unit of Measure [facility] IntraOp Patient Positioning Entry 1 Procedure Submandibular Gland Excision Body Position Supine Left Arm Position Tucked and padded at side Right Arm Position Tucked and padded at side Left Leg Position Uncrossed, parallel Right Leg Position Uncrossed, parallel Feet Uncrossed Yes Pressure Points Yes Checked Positioning Devices Pillows, Roll, Shoulder, Safety Strap, Thighs Device Position BURTON HEADREST, SHOULDER ROLL, ARMS papoosed at sides PILLOW UNDER KNEES Positioned By Bel Fisher Rn, RICARDO CLANCY MD-TRINIDAD Position Verified Positioning Yes Verified by Anesthesia Positioning Yes Verified by Surgeon Last Modified By: Russel Lauren RN 07/02/18 07:55:03 [facility] IntraOp Sign In Entry 1 Patient, Site, Yes Procedure Identified Surgical Consent Yes Confirmed Relevant Surgical Yes Documents Available Surgical Site Yes Marked by person performing procedure Anesthesia Machine Yes Check Completed Medication Checks Yes Completed Allergies Yes Airway Difficult Yes Airway/Aspiration Risk Difficult Yes Airway/Aspiration Intervention Equipment Available Blood Loss Risk Yes Blood Loss Yes Intervention Equipment Prepared and Ready Blood Identifiers Not applicable Verified Per Policy Hypothermia Risk Yes Warming Measures Yes Taken Last Modified By: Russel Lauren RN 07/02/18 07:55:39 [facility] Intra Op Sign Out Entry 1 RN Confirmation Surgical Yes Procedure(s) Identified Instrument, Sponge Yes and Sharps Counts Correct/Documented Equipment Problems N/A Documented Specimen Labeled Yes Correctly Urinary Catheter N/A Documented in IView Chopra Patient Yes Recovery Concerns Reviewed with Anesthesia Provider, Surgeon and RN Chopra Patient Yes Management Concerns Reviewed with Anesthesia Provider, Surgeon and RN Safety Checklist Yes Elements Complete? RN Sign Out Russel Lauren RN Signature RN Sign Out 07/02/18 09:21:00 Signature Date/Time Plan of Care Outcome - Fire Risk OUTCOME STATEMENT: Goal met Patient is free from injury related to surgical fire Plan of Care Outcome - Pt Positioning OUTCOME STATEMENT: Goal met Absence of signs and symptoms of positioning injury. Plan of Care Outcome - Skin Prep OUTCOME STATEMENT: Goal met Intraoperative care is consistent with measures to prevent infection Plan of Care Outcome - Xray/Images OUTCOME STATEMENT: N/A Absence of observable signs or symptoms of radiation injury Plan of Care Outcome - Counts OUTCOME STATEMENT: Goal met Absence of signs and symptoms of injury related to extraneous objects Last Modified By: Russel Lauren RN 07/02/18 09:21:27 [facility] Intra Op Sign Out Audit 07/02/18 09:21:27 Pack Puller: [email or web address] Modifier: [email or web address] 1 <*> RN Sign Out Signature Bel Fisher Rn 1 <+> RN Sign Out Signature Date/Time [facility] IntraOp Skin Prep Entry 1 Procedure Submandibular Gland Excision Prescribed Yes Pre-Surgical Prep Completed Prep Area face and neck Intraop Prep Integumentary WD Assessment WD Prep Agents Betadine solution Prep by Bel Fisher Rn Hair Removal Methods No hair removal performed Last Modified By: Russel Lauren RN 07/02/18 09:05:44 [facility] IntraOp Skin Prep Audit 07/02/18 09:05:44 Pack Puller: [email or web address] Modifier: [email or web address] Entry 1 was deleted. Higher numbered entries shifted one position to fill the gap. <-> 1 Prep Area OPERATIVE SITE <-> 1 Prep Agents <-> 1 Methods No hair removal performed <-> 1 Procedure Submandibular Gland Excision <-> 1 Prescribed Pre-Surgical Prep Yes Completed <-> 1 Prep by <-> [address] [facility] 07/02/18 07:57:27 Pack Puller: [email or web address] Modifier: [email or web address] <+> 2 Prep Area <+> 2 Prep Agents <+> 2 Methods <+> 2 Procedure <+> 2 Prescribed Pre-Surgical Prep Completed <+> 2 Prep by <+> 2 Integumentary Assessment [facility] Intra[facility] Surgical Procedures Entry 1 Procedure Submandibular Gland Excision Additional LEFT SUBMANDIBULAR Procedure GLAND EXCISION Description Primary Procedure Yes Primary Surgeon ROSSI JULIAN MD Start 07/02/18 07:25:00 Stop 07/02/18 09:21:00 Anesthesia Type General Specialty SN ENT Surgery Wound Class I - Clean Last Modified By: Russel Lauren RN 07/02/18 09:21:19 [facility] IntraOp Surgical Procedures Audit 07/02/18 09:21:19 Pack Puller: [email or web address] Modifier: [email or web address] 1 <*> Procedure Submandibular Gland Excision 1 <+> Specialty 1 <+> Stop [facility] IntraOp Time Out Entry 1 Procedure to be Submandibular Gland Performed Excision Time Out Time Out Pause Time 07/02/18 07:25:00 All activity Yes suspended (unless life threatening emergency) Team Verbally Correct patient Confirms Information identity, Correct side and site are marked, Consent form is present and accurate, Agreement on the procedure to be done, Correct patient position, Confirm antibiotics have been administered, Confirm the skin prep has dried, Performed in location of procedure after prepped/draped, Reconcile problems if responses among team members differ Antibiotic Yes Prophylaxis Administered Or In Progress Within the Last 60 Minutes Beta Cecy Yes Administered Venous Yes Thromboembolism Prophylaxis Required Anticipated Critical Events Surgeon None expected, Critical or unexpected steps, Anticipated blood loss, Special equipment need, Special instrumentation need Anesthesia Provider Patient specific concerns, None expected Nursing Assures Sterility of instruments, Equipment concerns or issues, Implant Availability Essential Imaging N/A Labeled and Displayed Last Modified By: Russel Lauren RN 07/02/18 07:46:54 Case Comments <None> Finalized By: Maris Clemens, RN Document Signatures Signed By: Russel Lauren RN 07/02/18 09:37 Maris Clemens RN 07/02/18 12:45 Maris Clemens RN 07/02/18 12:50 Maris Clemens RN 07/03/18 13:23 Maris Clemens RN 07/07/18 13:03 Unfinalized History Date/Time Username Reason for Unfinalizing Freetext Reason for Unfinalizing 07/02/18 12:42 MELLINR Chart Audit 07/02/18 12:47 MELLINR Chart Audit 07/03/18 13:23 MELLINR Modify Pick List 07/07/18 13:02 MELLINR Modify Pick List documented in this encounter Plan of Treatment Not on file documented as of this encounter Visit Diagnoses Not on filedocumented in this encounter
--- OUTSIDE RECORDS SUMMARY | 2024-10-05 15:28 | XMS_ITS | Encounter Summary ---
Author Organization [employer] ([place], [place], [place], [place]) Address [address] [place] [address] Care Team Providers Care Technical Support Analyst Name Role Phone Unavailable Primary Care Provider Unavailabl e Encounter Details Date Type Department Care Team (Late st Contact Info) Description 07/02/2018 Transcribed Document [facility] Family Medicine [address] [place] [address] ProviderOsiris MD [address] [place] [address] Social History Tobacco Use Types [...] Conversion Note - Historical ProviderMD - 07/02/2018 10:14 [place] [address] PATTIE ALBA :1950 Visit Time:07/02/2018 What to do next Your Diagnosis Chronic sialoadenitis, Chronic sialoadenitis Instructions From Your Care Team Keep follow up appointment Call office for any concerns Take percocet OR tylenol for pain - DO NOT take tylenol within 4 hours of narcotic pain medicine Go to ER for significant neck swelling or difficulty breathing Continue antibiotics Discharge Follow Up Instructions: F/U in office in 6-10 days.Discharge home per anesthesia protocol.Call office for any problems or concerns. Diet: Discharge Diet: Resume usual diet as tolerated Follow-Up Appointments Follow Up with ROSSI JULIAN MD When 2018 12:45 PM EDT Where: [address] [place] [address]- Medications What How Much When Instructions Next Dose Unchanged aspirin See instructions 81 mg Unchanged atenolol (atenolol 50 mg oral tablet) 1 Tablet(s) Oral Every Day Unchanged buPROPion (buPROPion 300 mg/ 24 hours (XL) oral tablet, extended release) Oral Interval Every 24 Hours Unchanged fenofibrate (fenofibrate 134 mg oral capsule) 1 Capsule(s) Oral Every Day Unchanged hydrochlorothiazide-lisinopril (hydroCHLOROthiazide-lisinopril 12.5 mg-20 mg oral tablet) 1 Tablet(s) Oral Every Day Unchanged ibuprofen (ibuprofen 100 mg oral tablet) 2 Tablet(s) Oral At Bedtime Unchanged metformin-sitagliptin (Janumet 50 mg-1000 mg oral tablet) 1 Tablet(s) Oral Two Times A Day Unchanged multivitamin with minerals (Ocuvite Extra oral tablet) 1 Tablet(s) Oral Every Day Unchanged PARoxetine (PARoxetine 30 mg oral tablet) 1 Tablet(s) Oral Two Times A Day Unchanged simvastatin (simvastatin 40 mg oral tablet) 1 Tablet(s) Oral Once a day (at bedtime) Percocet 5/325mg 1 tablet every 4-6 hours Take your medications faithfully. Do NOT skip medication. Do NOT stop taking medications without the direction of a physician. Carry a list of your medications with you at all times, and take this medication list with you to your first follow up visit. Report any side effects. Avoid herbal remedies unless discussed with your physician. As part of your treatment plan, your physician may have prescribed a limited course of a controlled substance. This medication may be given to help people with moderate or severe pain or for other medical conditions, but there are risks involved with treatment. Common side effects may include nausea, constipation, drowsiness, sweating, itching, dry mouth, and rash. More serious side effects may include cognitive and motor impairment, like problems with thinking, concentrating, alertness, and movement (e.g. slowed reflexes), and driving and operating heavy machinery can be dangerous. It is important for you to talk to your physician if you have these side effects or questions. These controlled substances can produce physical dependence and be habit-forming if taken for an extended period of time, which means that the body has gotten used to them and may experience withdrawal symptoms if they are abruptly stopped. Withdrawal symptoms can include runny nose, sweating, goose bumps, diarrhea, abdominal cramping, rapid heartbeat, difficulty sleeping, and nervousness. Please dispose of unused and medications per pharmacy guidance. Education Materials General Anesthesia, Adult, Care After These instructions provide you with information about caring for yourself after your procedure. Your health care provider may also give you more specific instructions. Your treatment has been planned according to current medical practices, but problems sometimes occur. Call your health care provider if you have any problems or questions after your procedure. What can I expect after the procedure? After the procedure, it is common to have: ??? Vomiting. ??? A sore throat. ??? Mental slowness. It is common to feel: ??? Nauseous. ??? Cold or shivery. ??? Sleepy. ??? Tired. ??? Sore or achy, even in parts of your body where you did not have surgery. Follow these instructions at home: For at least 24 hours after the procedure: ??? Do not: ? Participate in activities where you could fall or become injured. ? Drive. ? Use heavy machinery. ? Drink alcohol. ? Take sleeping pills or medicines that cause drowsiness. ? Make important decisions or sign legal documents. ? Take care of children on your own. ??? Rest. Eating and drinking ??? If you vomit, drink water, juice, or soup when you can drink without vomiting. ??? Drink enough fluid to keep your urine clear or pale yellow. ??? Make sure you have little or no nausea before eating solid foods. ??? Follow the diet recommended by your health care provider. General instructions ??? Have a responsible adult stay with you until you are awake and alert. ??? Return to your normal activities as told by your health care provider. Ask your health care provider what activities are safe for you. ??? Take [id number]-tncynsb and prescription medicines only as told by your health care provider. ??? If you smoke, do not smoke without supervision. ??? Keep all follow-up visits as told by your health care provider. This is important. Contact a health care provider if: ??? You continue to have nausea or vomiting at home, and medicines are not helpful. ??? You cannot drink fluids or start eating again. ??? You cannot urinate after 8???12 hours. ??? You develop a skin rash. ??? You have fever. ??? You have increasing redness at the site of your procedure. Get help right away if: ??? You have difficulty breathing. ??? You have chest pain. ??? You have unexpected bleeding. ??? You feel that you are having a life-threatening or urgent problem. This information is not intended to replace advice given to you by your health care provider. Make sure you discuss any questions you have with your health care provider. Document Released: 06/02/2001 Document Revised: 07/29/2016 Document Reviewed: 02/08/2016 [employer] Patient Education ?? 2017 [employer]. acetaminophen (oral) (a SEET a MIN oh fen) Actamin, Anacin AF, Apra, Bromo Greene, Children's Tylenol, Elixsure Fever/Pain, Mapap, Medi-Tabs, Q-Pap, Silapap Childrens, Tactinal, Tempra Quicklets, Tycolene, Tylenol, Vitapap What is the most important information I should know about acetaminophen? You should not use this medication if you have severe liver disease. An overdose of acetaminophen can damage your liver or cause . ? Adults and teenagers who weigh at least 110 pounds should not take more than 1000 milligrams (mg) at one time, or more than 4000 mg in 24 hours. ?? Children younger than 12 years old should not take more than 5 doses in 24 hours, using only the number of milligrams per dose that is recommended for the child's weight and age. Use exactly as directed on the label. Avoid also using other medicines that contain acetaminophen (sometimes abbreviated as APAP), or you could have a fatal overdose. Call your doctor at once if you have nausea, pain in your upper stomach, itching, loss of appetite, dark urine, rupa-colored stools, or jaundice (yellowing of your skin or eyes). Stop taking this medicine and call your doctor right away if you have skin redness or a rash that spreads and causes blistering and peeling. What is acetaminophen? There are many brands and forms of acetaminophen available. Not all brands are listed on this leaflet. Acetaminophen is a pain reliever and a fever hydrological technical officer. Acetaminophen is used to treat many conditions such as headache, muscle aches, arthritis, backache, toothaches, colds, and fevers. Acetaminophen may also be used for purposes not listed in this medication guide. What should I discuss with my healthcare provider before taking acetaminophen? You should not take acetaminophen if you are allergic to it, or if you have severe liver disease. Do not take acetaminophen without a doctor's advice if you have ever had alcoholic liver disease (cirrhosis) or if you drink more than 3 alcoholic beverages per day. You may not be able to take acetaminophen. Your doctor will determine whether acetaminophen is safe for you to use during . Do not use this medicine without the advice of your doctor if you are . Acetaminophen can pass into breast milk and may harm a nursing baby. Tell your doctor if you are breast-feeding a baby. Do not give this medicine to a child younger than 2 years old without the advice of a doctor. How should I take acetaminophen? Use exactly as directed on the label, or as prescribed by your doctor. Do not use in larger or smaller amounts or for longer than recommended. Do not take more than your recommended dose. An overdose of acetaminophen can damage your liver or cause . ? Adults and teenagers who weigh at least 110 pounds (50 kilograms): Do not take more than 1000 milligrams (mg) at one time. Do not take more than 4000 mg in 24 hours. ?? Children younger than 12 years old: Do not take more than 5 doses of acetaminophen in 24 hours. Use only the number of milligrams per dose that is recommended for the child's weight and age. Use exactly as directed on the label. ?? Avoid also using other medicines that contain acetaminophen, or you could have a fatal overdose. If you are treating a child, use a pediatric form of acetaminophen. Use only the special dose-measuring dropper or oral syringe that comes with the specific pediatric form you are using. Carefully follow the dosing directions on the medicine label. Measure liquid medicine with the dosing syringe provided, or with a special dose-measuring spoon or medicine cup. If you do not have a dose-measuring device, ask your pharmacist for one. Acetaminophen made for infants is available in two different dose concentrations, and each concentration comes with its own medicine dropper or oral syringe. These dosing devices are not equal between the different concentrations. Using the wrong device may cause you to give your child an overdose of acetaminophen. Never mix and match dosing devices between formulations of acetaminophen. You may need to shake the liquid before each use. Follow the directions on the medicine label. The chewable tablet must be chewed thoroughly before you swallow it. Make sure your hands are dry when handling the acetaminophen disintegrating tablet. Place the tablet on your tongue. It will begin to dissolve right away. Do not swallow the tablet whole. Allow it to dissolve in your mouth without chewing. To use the acetaminophen effervescent granules, dissolve one packet of the granules in at least 4 ounces of water. Stir this mixture and drink all of it right away. To make sure you get the entire dose, add a little more water to the same glass, swirl gently and drink right away. Stop taking acetaminophen and call your doctor if: ? you still have a fever after 3 days of use; ?? you still have pain after 7 days of use (or 5 days if treating a child); ?? you have a skin rash, ongoing headache, or any redness or swelling; or ?? if your symptoms get worse, or if you have any new symptoms. This medication can cause unusual results with certain lab tests for glucose (sugar) in the urine. Tell any doctor who treats you that you are using acetaminophen. Store at room temperature away from heat and moisture. What happens if I miss a dose? Since acetaminophen is used when needed, you may not be on a dosing schedule. If you are on a schedule, use the missed dose as soon as you remember. Skip the missed dose if it is almost time for your next scheduled dose. Do not use extra medicine to make up the missed dose. What happens if I overdose? Seek emergency medical attention or call the Poison Help line at . An overdose of acetaminophen can be fatal. The first signs of an acetaminophen overdose include loss of appetite, nausea, vomiting, stomach pain, sweating, and confusion or weakness. Later symptoms may include pain in your upper stomach, dark urine, and yellowing of your skin or the whites of your eyes. What should I avoid while taking acetaminophen? Ask a doctor or pharmacist before using any other cold, allergy, pain, or sleep medication. Acetaminophen (sometimes abbreviated as APAP) is contained in many combination medicines. Taking certain products together can cause you to get too much acetaminophen which can lead to a fatal overdose. Check the label to see if a medicine contains acetaminophen or APAP. Avoid drinking alcohol. It may increase your risk of liver damage while taking acetaminophen. What are the possible side effects of acetaminophen? Get emergency medical help if you have signs of an allergic reaction: hives; difficulty breathing; swelling of your face, lips, tongue, or throat. In rare cases, acetaminophen may cause a severe skin reaction that can be fatal. This could occur even if you have taken acetaminophen in the past and had no reaction. Stop taking this medicine and call your doctor right away if you have skin redness or a rash that spreads and causes blistering and peeling. If you have this type of reaction, you should never again take any medicine that contains acetaminophen. Stop taking acetaminophen and call your doctor at once if you have: ? nausea, upper stomach pain, itching, loss of appetite; ?? dark urine, rupa-colored stools; or ?? jaundice (yellowing of the skin or eyes). This is not a complete list of side effects and others may occur. Call your doctor for medical advice about side effects. You may report side effects to FDA at 8-586-VQI-8152. What other drugs will affect acetaminophen? Other drugs may interact with acetaminophen, including prescription and iijx-fwt-powjvmu medicines, vitamins, and herbal products. Tell your doctor about all your current medicines and any medicine you start or stop using. Where can I get more information? Your pharmacist can provide more information about acetaminophen. Remember, keep this and all other medicines out of the reach of children, never share your medicines with others, and use this medication only for the indication prescribed. Every effort has been made to ensure that the information provided by [employer]. [employer]') is accurate, up-to-date, and complete, but no guarantee is made to that effect. Drug information contained herein may be time sensitive. [employer] information has been compiled for use by healthcare practitioners and consumers in the [place] and therefore [employer] does not warrant that uses outside of the [place] are appropriate, unless specifically indicated otherwise. [employer] drug information does not endorse drugs, diagnose patients or recommend therapy. [employer] drug information is an informational resource designed to assist licensed healthcare practitioners in caring for their patients and/or to serve consumers viewing this service as a supplement to, and not a substitute for, the expertise, skill, knowledge and judgment of healthcare practitioners. The absence of a warning for a given drug or drug combination in no way should be construed to indicate that the drug or drug combination is safe, effective or appropriate for any given patient. [facility] does not assume any responsibility for any aspect of healthcare administered with the aid of information [facility] provides. The information contained herein is not intended to cover all possible uses, directions, precautions, warnings, drug interactions, allergic reactions, or adverse effects. If you have questions about the drugs you are taking, check with your doctor, nurse or pharmacist. Copyright 9270-5498 [employer] [facility] [employer]. Version: .. Revision Date: 09/18/2016.acetaminophen and oxycodone (a SEET a MIN oh fen and OX i KOE done) Endocet 10/325, Endocet 2.5/325, Endocet 5/325, Endocet 7.5/325, Nalocet, Percocet 10/325, Percocet 2.5/325, Percocet 5/325, Percocet 7.5/325, Primalev, Primlev, Roxicet, Xartemis XR What is the most important information I should know about acetaminophen and oxycodone? MISUSE OF OPIOID MEDICINE CAN CAUSE ADDICTION, OVERDOSE, OR . Keep the medication in a place where others cannot get to it. An overdose of acetaminophen can damage your liver or cause . Call your doctor at once if you have pain in your upper stomach, loss of appetite, dark urine, or jaundice (yellowing of your skin or eyes). Taking opioid medicine during may cause life-threatening withdrawal symptoms in the . Fatal side effects can occur if you use opioid medicine with alcohol, or with other drugs that cause drowsiness or slow your breathing. Stop taking this medicine and call your doctor right away if you have skin redness or a rash that spreads and causes blistering and peeling. What is acetaminophen and oxycodone? Oxycodone is an opioid pain medication, sometimes called a narcotic. Acetaminophen is a less potent pain reliever that increases the effects of oxycodone. Acetaminophen and oxycodone is a combination medicine used to relieve moderate to severe pain. Acetaminophen and oxycodone may also be used for purposes not listed in this medication guide. What should I discuss with my healthcare provider before taking acetaminophen and oxycodone? You should not use this medicine if you are allergic to acetaminophen or oxycodone, or if you have: ? severe asthma or breathing problems; or ?? a blockage in your stomach or intestines. Tell your doctor if you have ever had: ? liver disease; ?? a drug or alcohol addiction; ?? kidney disease; ?? a head injury or seizures; ?? urination problems; or ?? problems with your thyroid, pancreas, or gallbladder. If you use opioid medicine while you are , your baby could become dependent on the drug. This can cause life-threatening withdrawal symptoms in the baby after it is born. Babies born dependent on opioids may need medical treatment for several weeks. Do not breast-feed. This medicine can pass into breast milk and cause drowsiness, breathing problems, or in a nursing baby. How should I take acetaminophen and oxycodone? Follow all directions on your prescription label. Never take this medicine in larger amounts, or for longer than prescribed. An overdose can damage your liver or cause . Tell your doctor if the medicine seems to stop working as well in relieving your pain. Never share this medicine with another person, especially someone with a history of drug abuse or addiction. MISUSE CAN CAUSE ADDICTION, OVERDOSE, OR . Keep the medicine in a place where others cannot get to it. Selling or giving away acetaminophen and oxycodone is against the law. Measure liquid medicine carefully. Use the dosing syringe provided, or use a medicine dose-measuring device (not a kitchen spoon). If you need surgery or medical tests, tell the doctor ahead of time that you are using this medicine. You should not stop using this medicine suddenly. Follow your doctor's instructions about tapering your dose. Store at room temperature away from moisture and heat. Keep track of your medicine. You should be aware if anyone is using it improperly or without a prescription. Do not keep leftover opioid medication. Just one dose can cause in someone using this medicine accidentally or improperly. Ask your pharmacist where to locate a drug take-back disposal program. If there is no take-back program, flush the unused medicine down the toilet. What happens if I miss a dose? Since this medicine is used for pain, you are not likely to miss a dose. Skip any missed dose if it is almost time for your next dose. Do not use two doses at one time. What happens if I overdose? Seek emergency medical attention or call the Poison Help line at . An overdose of acetaminophen and oxycodone can be fatal. The first signs of an acetaminophen overdose include loss of appetite, nausea, vomiting, stomach pain, sweating, and confusion or weakness. Later symptoms may include pain in your upper stomach, dark urine, and yellowing of your skin or the whites of your eyes. Overdose can also cause severe muscle weakness, pinpoint pupils, very slow breathing, extreme drowsiness, or coma. What should I avoid while taking acetaminophen and oxycodone? Avoid driving or operating machinery until you know how this medicine will affect you. Dizziness or drowsiness can cause falls, accidents, or severe injuries. Do not drink alcohol. Dangerous side effects or could occur. Ask a doctor or pharmacist before using any other medicine that may contain acetaminophen (sometimes abbreviated as APAP). Taking certain medications together can lead to a fatal overdose. What are the possible side effects of acetaminophen and oxycodone? Get emergency medical help if you have signs of an allergic reaction: hives; difficulty breathing; swelling of your face, lips, tongue, or throat. Opioid medicine can slow or stop your breathing, and may occur. A person caring for you should seek emergency medical attention if you have slow breathing with long pauses, blue colored lips, or if you are hard to wake up. In rare cases, acetaminophen may cause a severe skin reaction that can be fatal. This could occur even if you have taken acetaminophen in the past and had no reaction. Stop taking this medicine and call your doctor right away if you have skin redness or a rash that spreads and causes blistering and peeling. Call your doctor at once if you have: ? noisy breathing, sighing, shallow breathing; ?? a light-headed feeling, like you might pass out; ?? weakness, tiredness, fever, unusual bruising or bleeding; ?? confusion, unusual thoughts or behavior; ?? problems with urination; ?? liver problems--nausea, upper stomach pain, tiredness, loss of appetite, dark urine, rupa-colored stools, jaundice (yellowing of the skin or eyes); or ?? low cortisol levels-- nausea, vomiting, loss of appetite, dizziness, worsening tiredness or weakness. Seek medical attention right away if you have symptoms of serotonin syndrome, such as: agitation, hallucinations, fever, sweating, shivering, fast heart rate, muscle stiffness, twitching, loss of coordination, nausea, vomiting, or diarrhea. Serious side effects may be more likely in older adults and those who are overweight, malnourished, or debilitated. Long-term use of opioid medication may affect fertility (ability to have children) in men or women. It is not known whether opioid effects on fertility are permanent. Common side effects include: ? dizziness, drowsiness, feeling tired; ?? feelings of extreme happiness or sadness; ?? nausea, vomiting, stomach pain; ?? constipation; or ?? headache. This is not a complete list of side effects and others may occur. Call your doctor for medical advice about side effects. You may report side effects to FDA at 8-890-FAA-4194. What other drugs will affect acetaminophen and oxycodone? You may have breathing problems or withdrawal symptoms if you start or stop taking certain other medicines. Tell your doctor if you also use an antibiotic, antifungal medication, heart or blood pressure medication, seizure medication, or medicine to treat HIV or hepatitis C. Opioid medication can interact with many other drugs and cause dangerous side effects or . Be sure your doctor knows if you also use: ? cold or allergy medicines, bronchodilator asthma/COPD medication, or a diuretic ('water pill'); ?? medicines for motion sickness, irritable bowel syndrome, or overactive bladder; ?? other narcotic medications--opioid pain medicine or prescription cough medicine; ?? a sedative like Valium--diazepam, alprazolam, lorazepam, Xanax, Klonopin, Versed, and others; ?? drugs that make you sleepy or slow your breathing--a sleeping pill, muscle relaxer, medicine to treat mood disorders or mental illness; ?? drugs that affect serotonin levels in your body--a stimulant, or medicine for depression, Parkinson's disease, migraine headaches, serious infections, or nausea and vomiting. This list is not complete. Other drugs may affect acetaminophen and oxycodone, including prescription and [id number] medicines, vitamins, and herbal products. Not all possible interactions are listed here. Where can I get more information? Your doctor or pharmacist can provide more information about acetaminophen and oxycodone. Remember, keep this and all other medicines out of the reach of children, never share your medicines with others, and use this medication only for the indication prescribed. Every effort has been made to ensure that the information provided by thePlatform. ('[employer]') is accurate, up-to-date, and complete, but no guarantee is made to that effect. Drug information contained herein may be time sensitive. [employer] information has been compiled for use by healthcare practitioners and consumers in the [place] and therefore [employer] does not warrant that uses outside of the [place] are appropriate, unless specifically indicated otherwise. [employer] drug information does not endorse drugs, diagnose patients or recommend therapy. [employer] drug information is an informational resource designed to assist licensed healthcare practitioners in caring for their patients and/or to serve consumers viewing this service as a supplement to, and not a substitute for, the expertise, skill, knowledge and judgment of healthcare practitioners. The absence of a warning for a given drug or drug combination in no way should be construed to indicate that the drug or drug combination is safe, effective or appropriate for any given patient. [employer] does not assume any responsibility for any aspect of healthcare administered with the aid of information [employer] provides. The information contained herein is not intended to cover all possible uses, directions, precautions, warnings, drug interactions, allergic reactions, or adverse effects. If you have questions about the drugs you are taking, check with your doctor, nurse or pharmacist. Copyright 9987-2916 thePlatform. Version: 18.02. Revision Date: 02/04/2018. Emergency Awareness and Preventative Care STROKE is an EMERGENCY Every Minute Counts Act FAST and Check for these signs: FACE Does the face look uneven? ARM Does one arm drift down? SPEECH Does their speech sound strange? TIME Call at any sign of stroke Stroke Risk Factors Atrial Fibrillation (irregular heartbeat) Diabetes Family history of stroke Heart Disease Heavy alcohol use High Blood Pressure High Cholesterol Physical inactivity and obesity Smoking Cigarette Smoking The facts are clear, cigarette smoking will shorten your life. Smoking can cause many illnesses along the way. As a healthcare provider, we recommend that you stop smoking. Assistance with quitting is available by contacting 4-340-ZOZHNOW. This is a free resource providing counseling, support, and referral. Or you may contact your personal physician. [place] Suicide Prevention Lifeline: The National Suicide Prevention Lifeline is a national network of local crisis centers that provides free and confidential emotional support to people in suicidal crisis or emotional distress 24 hours a day, 7 days a week. Don't Wait! Stop a Heart Attack Before it Starts What is a heart attack? A heart attack is damage or to a part of the heart from severely decreased or lack of blood flow to the heart. Over time, arteries can become narrow from the buildup of fat and cholesterol, which is called plaque. The plaque can rupture causing a blood clot to form. When the blood clot forms, the artery can become severely narrowed or completely blocked, causing a heart attack. Heart attack is the leading cause of in the [place]. 85% of muscle damage occurs within the first 2 hours. Delay in the recognition of heart attack symptoms increases the chances of . Know the early symptoms of a heart attack: Nausea Feeling of fullness in chest Jaw Pain Pain that travels down one or both arms Fatigue/being tired Anxiety Back Pain Chest pressure, squeezing, or discomfort Shortness of breath Sweating, or a cold sweat Feeling of impending doom There are unusual signs of a heart attack, too! Women, the elderly, and diabetics may present with atypical symptoms: Fainting/dizziness Weakness Confusion Risk Factors for a Heart Attack Some heart disease risk factors, such as age and family history, cannot be changed. Others, like smoking and lack of exercise, can be changed. Smoking High Cholesterol High Blood Pressure Family History Obesity Age Gender (Males are at higher risk) Lack of Exercise Diabetes Diet Stress Excessive Alcohol Intake If you or someone you know is experiencing the signs and symptoms of a heart attack, DON???T DELAY. Call immediately and seek help. If someone collapses, perform CPR! Do not attempt to drive if you are having symptoms of heart attack. Hands-Only CPR Why Hands-Only CPR? Hands-Only CPR has been shown to be as effective as conventional CPR for cardiac arrests that occur outside of a hospital. Survival depends on immediately receiving CPR from someone nearby. How do you perform Hands-Only CPR? There are two easy steps: Call 9-1-1 if you see a teen or adult collapse Push hard and fast in the center of the chest at a beat of 100 beats per minute. Save a life! 4 WAYS TO GET AHEAD OF SEPSIS SEPSIS is a MEDICAL EMERGENCY. Time matters! Infections put you and your family at risk for a life-threatening condition called sepsis. Sepsis is the body's extreme response to an infection. It is life-threatening, and without timely treatment, sepsis can rapidly lead to tissue damage, organ failure, and . Sepsis happens when an infection you already have-in your skin, lungs, urinary tract or somewhere else-triggers a chain reaction throughout your body. 1 PREVENT INFECTIONS Take good care of chronic conditions. Talk to your doctor about getting the recommended vaccines. 2 PRACTICE GOOD HYGIENE Wash your hands frequently. Keep cuts or open sores clean and covered until they are healed. 3 KNOW THE SYMPTOMS Confusion or disorientation Shortness of breath High heart rate Fever, shivering, or feeling very cold Extreme pain or discomfort Clammy or sweaty skin 4 ACT FAST Get medical care IMMEDIATELY if you suspect sepsis or if you have an infection that is not getting better or is getting worse. To learn more about sepsis and how to prevent infections, visit www.cdc.gov/sepsis. Patient Portal Reminder: Be sure to sign up for the [facility] patient portal, which gives you 30/09 access to your medical information ??? including these discharge instructions ??? using your computer, smartphone, or tablet. Just go to [employer] to get started. Questions? Call . Test Results Laboratory or Other Results This Visit (last charted value for your 07/02/2018 visit) Hematology 06/19/18 14:38:00 WBC: 5.7 K/uL -- Normal range between ( 3.9 and 10.0 ) RBC: 4.23 Million/uL -- Normal range between ( 3.93 and 5.22 ) Hct: 35.9 % -- Normal range between ( 34.1 and 44.9 ) Hgb: 11.9 Gram/dL -- Normal range between ( 11.2 and 15.7 ) Platelet Count: 307 K/uL -- Normal range between ( 163 and 369 ) MCH: 28.1 pg -- Normal range between ( 25.6 and 32.2 ) MCHC: 33.1 Gram/dL -- Normal range between ( 32.3 and 36.5 ) MCV: 84.9 fL -- Normal range between ( 79.0 and 94.8 ) Slide Review: No Eos %: 7.9 % -- Normal range between ( 1.0 and 7.0 ) [place] #: 0.55 K/uL -- Normal range between ( 0.24 and 0.82 ) Eos #: 0.45 K/uL -- Normal range between ( 0.04 and 0.54 ) [place] %: 9.7 % -- Normal range between ( 4.7 and 12.5 ) Baso %: 1.2 % -- Normal range between ( 0.0 and 1.0 ) Baso #: 0.07 K/uL -- Normal range between ( 0.01 and 0.08 ) RDW: 12.9 % -- Normal range between ( 11.6 and 14.4 ) Neut %: 57.3 % -- Normal range between ( 34.0 and 71.0 ) Neut #: 3.25 K/uL -- Normal range between ( 1.56 and 6.13 ) Lymph %: 23.5 % -- Normal range between ( 19.3 and 53.0 ) Lymph #: 1.33 K/uL -- Normal range between ( 1.18 and 3.74 ) MPV: 9.8 fL -- Normal range between ( 9.4 and 12.4 ) IG#: 0 x10(3)/uL IG%: 0 % -- Normal range between ( 0 and 1 ) General Chemistry 07/02/18 09:50:00 Glucose POC2: 145 mg/dL -- Normal range between ( 70 and 110 ) 06/19/18 14:38:00 Creatinine Level: 1.52 mg/dL -- Normal range between ( 0.55 and 1.02 ) Sodium Level: 143 mmol/L -- Normal range between ( 136 and 146 ) Potassium Level: 4.0 mmol/L -- Normal range between ( 3.5 and 5.1 ) Chloride Level: 105 mmol/L -- Normal range between ( 102 and 112 ) Carbon Dioxide Level: 28 mmol/L -- Normal range between ( 21 and 32 ) Anion Gap: 14 -- Normal range between ( 9 and 20 ) Bun/Creatinine: 18.4 -- Normal range between ( 8.0 and 20.0 ) Calcium Level: 9.5 mg/dL -- Normal range between ( 8.5 and 10.1 ) eGFR : 41 mL/min/1.73m2 eGFR NonAfrican: 34 mL/min/1.73m2 Glucose Level: 94 mg/dL -- Normal range between ( 74 and 106 ) Blood Urea Nitrogen: 28 mg/dL -- Normal range between ( 7 and 22 ) Patient Name:PATTIE ALBAJUAN MANUELWERNER I have received this information and was given the opportunity to ask questions. Patient/Scrum Product Owner Name: Patient/Scrum Product Owner Signature: Relationship to Patient: Clinician/Hospital Scrum Product Owner Signature: Date: documented in this encounter Plan of Treatment Not on file documented as of this encounter Visit Diagnoses Not on filedocumented in this encounter
--- OUTSIDE RECORDS SUMMARY | 2024-10-05 15:28 | XMS_ITS | Encounter Summary ---
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 CARDIOLOGY [address] [place] [address] Amrit Wolfe MD [address] [facility] [address] [place] [address] Scheduled Procedures Name Priority Associated Diagnoses Date/Ti me LEFT HEART CATH w/cors Angina pectoris documented as of this encounter Visit Diagnoses Not on filedocumented in this encounter Care Teams Pc Maintenance Technician Relationship Specialty Start Date End Date Kulwant Bautista MD [address] [facility] [address] [place] [address] PCP - General Internal Medicine 07/23/16 documented as of this encounter
--- OUTSIDE RECORDS SUMMARY | 2024-10-05 15:28 | XMS_ITS | Encounter Summary ---
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 - [facility] Social History Tobacco Use [...] Description 10/21/2024 2:30 PM EDT Office Visit [facility] C[facility]IOLOGY [address] [place] [address] Amrit Wolfe MD [address] [facility] [address] [place] [address] Scheduled Procedures Name Priority Associated Diagnoses Date/Ti me LEFT HEART CATH w/cors Angina pectoris documented as of this encounter Visit Diagnoses Not on filedocumented in this encounter Care Teams Block Breaker Relationship Specialty Start Date End Date Kulwant Bautista MD [address] [facility] [address] [place] [address] PCP - General Internal Medicine 07/23/16 documented as of this encounter
--- OUTSIDE RECORDS SUMMARY | 2024-10-05 15:28 | XMS_ITS | Encounter Summary ---
Author Organization [employer] ([place], [place], [place], [place]) Address [address] [place] [address] Care Team Providers Care Biztalk Consultant Name Role Phone Unavailable Primary Care Provider Unavailabl e Encounter Details Date Type Department Care Team (Late st Contact Info) Description 07/02/2018 Transcribed Document [facility] Family Medicine [address] [place] [address] ProviderOsiris MD [address] [place] [address] Social History Tobacco Use Types [...] Conversion Note - Osiris ProviderMD - 07/02/2018 10:12 AM CDT Patient Education Materials Follows: General Anesthesia, Adult, Care After These instructions [...] For at least 24 hours after the procedure:??? Do not: ? Participate in activities where [...] activities are safe for you. ??? Take [id number] and prescription medicines only as told by [...] eating again. ??? You cannot urinate after 8?12 hours. ??? You develop a skin rash. [...] 06/02/2001 Document Revised: 07/29/2016 Document Reviewed: 02/08/2016 Elsevier Interactive Patient Education ? 2017 [employer] documented in this encounter Plan of Treatment Not on file documented as of this encounter Visit Diagnoses Not on filedocumented in this encounter
--- OUTSIDE RECORDS SUMMARY | 2024-10-05 15:28 | XMS_ITS | Encounter Summary ---
Author Organization [employer] ([place], [place], [place], [place]) Address [address] [place] [address] Care Team Providers Care [employer] Assistant Football Coach Name Role Phone Unavailable Primary Care Provider Unavailabl e Encounter Details Date Type Department Care Team (Late st Contact Info) Description 07/02/2018 Transcribed Document [facility] [place] [address] [place] [address] ProviderOsiris MD [address] [place] [address] Social History Tobacco Use Types [...] Conversion Note - Historical ProviderMD - 07/02/2018 6:08 AM CDT Pediatric Growth Entered On: 07/02/2018 6:08 EDT Performed On: 07/02/2018 6:08 EDT by Shantell Shore Patient School Inspector Height and Weight, Clinical Dosing Height Source : Stated Height Entry Format : [place] Height, Feet : 5 ft(Converted to: 152 cm, 60 Inch) Height, Inches : 4.6 Inch(Converted to: 0 ft 5 Inch, 11.68 cm) Clinical Height : 164.08 cm Weight Source : Standing scale Weight Entry Format : [place] Clinical Dosing Weight : 71.82 kg Weight, Pounds : 158 lb Body Surface Area (BSA) : 1.78 m2 Body Mass Index : 26.7 kg/m2 (HI) [place] Body Weight : 56 kg Shantell Shore Patient School Inspector - 07/02/2018 6:08 EDT Electronically signed by [facility] Conversion Cattle Sticker Cerner at 06/26/2022 11:26 AM CDT documented in this encounter Plan of Treatment Not on file documented as of this encounter Visit Diagnoses Not on filedocumented in this encounter
--- OUTSIDE RECORDS SUMMARY | 2024-10-05 15:28 | XMS_ITS | Clinical Summary ---
Author Organization [facility] Address [address] [place] [address] Care Team Providers Care Web Analytics Developer Name Role Phone Kulwant Bautista MD Primary Care Provider [phone] Allergies Active Allergy Reactions Criticality Noted Date Comments Penicillins Anaphylaxis High 09/03/2016 Sulfa Antibiotics Itching,Rash Low 09/03/2016 Medications atenolol (TENORMIN) 50 MG tablet Take 1 tablet by mouth Every Morning. Active [place]-3 Fatty Acids (OMEGA 3 PO) Take 1 capsule by mouth Every Morning. Active lisinopril-hydr ochlorothiazide (PRINZIDE,ZESTO RETIC) 20-12.5 MG per tablet Take 1 tablet by mouth Daily. Active Multiple Vitamins-Minera ls (OCUVITE PO) Take 1 tablet by mouth Daily. Active amLODIPine (NORVASC) 5 MG tablet Take 1 tablet by mouth Daily. for blood pressure 05/24/2020 Active omeprazole (priLOSEC) 20 MG capsule TAKE 1 CAPSULE BY MOUTH IN THE MORNING FOR GERD 05/15/2020 Active fenofibrate micronized (LOFIBRA) 134 MG capsule Take 1 capsule by mouth Daily. 06/05/2022 Active vitamin E 1000 UNIT capsule Take 1 capsule by mouth Daily. Active Cyanocobalamin 1000 MCG/ML kit Inject as directed Every 30 (Thirty) Days. Active simvastatin (ZOCOR) 40 MG tablet Take 1 tablet by mouth Every Night. Active melatonin 5 MG tablet tablet Take 1 tablet by mouth Every Night. Active NON FORMULARY CPAP AT NIGHT Ac tive PARoxetine (PAXIL) 20 MG tablet Take 1 tablet by mouth Every Evening. 08/16/2023 Active PARoxetine (PAXIL) 30 MG tablet Take 1 tablet by mouth Every Morning. 07/16/2023 Active Janumet 50-1000 MG per tablet Take 1 tablet by mouth Every 12 (Twelve) Hours. 08/02/2023 Active Active Problems No known active problems Family History Medical History Relation Name Comments Hypertension Brother Atrial fibrillation Mother Relation Name Status Comments Brother Alive Father head injury Mother Social History Tobacco Use Types Packs/Day Years Used Date Smoking Tobacco: Former Cigarettes Q uit: 1994 Passive Smoke Exposure: Past Smokeless Tobacco: Never Tobacco Cessation:Counseling Given: Not Answered Alcohol Use Standard Drinks/Week Comments Not Currently 0 (1 standard drink = 0.6 oz pur e alcohol) RARE AUDIT-C Answer Date Recorded Q1: How often do you have a drink containing alc ohol? Never 06/29/2020 Average Number of Drinks Not on file Frequency of Binge Drinking Not on file 06/09 Abuse Screen Answer Date Recorded Unsafe at Home or Work/School Not on file Feels Threatened by Someone? Not on file 01/2023 Does Anyone Keep You from Co ntacting Others or Doint Things Outside the Home? Not on file 12/18/2022 Physical Sign of Abuse Present Not on file 1 Housing Stability Answer Date Recorded Current Living Arrangements Not on file 12/08 Potentially Unsafe Housing Conditions Not on alphonse e 12/18/2022 Family and Community Support Answer Kaleb e Recorded Help with Day-to-Day Activities Not on file 12/18/2022 Lonely or Isolated Not on file 12/18/2022 Employment Answer Date Recorded Do you want help finding or keeping work or a joel b? Not on file 12/18/2022 Disabilities Answer Date Recorded Concentrating, Remembering, or Making Decisions Difficulty Not on file 12/18/2022 Doing Errands Independently Difficulty Not on fi le 12/18/2022 Education Answer Date Recorded Help with school or training? Not on file Preferred Language Not on file 12/18/2022 Comments No Sex and Gender Information Value Date Recorded Sex Assigned at Not on file Legal Sex Female 10:19 AM EDT Gender Identity Not on file Sexual Orientation Not on file Last Filed Vital Signs Vital Sign Reading Time Taken Comments Blood Pressure 116/64 08/21/2023 10:25 AM EDT Pulse 53 08/21/2023 10:25 AM EDT Temperature 36.3 C (97.4 F) 09/11/2016 6:12 AM EDT Respiratory Rate 18 09/11/2016 6:12 AM EDT Oxygen Saturation 97% 08/21/2023 10:25 AM EDT Inhaled Oxygen Concentration - - Weight 71.7 kg (158 lb) 08/21/2023 10:25 AM EDT Height 162.6 cm (5' 4 ) 08/21/2023 10:25 AM EDT Body Mass Index 27.12 08/21/2023 10:25 AM EDT Plan of Treatment Upcoming Encounters Date Type Department Care Team (Late st Contact Info) Description 10/21/2024 2:30 PM EDT Office Visit [facility] CARDIOLOGY [address] [place] [address] Amrit Wolfe MD [address] [facility] [address] [place] [address] Scheduled Procedures Name Priority Associated Diagnoses Date/Ti me LEFT HEART CATH w/cors Angina pectoris Health Maintenance Due Date Last Done Comments DXA SCAN 1948 COLOGUARD 1993 COLON CANCER SCREENING 5 YEA R SIGMOIDOSCOPY 1993 [address] COLONOGRAPHY 1993 FECAL OCCULT BLOOD TEST 1993 FIT Testing (1 year) 1993 ANNUAL WELLNESS VISIT 09/03/2016 HEPATITIS C SCREENING 09/03/2016 RSV Vaccine - Adults (1 - 1- dose 75+ series) 07/10/2023 LIPID PANEL 09/19/2023 09/18/2022, 09/07, 06/26/2020, Additional history exists COVID-19 Vaccine (2023-2 5 season) 2023 12/12/2021, 12/11/2020, 05/18/2020, Additional history exists INFLUENZA VACCINE 12/08/2024 12/12/2021, , 12/12/2021, Additional history exists COLONOSCOPY 06/15/2025 06/16/2015 COLORECTAL CANCER SCREENING 06/15/2025 TDAP/TD VACCINES (2 - Td or Tdap) 04/14/2033 024, 12/06/2003 MAMMOGRAM Discontinued 05/04/2018, 04/11, 05/01/2015 Pneumococcal Vaccine 50+ Completed 08/15/2021, 11/09 ZOSTER VACCINE Completed 09/17/2022, 07/16/2022 HEMOGLOBIN A1C Discontinued 12/18/2022, 12/08, 09/18/2022, Additional history exists Procedures Procedure Name Priority Date/Time Associated Diagnosis Comments HEMOGLOBIN A1C STAT 09/11/2016 6:26 AM EDT LIPID PANEL STAT 09/11/2016 6:26 AM EDT from Last 3 Months or Most Recently Relevant to Health Maintenance Results * (ABNORMAL) Hemoglobin A1c (09/11/2016 6:26 AM EDT) Hemoglobin A1C 7.20(H) 4.80 - 5.60 % 09/11/2016 9:39 AM EDT [facility] Blood Line / Unknown 09/11/2016 6: 26 AM EDT 09/11/2016 6:38 AM EDT Narrative [facility] - 09/11/2016 9:39 AM EDT The [place] [employer] recommends maintenance of Hemoglobin A1C at 7.0% or lower. Goals for Hemoglobin A1C reduction may need to be modified if hypoglycemia is a problem. [facility] BLOOD ORDERABLES Final Result [facility]
[address] [place] [address], * Lipid Panel (09/11/2016 6:26 AM EDT) Total Cholesterol 155 0 - 200 mg/dL 09/11/2016 7:33 AM EDT [facility] Triglycerides 123 0 - 150 mg/dL 09/11/2016 7:33 AM EDT [facility] HDL Cholesterol 40 40 - 60 mg/dL 09/11/2016 7:33 AM EDT [facility] LDL Cholesterol 106 0 - 130 mg/dL 09/11/2016 7:33 AM EDT [facility] Blood Line / Unknown 09/11/2016 6: 26 AM EDT 09/11/2016 6:38 AM EDT Narrative [facility] - 09/11/2016 7:33 AM EDT Cholesterol Reference Ranges: Desirable < 200 mg/dL Borderline 200-239 mg/dL High Risk > 239 mg/dL Triglyceride Reference Ranges: Normal < 150 mg/dL Borderline 150-199 mg/dL High 200-499 mg/dL Very High > 499 mg/dL HDL Reference Ranges: Low < 40 mg/dL High > 59 mg/dL LDL Reference Ranges: Optimal < 100 mg/dL Near Optimal 100-129 mg/dL Borderline 130-159 mg/dL High 160-189 mg/dL Very High > 189 mg/dL [facility] BLOOD ORDERABLES Final Result [facility]
[address] [place] [address], from Last 3 Months or Most Recently Relevant to Health Maintenance Insurance MEDICARE A & B Member Subscriber Plan / Payer (Ef fective 2010-Present) Name:Pattie Alba Member ID:[id number] Relation to Subscriber:Self Name:Pattie Alba Subscriber ID:[id number] Payer ID:[id number] Group ID:Not on file Type:Not on file Address: [facility] [id number] [address] Care Teams Web Analytics Developer Relationship Specialty Start Date End Date Kulwant Bautista MD [facility] [place] [address] [address] [facility] [place] [address] PCP - General Internal Medicine 07/23/16
--- OUTSIDE RECORDS SUMMARY | 2024-10-05 15:28 | XMS_ITS | Encounter Summary ---
Author Organization [employer] ([place], [place], [place], [place]) Address [address] [place] [address] Care Team Providers Care Helper Animal Laboratory Name Role Phone Unavailable Primary Care Provider Unavailabl e Encounter Details Date Type Department Care Team (Late st Contact Info) Description 07/02/2018 Transcribed Document [facility] [place] [facility] [place] [address] ProviderOsiris MD [address] [place] [id number] Social History Tobacco Use Types Packs/Day Years [...] Conversion Note - Historical ProviderMD - 07/02/2018 10:06 AM CDT DATE OF PROCEDURE: 07/02/2018 SURGEON: Bettye Reveles MD ASSISTING SURGEON: Anthony Dolan MD PREOPERATIVE DIAGNOSIS(ES): Chronic left submandibular sialadenitis. POSTOPERATIVE DIAGNOSIS(ES): Chronic left submandibular sialadenitis. PROCEDURE: Excision of left submandibular gland. INDICATIONS FOR PROCEDURE: Ms. Alba is a 67-year-old lady who presented to the ENT Clinic almost a year ago with history of recurrent and chronic sialadenitis of the left submandibular gland. She underwent multiple rounds of antibiotics as well as intraoral drainage. However, the symptoms persisted. The recommendations were made for left submandibular gland excision. The risks and benefits of the procedure were discussed with the patient including but not limited to facial nerve injury, lingual nerve injury, hypoglossal nerve injury, hematoma, persistent infection, even possibly , and she elected to proceed. Consent was signed. PROCEDURE DESCRIPTION: Patient was taken to the operative suite, laid in comfortable position. A time-out was called prior to induction of anesthesia. She underwent general anesthesia via endotracheal intubation with care not to paralyze the patient. Facial nerve monitor was set up and noted to be working appropriately. She was prepped and draped in the usual sterile fashion. A planned incision line was marked prior to prep and injected with 5 mL of lidocaine with 100,000 parts epinephrine. The skin was then cut with a 15 blade. This was approximately 2 cm below the edge of the mandible below the submandibular gland. This was carried down through the soft tissues until the platysma was identified. A small superior flap was made over the platysma and then the platysma muscle was excised. We continued down through the soft tissues. The facial vein was identified. This was ligated and the Omer-Dylan maneuver was performed to protect the facial nerve. Attention was then turned down to the inferior edge of the submandibular gland. It was noted to be very fibrotic and hard as well as stuck to the tissues around it. Starting with the inferior edge of the submandibular gland. The fascia and surrounding tissue was slowly dissected away with care to monitor for the facial nerve. This was continued around the inferior edge superiorly both anteriorly and posteriorly. Using blunt dissection as well as bipolar electrocautery, the posterior belly of the digastric muscle was identified. The submandibular gland was from this and the hypoglossal nerve was identified. The mylohyoid muscle was also identified, however, was noted to be stuck to the gland and was very difficult identify the lingual nerve. We very slowly dissected off the fibers of the mylohyoid muscle from the gland until it was fully free. Again, we continued dissecting the tissues off of the gland. She was noted to have an extremely dilated duct at this point during the case. The gland was then from the lingual nerve as well as the facial artery and vein which were tied off. After we felt confident that we had the duct from the surrounding tissues, we clamped the duct close to the gland itself but given how dilated the duct was, this was tied off. No stones were palpated. The gland was then removed and sent for permanent specimen. We then irrigated the wound copiously. A Valsalva maneuver was performed and no additional bleeding was noted. FloSeal was then placed into wound. The platysma was then closed as well as the deep layers of the soft tissue with a 4-0 Vicryl. The skin was then closed with a 4-0 Monocryl. We elected not to put a drain in because of excellent hemostasis. She was then allowed to wake up from general anesthesia and noted to have good movement of her lower lip and taken to PACU in stable condition. COMPLICATIONS: None. SPECIMENS: Left submandibular gland. ESTIMATED BLOOD LOSS: 15 mL. DISPOSITION: Patient will be monitored in the PACU. If she is doing well, she will be able to be discharged home with instructions to return to the ER if there is any difficulty breathing or excessive neck swelling. We will plan to see her in clinic in one to two weeks. She will continue her doxycycline as previously prescribed. Bettye Reveles MD Dict: 07/02/2018 10:06:55 Trans: 07/02/2018 11:53:52 CC1: Bettye Reveles MD documented in this encounter Plan of Treatment Not on file documented as of this encounter Visit Diagnoses Not on filedocumented in this encounter
--- OUTSIDE RECORDS SUMMARY | 2024-10-05 15:28 | XMS_ITS | Encounter Summary ---
Author Organization [facility] Address [address] [place] [id number] Care Team Providers Care Account Information Clerk Name Role Phone Kuwlant Bautista MD Primary Care Provider [phone] Encounter Details Date Type Department Care Team (Late st Contact Info) Description 05/06/2014 External CPT II WORKFORCE MANAGEMENT ANALYST - [facility] Social History Tobacco Use [...] Description 10/21/2024 2:30 PM EDT Office Visit [facility] CARDIOLOGY [address] [place] [address] Amrit Wolfe MD [address] [facility] [address] [place] [address] Scheduled Procedures Name Priority Associated Diagnoses Date/Ti me LEFT HEART CATH w/cors Angina pectoris documented as of this encounter Visit Diagnoses Not on filedocumented in this encounter Care Teams Account Information Clerk Relationship Specialty Start Date End Date Kulwant Bautista MD [address] [facility] [address] [place] [address] PCP - General Internal Medicine 07/23/16 documented as of this encounter
--- OUTSIDE RECORDS SUMMARY | 2024-10-05 15:28 | XMS_ITS | Encounter Summary ---
Author Organization [facility] Address [address] [place] [id number] Care Team Providers Care Cost Coordinator Name Role Phone Kulwant Bautista MD Primary Care Provider [phone] Encounter Details Date Type Department Care Team (Late st Contact Info) Description 07/13/2013 External CPT II NAIL EXPERT - [facility] Social History Tobacco Use [...] Description 10/21/2024 2:30 PM EDT Office Visit [facility] CARDIOLOGY [address] [place] [address] Amrit Wolfe MD [address] [facility] [address] [place] [address] Scheduled Procedures Name Priority Associated Diagnoses Date/Ti me LEFT HEART CATH w/cors Angina pectoris documented as of this encounter Visit Diagnoses Not on filedocumented in this encounter Care Teams Cost Coordinator Relationship Specialty Start Date End Date Kulwant Bautista MD [address] [facility] [address] [place] [address] PCP - General Internal Medicine 07/23/16 documented as of this encounter
--- OUTSIDE RECORDS SUMMARY | 2024-10-05 15:28 | XMS_ITS | Encounter Summary ---
Author Organization [employer] ([place], [place], [place], [place]) Address [address] [place] [address] Care Team Providers Care Staff Radiologist Name Role Phone Unavailable Primary Care Provider Unavailabl e Encounter Details Date Type Department Care Team (Late st Contact Info) Description 06/19/2018 Transcribed Document [facility] [place] [facility] [place] [address] ProviderOsiris MD [address] [place] [address] Social History Tobacco Use Types [...] Cerner Conversion Note - Osiris ProviderMD - 06/19/2018 1:57 PM CDT Patient: PATTIE ALBA Age: 67 Years Sex: Female : 1950 Chief Complaint Submandibular Gland Edema Primary Care Provider VEL MEEK MD History of Present Illness This patient is a pleasant 67 yo WF who presents with submandibular gland swelling. She states that this started in her 30s but has gotten worse in the last year. She has intermittent swelling for which she has been placed on antibiotics on multiple occasions. She saw Dr Reveles who evaluated her and she was offered a Left Submandibular Gland Excision and agreed to the procedure. Pt denies a h/o DVT/PE. No trouble with anesthesia in the past. No respiratory conditions including COPD/STEVE/asthma. Review of Systems Constitutional: Neg for fevers or chills. Eyes: Neg for blurry vision or change in vision. ENT: Neg for sore throat, ear pain, or dizziness. Pos for submandibular gland swelling. Cardiac: Neg for chest pain or dyspnea on exertion. Respiratory: Neg for shortness of breath. Gastrointestinal: Neg for nausea, vomiting, diarrhea, or constipation. Musculoskeletal: Neg for LE pain or swelling. Neurologic: Neg for headaches or seizures. Psychiatric: Neg for anxiety and depression. Integumentary: Neg for rash. Vital Signs Vitals Signs (last 24 hrs) Last Charted Minimum Maximum Temp 98.5 (JUN 19 14:20) 98.5 (JUN 19 14:20) 98.5 (JUN 19 14:20) Periph HR 70 (JUN 19 14:20) 70 (JUN 19 14:20) 70 (JUN 19 14:20) Resp Rate 16 (JUN 19 14:20) 16 (JUN 19 14:20) 16 (JUN 19 14:20) SBP 134 (JUN 19 14:20) 134 (JUN 19 14:20) 134 (JUN 19 14:20) DBP H 92 (JUN 19 14:20) H 92 (JUN 19 14:20) H 92 (JUN 19 14:20) SpO2 95 (JUN 19 14:20) 95 (JUN 19 14:20) 95 (JUN 19 14:20) Oxygen Settings (Last) Oxygen Therapy Mode: Room air (06/19/18 14:20:00 EDT) Physical Exam Constitutional: This is a pleasant 67 yo WF in no acute distress. HEENT: Normocephalic, atraumatic. PEERLA. Extraocular muscles intact. Conjunctiva pink without exudate. Oropharynx pink and moist. Neck supple. No JVD. Cardiac: SI, S2. RRR. No M/R/G. Respiratory: Lungs CTA bilaterally. No wheezes, rales, or rhonchi. Abdomen: Soft, nontender, nondistended. Active bowel sounds. No visible masses. Musculoskeletal: Bilateral LE without clubbing, cyanosis or edema. Integumentary: Skin is pink, warm and dry. No rashes. Neurologic: CN II-XII grossly intact. Psychiatric: Judgment and affect appropriate. Assessment/Plan 1. Preoperative Evaluation- Pt underwent preoperative laboratory workup and diagnostic studies. 2. Submandibular Gland Edema- Proceed with surgery as scheduled with Dr Reveles on 07/02/2018. 3. Hypertension- Continue Atenolol and Lisinopril. 4. Diabetes Mellitus- FSBS and SSI. 5. Hyperlipidemia- Continue Simvastatin and Fenofibrate. 6. Depression- Continue Paroxetine and Bupropion. 7. Acute vs Chronic Renal Failure- Baseline unknown. I have encouraged hydration. Avoid nephrotoxic medications. Problem List/Past Medical History Ongoing Anxiety disorder Depression Diabetes Hyperlipidemia Hypertension Procedure/Surgical History Colonoscopy, Hysterectomy, Knee arthroplasty, moles removed from arms. Home Medications (9) Active aspirin See Instructions atenolol 50 mg oral tablet 50 mg = 1 Tab, Oral, Daily buPROPion 300 mg/24 hours (XL) oral tablet, extended release , Oral, B84BEhd fenofibrate 134 mg oral capsule 134 mg = 1 Cap, Oral, Daily hydroCHLOROthiazide-lisinopril 12.5 mg-20 mg oral tablet 1 Tab, Oral, Daily ibuprofen 100 mg oral tablet 200 mg = 2 Tab, Oral, At Bedtime Janumet 50 mg-1000 mg oral tablet 1 Tab, Oral, BID PARoxetine 30 mg oral tablet 30 mg = 1 Tab, Oral, BID simvastatin 40 mg oral tablet 40 mg = 1 Tab, Oral, Once a day (at bedtime) Allergies penicillin (Hives) sulfa drugs (Hives) Social History Alcohol Alcohol Use History No. Substance Abuse Drug Use Hx: No. Tobacco Former smoker, quit more than 30 days ago Smoking Status. Family History Pt mother at 90 from old age. Pt father from an accidental at 60. Lab Results WBCs- 5.7 Hbg- 11.9 Hct- 35.9 Plts- 307 Glucose- 94 Na- 143 K- 4.0 BUN- 28 Cr- 1.52 GFR- 34 documented in this encounter Plan of Treatment Not on file documented as of this encounter Visit Diagnoses Not on filedocumented in this encounter
--- OUTSIDE RECORDS SUMMARY | 2024-10-05 15:28 | XMS_ITS | Encounter Summary ---
Author Organization [facility] Address [address] [place] [address] Care Team Providers Care Tissue Rewinder Name Role Phone Kulwant Bautista MD Primary Care Provider Encounter Details Date Type Department Care Team (Late st Contact Info) Description 03/24/2019 External CPT II EXECUTIVE RECEPTIONIST - [facility] Social History Tobacco Use Types Packs/Day Years Used Date Smoking Tobacco: Former Cigarettes Q uit: 1994 Smokeless Tobacco: Never Alcohol Use Standard Drinks/Week Comments Yes 0 (1 standard drink = 0.6 oz pur e alcohol) rare Comments No Sex and Gender Information Value Date Recorded Sex Assigned at Not on file Legal Sex Female 10:19 AM EDT Gender Identity Not on file Sexual Orientation Not on file documented as of this encounter Plan of Treatment Upcoming Encounters Date Type Department Care Team (Late st Contact Info) Description 10/21/2024 2:30 PM EDT Office Visit [facility] CARDIOLOGY [address] [place] [address] Amrit Wolfe MD [address] [facility] [address] [place] [address] Scheduled Procedures Name Priority Associated Diagnoses Date/Ti me LEFT HEART CATH w/cors Angina pectoris documented as of this encounter Visit Diagnoses Not on filedocumented in this encounter Care Teams Tissue Rewinder Relationship Specialty Start Date End Date Kulwant Bautista MD [address] [place] [address] PCP - General Internal Medicine 07/23/16 documented as of this encounter
--- OUTSIDE RECORDS SUMMARY | 2024-10-05 15:28 | XMS_ITS | Clinical Summary ---
Author Organization [facility] Address [address] [place], [place] [id number] Care Team Providers Care Beam Doffer Name Role Phone Kulwant Bautista MD Primary Care Provider [phone] Immunizations Immunization Administration Dates Next Due Hep B, adult 07/06/1996 PPD Skin Test (TB Skin Test) 06/06/2008, 05/27/2007,02/25/2006,02/18/2005,03/2003,04/19/2002 Td (adult), unspecified 12/06/2003 Family History Medical History Relation Name Comments Diabetes Other 1 Hypertension Other 2 Melanoma Other 3 Relation Name Status Comments Other 1 Other 2 Other 3 Social History Tobacco Use Types Packs/Day Years Used Date Smoking Tobacco: Former Alcohol Use Standard Drinks/Week Comments Yes 0 (1 standard drink = 0.6 oz pure alcohol) Alcoholic Drinks/day: Occasional alcohol use Comments Unknown Sex and Gender Information Value Date Recorded Sex Assigned at Not on file Legal Sex Female 7:52 PM EDT Gender Identity Not on file Sexual Orientation Not on file Last Filed Vital Signs Vital Sign Reading Time Taken Comments Blood Pressure 141/79 10/02/2018 1:24 PM EDT Pulse 66 10/02/2018 1:24 PM EDT Temperature 36.5 C (97.7 F) 10/02/2018 1:24 PM EDT Respiratory Rate - - Oxygen Saturation - - Inhaled Oxygen Concentration - - Weight 71.2 kg (156 lb 15.8 oz) 10/02/2018 1:24 PM EDT Height 163.8 cm (5' 4.5 ) 10/02/2018 1:24 PM EDT Body Mass Index 26.53 10/02/2018 1:24 PM EDT Plan of Treatment Not on file Care Teams Beam Doffer Relationship Specialty Start Date End Date Kulwant Bautista MD [address] [facility] [address] [place] [address] [facility] - General 07/21/20
--- OUTSIDE RECORDS SUMMARY | 2024-10-05 15:28 | XMS_ITS | Encounter Summary ---
Author Organization [employer] ([place], [place], [place], [place]) Address [address] [place] [address] Care Team Providers Care Crime Scene Analyst Name Role Phone Unavailable Primary Care Provider Unavailabl e Encounter Details Date Type Department Care Team (Late st Contact Info) Description 07/02/2018 Transcribed Document [facility] [place] [address] [place] [address] ProviderOsiris MD [address] [place] [address] Social History Tobacco Use Types [...] 07/02/2018 7:25 AM CDT [place] [facility] PreOp Summary Primary Physician: ROSSI JULIAN MD Finalized Date/Time: 07/06/18 16:08:30 Pt. Name: PATTIE ALBA /Sex: 1950 Female Med Rec #: [id number] Physician: ROSSI JULIAN MD Financial #: [id number] Pt. Type: O Room/Bed: / Admit/Disch: 07/02/18 04:56:00 - 07/02/18 11:14:00 Institution: [facility] PreOp Case Times Entry 1 In Preop 07/02/18 05:35:00 Ready for Holding n/a Room Patient Ready for 07/02/18 06:43:00 Surgery Patient Out of Preop 07/02/18 07:09:00 Patient Out of n/a Holding Room Last Modified By: JOSE BURROUGHS 07/03/18 06:52:14 SJJabier PreOp Case Times Audit 07/03/18 06:52:14 Foot And Ankle Surgeon: WILSONBR Modifier: [email or web address] <+> 1 Patient Out of Preop 07/02/18 06:54:49 Foot And Ankle Surgeon: WILSONBR Modifier: WILSONBR <+> 1 Patient Ready for Surgery Finalized By: Maris Clemens, RN Document Signatures Signed By: JOSE BURROUGHS 07/03/18 06:52 Maris Clemens RN 07/06/18 16:08 Unfinalized History Date/Time Username Reason for Unfinalizing Freetext Reason for Unfinalizing 07/06/18 16:08 MART Chart Audit documented in this encounter Plan of Treatment Not on file documented as of this encounter Visit Diagnoses Not on filedocumented in this encounter
--- OUTSIDE RECORDS SUMMARY | 2024-10-05 15:28 | XMS_ITS | Encounter Summary ---
Author Organization [employer] ([place], [place], [place], [place]) Address [address] [place] [address] Care Team Providers Care Salary And Wage Administrator Name Role Phone Unavailable Primary Care Provider Unavailabl e Encounter Details Date Type Department Care Team (Late st Contact Info) Description 07/02/2018 Transcribed Document [facility] [place] [address] [place] [address] ProviderOsiris MD [address] [place] [address] Social History Tobacco Use Types [...] Conversion Note - Historical ProviderMD - 07/02/2018 6:38 AM CDT Pre Procedure Adult Entered On: 07/02/2018 6:43 EDT Performed On: 07/02/2018 6:38 EDT by ALLEGRA CLANCY RN Height and Weight, Clinical Dosing Height Source : Stated Height Entry Format : [place] Height, Feet : 5 ft(Converted to: 152 cm, 60 Inch) Height, Inches : 4.6 Inch(Converted to: 0 ft 5 Inch, 11.68 cm) Clinical Height : 164.08 cm Weight Source : Standing scale Weight Entry Format : [place] Clinical Dosing Weight : 71.82 kg Weight, Pounds : 158 lb Body Surface Area (BSA) : 1.78 m2 Body Mass Index : 26.7 kg/m2 (HI) [place] Body Weight : 56 kg ALLEGRA CLANCY RN - 07/02/2018 6:38 EDT Health Histories Smoking Status : Former smoker, quit more than 30 days ago Smokeless Tobacco Status : Never ALLEGRA CLANCY RN - 07/02/2018 6:38 EDT Social History (As Of: 07/02/2018 06:43:11 EDT) Tobacco: Former smoker, quit more than [...] Region : No Tuberculosis Symptoms : None ALLEGRA CLANCY RN - 07/02/2018 6:38 EDT Anesthesia/Transfusion History Family History of Anesthesia Reaction : No prior transfusion(s) Blood Transfusion Acceptable to Patient : Yes Transfusion History : Prior anesthesia without reaction Family History of Anesthesia Reaction : None ALLEGRA CLANCY RN - 07/02/2018 6:38 EDT Functional Assessment Living Situation : Home Patient Lives With : Spouse Current Home Treatments : Blood glucose monitoring ALLEGRA CLANCY RN - 07/02/2018 6:38 EDT Psychosocial History Do You Have a History of the Following? : Anxiety, Depression Currently in Unsafe Situation : No Tried to Harm Yourself in the Past? : No Thoughts of Harming/Killing Yourself : No ALLEGRA CLANCY RN - 07/02/2018 6:38 EDT Advance Directive Patient has Advance Directive *Q : No, patient refuses Advance Directive information ALLEGRA CLANCY RN - 07/02/2018 6:38 EDT Spiritual/Cultural Needs Any Spiritual/Cultural Needs or Requests : No ALLEGRA CLANCY RN - 07/02/2018 6:38 EDT General Info Want Family/Rep/Phys Notified of Admit : No Emergency Contact #1 : [place] Emergency Contact #1 Emergency Contact #1 Relationship : spouse Emergency Contact #2 : - Emergency Contact #2 Phone Number : - Emergency Contact #2 Relationship : - Primary Language : Montenegrin Communication Barrier : None ALLEGRA CLANCY RN - 07/02/2018 6:38 EDT Sleep Apnea Risk Assmt Hx of [...] Sleep Apnea Risk Level Score : 2 ALLEGRA CLANCY RN - 07/02/2018 6:38 EDT Brian Scale Brian Sensory Perception : No impairment Brian Moisture : Rarely moist Brian Activity : Walks frequently Brian Mobility : No limitation Brian Nutrition : Adequate Brian Friction and Shear : No apparent problem Brian Score : 22 ALLEGRA CLANCY RN - 07/02/2018 6:38 EDT Oxygen Therapy Oxygen Therapy Mode : Room air ALLEGRA CLANCY RN - 07/02/2018 6:38 EDT Pain Assessment Pain Assessment : Initial assessment Pain Scale Goal : 3 Pain Scale Used : 0-10 Scale ALLEGRA CLANCY RN - 07/02/2018 6:38 EDT Fall Risk Scales ABCs Fall Injury Risk Identification : None LESLIE Hx Falls Immediate/Within 3 Months : No Leslie Secondary Diagnosis : Yes LESLIE Use of Ambulatory Aid : None LESLIE IV Therapy or IV Access : Yes Leslie Gait/Transferring : Normal, bedrest, immobile Leslie Mental Status : Oriented to own ability Leslie Fall Risk Score : 35 LESLIE Fall Scale Risk Level : 25-45 Medium Risk [place] Fall Interventions : Adequate lighting, Bed in low position, Call device within reach, Reinforced to call for assistance before getting out of bed, Wheels locked Barriers to Learning : None evident ALLEGRA CLANCY RN - 07/02/2018 6:38 EDT Education Topics, Day of Surgery DayofSurgery Education Grid Anesthesia/Sedation : Verbalizes understanding IV's : Verbalizes understanding ALLEGRA CLANCY RN - 07/02/2018 6:38 EDT Valuables and Belongings Valuables and Belongings : Clothing Clothing : Common streetwear Clothing Disposition : With family ALLEGRA CLANCY RN - 07/02/2018 6:38 EDT Pain Scale Intensity : 0 ALLEGRA CLANCY RN - 07/02/2018 6:38 EDT Image 4 - Images currently included in the form version of this document have not been included in the text rendition version of the form. documented in this encounter Plan of Treatment Not on file documented as of this encounter Visit Diagnoses Not on filedocumented in this encounter
--- OUTSIDE RECORDS SUMMARY | 2024-10-05 15:28 | XMS_ITS | Encounter Summary ---
Author Organization [facility] Address [address] [place] [address] Care Team Providers Care Occupational Therapy Teacher Name Role Phone Kulwant Bautista MD Primary Care Provider [phone] Encounter Details Date Type Department Care Team (Late st Contact Info) Description 04/07/[address] JUDGE - [facility] Social History Tobacco Use Types Packs/Day Years Used Date Smoking Tobacco: Former Cigarettes Q uit: 1994 Smokeless Tobacco: Never Alcohol Use Standard Drinks/Week Comments Yes 0 (1 standard drink = 0.6 oz pur e alcohol) rare Comments Unknown Sex and Gender Information Value Date Recorded Sex Assigned at Not on file Legal Sex Female 10:19 AM EDT Gender Identity Not on file Sexual Orientation Not on file documented as of this encounter Plan of Treatment Upcoming Encounters Date Type Department Care Team (Late st Contact Info) Description 10/21/2024 2:30 PM EDT Office Visit [facility] CARDIOLOGY [address] [place] [place] [address] Amrit Wolfe MD [address] [facility] [address] [place] [address] Scheduled Procedures Name Priority Associated Diagnoses Date/Ti me LEFT HEART CATH w/cors Angina pectoris documented as of this encounter Visit Diagnoses Not on filedocumented in this encounter Care Teams Occupational Therapy Teacher Relationship Specialty Start Date End Date Kulwant Bautista MD [address] [place] [address] PCP - General Internal Medicine 07/23/16 documented as of this encounter
--- OUTSIDE RECORDS SUMMARY | 2024-10-05 15:28 | XMS_ITS | Encounter Summary ---
Author Organization [facility] Address [address] [place] [address] Care Team Providers Care Counseling Aide Name Role Phone Kulwant Bautista MD Primary Care Provider [phone] Encounter Details Date Type Department Care Team (Late st Contact Info) Description 10/14/2017 External CPT II DENTAL HYGIENIST - [facility] Social History Tobacco Use [...] Description 10/21/2024 2:30 PM EDT Office Visit [facility] CARDIOLOGY [address] [place] [address] [place] [address] Amrit Wolfe MD [address] [facility] [address] [place] [address] Scheduled Procedures Name Priority Associated Diagnoses Date/Ti me LEFT HEART CATH w/cors Angina pectoris documented as of this encounter Visit Diagnoses Not on filedocumented in this encounter Care Teams Counseling Aide Relationship Specialty Start Date End Date Kulwant Bautista MD [address] [place] [address] PCP - General Internal Medicine 07/23/16 documented as of this encounter
--- OUTSIDE RECORDS SUMMARY | 2024-10-05 15:28 | XMS_ITS | Encounter Summary ---
Author Organization [employer] ([place], [place], [place], [place]) Address [address] [place] [address] Care Team Providers Care Department Chairperson Name Role Phone Unavailable Primary Care Provider Unavailabl e Encounter Details Date Type Department Care Team (Late st Contact Info) Description 07/02/2018 Transcribed Document [facility] [address] [place] [address] ProviderOsiris MD [address] [place] [address] Social History Tobacco Use Types [...] Osiris ProviderMD - 07/02/2018 7:25 AM CDT E Main OR PACU Summary Primary Physician: ROSSI JULIAN MD Finalized Date/Time: 07/02/18 10:39:16 Pt. Name: PATTIE ALBA /Sex: 1950 Female Med Rec #: [id number] Physician: ROSSI JULIAN MD Financial #: [id number] Pt. Type: O Room/Bed: [facility]/ Admit/Disch: 07/02/18 04:56:00 - Institution: [facility] Main OR PACU Case Times Entry 1 In PACU I 07/02/18 09:37:00 Ready for PACU 07/02/18 10:30:00 Discharge Discharge from PACU 07/02/18 10:30:00 I Last Modified By: Tina Rose Rn 07/02/18 10:29:30 [facility] Main OR PACU Case Times Audit 07/02/18 10:38:26 Ultrasonic Hand Solderer: [email or web address] Modifier: [email or web address] <+> 1 Discharge from PACU I 07/02/18 10:29:30 Ultrasonic Hand Solderer: [email or web address] Modifier: [email or web address] <+> 1 Ready for PACU Discharge Finalized By: Tina Rose Rn Document Signatures Signed By: Tina Rose Rn 07/02/18 10:39 documented in this encounter Plan of Treatment Not on file documented as of this encounter Visit Diagnoses Not on filedocumented in this encounter
--- OUTSIDE RECORDS SUMMARY | 2024-10-05 15:28 | XMS_ITS | Encounter Summary ---
Author Organization [facility] Address [address] [place] [address] Care Team Providers Care Renewable Energy Engineer Name Role Phone Kulwant Bautista MD Primary Care Provider [phone] Encounter Details Date Type Department Care Team (Late st Contact Info) Description 04/22/2018 External CPT II AUTOMATION QA TESTER - [facility] Social History Tobacco Use [...] Description 10/21/2024 2:30 PM EDT Office Visit [facility] CARDIOLOGY [address] [place] [place] [place] [address] Amrit Wolfe MD [address] [facility] [address] [place] [address] Scheduled Procedures Name Priority Associated Diagnoses Date/Ti me LEFT HEART CATH w/cors Angina pectoris documented as of this encounter Visit Diagnoses Not on filedocumented in this encounter Care Teams Renewable Energy Engineer Relationship Specialty Start Date End Date Kulwant Bautista MD [address] [place] [address] PCP - General Internal Medicine 07/23/16 documented as of this encounter
--- OUTSIDE RECORDS SUMMARY | 2024-10-05 15:28 | XMS_ITS | Referral Summary ---
Author Organization [employer] ([place], [place], [place], [place]) Address [address] [place] [address] Care Team Providers Care Blueprint Trimmer Name Role Phone Unavailable Primary Care Provider Unavailabl e Social History Tobacco Use Types Packs/Day Years Used Date Smoking Tobacco: Never Assessed Comments Unknown Sex and Gender Information Value Date Recorded Sex Assigned at Female 09/04/2021 8:29 PM CDT Legal Sex Female 8:29 PM CDT Gender Identity Female 09/04/2021 8:29 PM CDT Sexual Orientation Not on file Plan of Treatment Not on file
--- OUTSIDE RECORDS SUMMARY | 2024-10-05 15:28 | XMS_ITS | Clinical Summary ---
Author Organization [employer] ([place], [place], [place], [place]) Address [address] [place] [address] Care Team Providers Care Loader Helper Sorting Yard Name Role Phone Unavailable Primary Care Provider [...]
== END 2024-10-04 23:59 | disposition home or self-care (01) ==
LOC: LAB.DROPOF 10-05 15:26
PROVIDERS: PCP Internal Medicine; Visit Provider Internal Medicine
DX: E11.59 Type 2 diabetes mellitus with other circulatory complications (principal); E83.42 Hypomagnesemia
CPT/HCPCS: 83036; 83735

== ENCOUNTER 2025-01-04 09:25 | Outpatient (CLI) | payer MEDICARE, BC, SELFPAY ==
[2025-01-04 14:52] LABS: Hematocrit 40.7 % (37.0-47.0); Hemoglobin 13.6 g/dL (12.2-16.2); Immature Granulocytes % 0.2 %; Mean Corpuscular HGB Conc 33.4 g/dL (31.8-35.4); Mean Corpuscular Hemoglobin 28.8 pg (27.0-31.2); Mean Corpuscular Volume 86.2 fl (81-99); Nucleated Red Blood Cells % 0 %; Platelet Count 230 K/mm3 (142-424); Red Blood Count 4.72 M/mm3 (4.20-5.40); Red Cell Distribution Width-SD 39.1 fL; White Blood Count 5.4 K/mm3 (4.8-10.8)
[2025-01-04 16:09] LABS: Albumin Level 3.4 g/dl (3.5-5.0); Chloride 101 mmol/L (98-107)
[2025-01-04 16:10] LABS: Potassium 5.4 mmoL/L (3.5-5.1); Sodium 135 mmol/L (136-145)
[2025-01-04 16:12] LABS: Alanine Aminotransferase 16 U/L (12-78); Albumin/Globulin Ratio 1.1 (1.1-1.8); Alkaline Phosphatase 104 U/L (38-126); Anion Gap 9.4 mEq/L (5-15); Aspartate Amino Transferase 25 U/L (14-36); Bilirubin,Total 0.8 mg/dl (0.2-1.3); Blood Urea Nitrogen 26 mg/dl (7-17); Carbon Dioxide 30 mmol/L (22.0-30.0); Cholesterol 142 mg/dl (140-200); Creatinine,Serum 1.00 mg/dl (0.52-1.04); Estimated Glomerular Filt Rate 54 ml/min (>60); GFR (African American) 65 ML/MIN (>60); Globulin 3.1 g/dL (1.3-3.2); Total Protein,Serum 6.5 g/dl (6.3-8.2); Triglycerides 131 mg/dl (30-150)
[2025-01-04 16:13] LABS: Calcium 9.1 mg/dl (8.4-10.2); Glucose 87 mg/dl (74-100); HDL Cholesterol 54 mg/dl (40-60); Magnesium 1.7 mg/dl (1.6-2.3)
[2025-01-04 19:29] LABS: Hemoglobin A1C 5.5 % (4.0-6.0)
--- OUTSIDE RECORDS SUMMARY | 2025-01-05 12:16 | XMS_ITS | Encounter Summary ---
Author Organization [facility] Address [address] [place] [id number] Care Team Providers Care Drafter Automotive Design Name Role Phone Kulwant Bautista MD Primary Care Provider [phone] Encounter Details Date Type Department Care Team (Late st Contact Info) Description 03/24/2019 External CPT II AUTOMOTIVE BRAKE ADJUSTER - [facility] Social History Tobacco Use [...] Care Team (Late st Contact Info) Description 03/23/2026 2:30 PM EST Office Visit [facility] CARDIOLOGY [address] [address] Amrit Wolfe MD [address] [place] [address] Scheduled Procedures Name Priority Associated Diagnoses Date/Ti me LEFT HEART CATH w/cors Angina pectoris documented as of this encounter Visit Diagnoses Not on filedocumented in this encounter Care Teams Drafter Automotive Design Relationship Specialty Start Date End Date Kulwant Bautista MD [address] [facility] [address] [place] [address] PCP - General Internal Medicine 07/23/16 documented as of this encounter
--- OUTSIDE RECORDS SUMMARY | 2025-01-05 12:16 | XMS_ITS | Encounter Summary ---
Author Organization [facility] Address [address] [place] [id number] Care Team Providers Care Honey Extractor Name Role Phone Kulwant Bautista MD Primary Care Provider [phone] Encounter Details Date Type Department Care Team (Late st Contact Info) Description 07/13/2013 External CPT II DUCT CLEANER - [facility] Social History Tobacco Use [...] Description 03/23/2026 2:30 PM EST Office Visit [facility] CARDIOLOGY [address] [facility] [facility] [place] [address] Amrit Wolfe MD [address] [facility] [address] [place] [address] Scheduled Procedures Name Priority Associated Diagnoses Date/Ti me LEFT HEART CATH w/cors Angina pectoris documented as of this encounter Visit Diagnoses Not on filedocumented in this encounter Care Teams Honey Extractor Relationship Specialty Start Date End Date Kulwant Bautista MD [address] [facility] [address] [place] [address] PCP - General Internal Medicine 07/23/16 documented as of this encounter
--- OUTSIDE RECORDS SUMMARY | 2025-01-05 12:16 | XMS_ITS | Clinical Summary ---
Author Organization [facility] Address [address] [place] [address] Care Team Providers Care Warehouse Representative Name Role Phone Kulwant Bautista MD Primary Care Provider [phone] Allergies Active Allergy Reactions Criticality Noted Date Comments Penicillins Anaphylaxis High 09/03/2016 Sulfa Antibiotics Itching,Rash Low 09/03/2016 Medications atenolol (TENORMIN) 50 MG tablet Take 0.5 tablets by mouth Every Morning. Active Crabtree-3 Fatty Acids (OMEGA 3 PO) Take 1 capsule by mouth Every Morning. Active Multiple Vitamins-Minera ls (OCUVITE PO) Take 1 tablet by mouth Daily. Active amLODIPine (NORVASC) 5 MG tablet Take 1 tablet by mouth Daily. for blood pressure 1 Active omeprazole (priLOSEC) 20 MG capsule TAKE 1 CAPSULE BY MOUTH IN THE MORNING FOR GERD 1 Active vitamin E 1000 UNIT capsule Take 1 capsule by mouth Daily. Active Cyanocobalamin 1000 MCG/ML kit Inject as directed Every 30 (Thirty) Days. Active simvastatin (ZOCOR) 40 MG tablet Take 1 tablet by mouth Every Night. Active NON FORMULARY CPAP AT NIGHT Ac tive PARoxetine (PAXIL) 20 MG tablet Take 1 tablet by mouth Every Evening. 4 Active PARoxetine (PAXIL) 30 MG tablet Take 1 tablet by mouth Every Morning. 4 Active MAGnesium-Oxide 400 (240 Mg) MG tablet Take 1 tablet by mouth Daily. 5 Active Ozempic, 2 MG/DOSE, 8 MG/3ML solution pen-injector Inject 2 mg under the skin into the appropriate area as directed 1 (One) Time Per Week. 5 Active lisinopril (PRINIVIL,ZESTR IL) 20 MG tablet Take 1 tablet by mouth Daily. 30 tablet 11 5 Active Active Problems No known active problems Encounters Date Type Department Care Team Description 10/21/2024 2:30 PM EDT Office Visit [facility] CARDIOLOGY [address] [facility] [place] [address] Amrit Wolfe MD Precordial pain (Primary Dx); Primary hypertension; Mixed hyperlipidemia; Type 2 diabetes mellitus without complication, without long-term current use of insulin 10/21/2024 Travel from Last 3 Months Family History Medical History Relation Name Comments [...] Average Number of Drinks Not on file 021 Frequency of Binge Drinking Not on file 06/09 Comments No Sex and Gender Information Value Date Recorded Sex Assigned at Not on file Legal Sex Female 10:19 AM EDT Gender Identity Not on file Sexual Orientation Not on file Last Filed Vital Signs Vital Sign Reading Time Taken Comments Blood Pressure 94/58 10/21/2024 2:28 PM EDT Pulse 75 10/21/2024 2:28 PM EDT Temperature 36.3 C (97.4 F) 09/11/2016 6:12 AM EDT Respiratory Rate 18 09/11/2016 6:12 AM EDT Oxygen Saturation 97% 10/21/2024 2:28 PM EDT Inhaled Oxygen Concentration - - Weight 60.8 kg (134 lb) 10/21/2024 2:28 PM EDT Height 162.6 cm (5' 4 ) 10/21/2024 2:28 PM EDT Body Mass Index 23 10/21/2024 2:28 PM EDT Plan of Treatment Upcoming Encounters Date Type Department Care Team (Late st Contact Info) Description 03/23/2026 2:30 PM EST Office Visit [facility] CARDIOLOGY [address] [place] [address] [place] [address] Amrit Wolfe MD [address] [place] [address] Scheduled Procedures Name Priority Associated Diagnoses Date/Ti me LEFT HEART CATH w/cors Angina pectoris Health Maintenance Due Date Last Done Comments DXA SCAN 1950 DIABETIC FOOT EXAM 1958 URINE MICROALBUMIN-CREATININ E RATIO (uACR) 1960 COLOGUARD 1993 COLON CANCER SCREENING 5 YEA R SIGMOIDOSCOPY 1993 CT COLONOGRAPHY 1993 FECAL OCCULT BLOOD TEST 1993 FIT Testing (1 year) 1993 DIABETIC EYE EXAM 07/28/2014 07/28/2013 ANNUAL WELLNESS VISIT 09/03/2016 HEPATITIS C SCREENING 09/03/2016 HEMOGLOBIN A1C 06/19/2023 12/18/2022, 12/08, 09/18/2022, Additional history exists RSV Vaccine - Adults (1 - 1- dose 75+ series) 07/10/2023 LIPID PANEL 09/19/2023 09/18/2022, 09/07, 06/26/2020, Additional history exists INFLUENZA VACCINE 10/08/2024 12/05/2023, , 12/12/2021, Additional history exists COVID-19 Vaccine (6 - Pfizer risk 2023- season) 2024 01/03/2024, 12/12/2021, 12/11/2020, Additional history exists COLONOSCOPY 06/15/2025 06/16/2015 COLORECTAL CANCER SCREENING 06/15/2025 TDAP/TD VACCINES (2 - Td or Tdap) 04/14/2033 024, 12/06/2003 MAMMOGRAM Discontinued 05/04/2018, 04/11, 05/01/2015 Pneumococcal Vaccine 50+ Completed 08/15/2021, 11/09 ZOSTER VACCINE Completed 09/17/2022, 07/16/2022 Procedures Procedure Name Priority Date/Time Associated Diagnosis Comments HEMOGLOBIN A1C STAT 09/11/2016 6:26 AM EDT LIPID PANEL STAT 09/11/2016 6:26 AM EDT from Last 3 Months or Most Recently Relevant to Health Maintenance Results * (ABNORMAL) Hemoglobin A1c (09/11/2016 6:26 AM EDT) Hemoglobin A1C 7.20(H) 4.80 - 5.60 % 09/11/2016 9:39 AM EDT [facility] Blood Line / Unknown 09/11/2016 6: 26 AM EDT 09/11/2016 6:38 AM EDT [facility] - 09/11/2016 9:39 AM EDT The [place] [employer] recommends maintenance of Hemoglobin A1C at 7.0% or lower. Goals for Hemoglobin A1C reduction may need to be modified if hypoglycemia is a problem. [facility] BLOOD ORDERABLES Final Result [facility]
[address] [place] [address], * Lipid Panel (09/11/2016 6:26 AM EDT) Total Cholesterol 155 0 - 200 mg/dL 09/11/2016 7:33 AM EDT [facility] Triglycerides 123 0 - 150 mg/dL 09/11/2016 7:33 AM EDT [facility] HDL Cholesterol 40 40 - 60 mg/dL 09/11/2016 7:33 AM EDT [facility] LDL Cholesterol 106 0 - 130 mg/dL 09/11/2016 7:33 AM EDT [facility] Blood Line / Unknown 09/11/2016 6: 26 AM EDT 09/11/2016 6:38 AM EDT Narrative [facility] - 09/11/2016 7:33 AM EDT Cholesterol [...] [facility] BLOOD ORDERABLES Final Result [facility]
[address] [place] [address], [place] [phone] from Last 3 Months or Most Recently Relevant to Health Maintenance Insurance MEDICARE A & B [facility] Care Teams Warehouse Representative Relationship Specialty Start Date End Date Kulwant Bautista MD [address] [facility] [address] [place] [address] PCP - General Internal Medicine 07/23/16
--- OUTSIDE RECORDS SUMMARY | 2025-01-05 12:16 | XMS_ITS | Encounter Summary ---
Author Organization [facility] Address [address] [place] [phone] Care Team Providers Care Wafer Cleaner Name Role Phone Kulwant Bautista MD Primary Care Provider [phone] Encounter Details Date Type Department Care Team (Late st Contact Info) Description 10/14/2017 External CPT II CUSTOMER EXPERIENCE MANAGER - [facility] Social History Tobacco Use [...] Description 03/23/2026 2:30 PM EST Office Visit [facility] CARDIOLOGY [address] [place] [address] Amrit Wolfe MD [address] [place] [address] Scheduled Procedures Name Priority Associated Diagnoses Date/Ti me LEFT HEART CATH w/cors Angina pectoris documented as of this encounter Visit Diagnoses Not on filedocumented in this encounter Care Teams Wafer Cleaner Relationship Specialty Start Date End Date Kulwant Bautista MD [address] [facility] [address] [place] [address] PCP - General Internal Medicine 07/23/16 documented as of this encounter
--- OUTSIDE RECORDS SUMMARY | 2025-01-05 12:16 | XMS_ITS | Encounter Summary ---
Author Organization [facility] Address [address] [place] [phone] Care Team Providers Care Turpentine Farmer Name Role Phone Kulwant Bautista MD Primary Care Provider [phone] Encounter Details Date Type Department Care Team (Late st Contact Info) Description 09/07/2013 External CPT II PAPER BAG MACHINE OPERATOR - [facility] Social History Tobacco Use [...] Description 03/23/2026 2:30 PM EST Office Visit [facility] CARDIOLOGY [address] [facility] [address] [place] [address] Amrit Wolfe MD [address] [facility] [address] [place] [address] Scheduled Procedures Name Priority Associated Diagnoses Date/Ti me LEFT HEART CATH w/cors Angina pectoris documented as of this encounter Visit Diagnoses Not on filedocumented in this encounter Care Teams Turpentine Farmer Relationship Specialty Start Date End Date Kulwant Bautista MD [address] [facility] [address] [place] [address] PCP - General Internal Medicine 07/23/16 documented as of this encounter
--- OUTSIDE RECORDS SUMMARY | 2025-01-05 12:16 | XMS_ITS | Encounter Summary ---
Author Organization [facility] Address [address] [place] [phone] Care Team Providers Care Representative Phlebotomy Services Name Role Phone Kulwant Bautista MD Primary Care Provider [phone] Encounter Details Date Type Department Care Team (Late st Contact Info) Description 05/06/2014 External CPT II SPRING ASSEMBLER - [facility] Social History Tobacco Use [...] Description 03/23/2026 2:30 PM EST Office Visit [facility] C[facility]IOLOG[facility] [address] [facility] [place] [place] [address] Amrit Wolfe MD [address] [facility] [address] [place] [address] Scheduled Procedures Name Priority Associated Diagnoses Date/Ti me LEFT HEART CATH w/cors Angina pectoris documented as of this encounter Visit Diagnoses Not on filedocumented in this encounter Care Teams Representative Phlebotomy Services Relationship Specialty Start Date End Date Kulwant Bautista MD [address] [facility] [address] [place] [address] PCP - General Internal Medicine 07/23/16 documented as of this encounter
--- OUTSIDE RECORDS SUMMARY | 2025-01-05 12:16 | XMS_ITS | Encounter Summary ---
Author Organization [facility] Address [address] [place] [phone] Care Team Providers Care Sas Bi Developer Name Role Phone Kulwant Bautista MD Primary Care Provider [phone] Encounter Details Date Type Department Care Team (Late st Contact Info) Description 04/07/2017 External CPT II PROJECT FACILITATOR - [facility] Social History Tobacco Use [...] Description 03/23/2026 2:30 PM EST Office Visit [facility] C[facility] [address] [place] [address] Amrit Wolfe MD [address] [place] [address] Scheduled Procedures Name Priority Associated Diagnoses Date/Ti me LEFT HEART CATH w/cors Angina pectoris documented as of this encounter Visit Diagnoses Not on filedocumented in this encounter Care Teams Sas Bi Developer Relationship Specialty Start Date End Date Kulwant Bautista MD [address] [facility] [address] [place] [address] PCP - General Internal Medicine 07/23/16 documented as of this encounter
--- OUTSIDE RECORDS SUMMARY | 2025-01-05 12:16 | XMS_ITS | Encounter Summary ---
Author Organization [facility] Address [address] [place] [phone] Care Team Providers Care Academic Affairs Dean Name Role Phone Kulwant Bautista MD Primary Care Provider [phone] Encounter Details Date Type Department Care Team (Late st Contact Info) Description 04/22/2018 External CPT II GREASE MAN - [facility] Social History Tobacco Use [...] Description 03/23/2026 2:30 PM EST Office Visit [facility] CARDIOLOG[facility] [address] [place] [address] Amrit Wolfe MD [address] [place] [address] Scheduled Procedures Name Priority Associated Diagnoses Date/Ti me LEFT HEART CATH w/cors Angina pectoris documented as of this encounter Visit Diagnoses Not on filedocumented in this encounter Care Teams Academic Affairs Dean Relationship Specialty Start Date End Date Kulwant Bautista MD [address] [facility] [address] [place] [address] PCP - General Internal Medicine 07/23/16 documented as of this encounter
--- OUTSIDE RECORDS SUMMARY | 2025-01-05 12:16 | XMS_ITS | Encounter Summary ---
Author Organization [facility] Address [address] [place] [phone] Care Team Providers Care Aluminum Pool Installer Name Role Phone Kulwant Bautista MD Primary Care Provider [phone] Encounter Details Date Type Department Care Team (Late st Contact Info) Description 09/21/2013 External CPT II KARDEX CLERK - [facility] Social History Tobacco [...] Description 03/23/2026 2:30 PM EST Office Visit [facility] [address] [facility] [place] [address] Amrit Wolfe MD [address] [facility] [address] [place] [address] Scheduled Procedures Name Priority Associated Diagnoses Date/Ti me LEFT HEART CATH w/cors Angina pectoris documented as of this encounter Visit Diagnoses Not on filedocumented in this encounter Care Teams Aluminum Pool Installer Relationship Specialty Start Date End Date Kulwant Bautista MD [address] [facility] [address] [place] [address] PCP - General Internal Medicine 07/23/16 documented as of this encounter
== END 2025-01-04 23:59 ==
LOC: LAB.DROPOF 01-05 12:14
PROVIDERS: PCP Internal Medicine; Visit Provider Internal Medicine
DX: E78.5 Hyperlipidemia, unspecified (principal); I10 Essential (primary) hypertension; E11.42 Type 2 diabetes mellitus with diabetic polyneuropathy; E11.59 Type 2 diabetes mellitus with other circulatory complications; E83.42 Hypomagnesemia
CPT/HCPCS: 80053; 80061; 83036; 83735; 85025